=== PATIENT | male | born 1950 | race Caucasian/White ===

== ENCOUNTER 2016-07-10 08:55 | Outpatient (CLI) | payer MEDICARE, OTHER | END 2016-07-10 08:56 | disposition home or self-care (01) | DX: Z12.5 Encounter for screening for malignant neoplasm of prostate (principal); I10 Essential (primary) hypertension; G47.30 Sleep apnea, unspecified; D12.6 Benign neoplasm of colon, unspecified; I25.10 Atherosclerotic heart disease of native coronary artery without angina pectoris; R73.9 Hyperglycemia, unspecified; M54.5 Low back pain | CPT/HCPCS: 36415; 80053; G0103 ==

== ENCOUNTER 2016-10-31 08:00 | Outpatient (CLI) | payer MEDICARE, OTHER ==
[2016-10-31 14:22] LABS: ALBUMIN/GLOBULIN RATIO 1.8 (1.0-2.2); BILIRUBIN,TOTAL 0.8 mg/dL (0.2-1.0); CALCIUM 9.2 mg/dL (8.5-10.3); CREATININE 0.8 mg/dL (0.6-1.2); POTASSIUM 3.6 mmol/L (3.5-5.0); TOTAL PROTEIN 6.7 g/dL (6.7-8.2)
[2016-10-31 14:26] LABS: HEMOGLOBIN A1C 0.72 g/dL
== END 2016-10-31 08:01 | disposition home or self-care (01) ==
LOC: LAB.WCP 08:00
PROVIDERS: ATTEND Family Medicine
DX: M54.5 Low back pain (principal); R73.01 Impaired fasting glucose; G47.30 Sleep apnea, unspecified; I25.10 Atherosclerotic heart disease of native coronary artery without angina pectoris; K22.70 Barrett's esophagus without dysplasia
CPT/HCPCS: 36415; 80053; 83036

== ENCOUNTER 2017-04-29 08:00 | Outpatient (CLI) | payer MEDICARE, OTHER ==
[2017-04-29 12:31] LABS: BASOPHILS % (AUTO) 0.6 %; EOSINOPHILS # (AUTO) 0.4 10^3/uL (0.0-0.7); EOSINOPHILS % (AUTO) 8.3 %; HCT - HEMATOCRIT 43.2 % (42.0-52.0); HGB - HEMOGLOBIN 14.8 g/dL (14.0-18.0); LYMPHOCYTES # (AUTO) 1.6 10^3/uL (1.5-3.5); LYMPHOCYTES % (AUTO) 29.7 %; MEAN CORPUSCULAR HGB CONC 34.3 g/dL (32.0-36.0); MEAN CORPUSCULAR VOLUME 90.3 fL (80.0-94.0); MEAN PLATELET VOLUME 10.4 fL (7.4-11.4); MONOCYTES # (AUTO) 0.3 10^3/uL (0.0-1.0); MONOCYTES % (AUTO) 6.4 %; NEUTROPHILS # (AUTO) 2.9 10^3/uL (1.5-6.6); RED BLOOD COUNT 4.78 10^6/uL (4.70-6.10); RED CELL DISTRIBUTION WIDTH 14.5 % (12.0-15.0); UNCORRECTED WHITE BLOOD COUNT 5.4 x10^3/uL; WHITE BLOOD COUNT 5.4 x10^3/uL (4.8-10.8)
[2017-04-29 12:59] LABS: ALBUMIN/GLOBULIN RATIO 1.8 (1.0-2.2); BILIRUBIN,TOTAL 0.7 mg/dL (0.2-1.0); BUN - BLOOD UREA NITROGEN 20 mg/dL (6-20); CALCIUM 9.6 mg/dL (8.5-10.3); CARBON DIOXIDE - CO2 29 mmol/L (21-32); CHLORIDE 101 mmol/L (101-111); CHOLESTEROL 95 mg/dL; CREATININE 0.9 mg/dL (0.6-1.2); GFR - MDRD 84 (>89); GLUCOSE 97 mg/dL (70-100); HDL CHOLESTEROL 32 mg/dL; LDL/HDL RATIO 1.3 (<3.6); POTASSIUM 3.7 mmol/L (3.5-5.0); SODIUM 138 mmol/L (135-145); TOTAL PROTEIN 7.3 g/dL (6.7-8.2); TRIGLYCERIDES 113 mg/dL; VLDL CHOLESTEROL 23 mg/dL
[2017-04-29 13:24] LABS: HEMOGLOBIN A1C 0.58 g/dL
== END 2017-04-29 08:01 | disposition home or self-care (01) ==
LOC: LAB.WCP 08:00
PROVIDERS: ATTEND Family Medicine
DX: M54.5 Low back pain (principal); R73.01 Impaired fasting glucose; I25.10 Atherosclerotic heart disease of native coronary artery without angina pectoris; M17.0 Bilateral primary osteoarthritis of knee
CPT/HCPCS: 36415; 80053; 80061; 83036; 85025

== ENCOUNTER 2017-05-13 14:20 | Outpatient (CLI) | payer MEDICARE, OTHER ==
[2017-05-13 19:02] LABS: BASOPHILS % (AUTO) 0.4 %; EOSINOPHILS # (AUTO) 0.5 10^3/uL (0.0-0.7); EOSINOPHILS % (AUTO) 8.7 %; HCT - HEMATOCRIT 42.5 % (42.0-52.0); HGB - HEMOGLOBIN 14.3 g/dL (14.0-18.0); LYMPHOCYTES # (AUTO) 1.5 10^3/uL (1.5-3.5); LYMPHOCYTES % (AUTO) 25.5 %; MEAN CORPUSCULAR HEMOGLOBIN 30.7 pg (27.0-31.0); MEAN CORPUSCULAR HGB CONC 33.7 g/dL (32.0-36.0); MEAN CORPUSCULAR VOLUME 91.2 fL (80.0-94.0); MEAN PLATELET VOLUME 10.4 fL (7.4-11.4); MONOCYTES # (AUTO) 0.3 10^3/uL (0.0-1.0); MONOCYTES % (AUTO) 5.7 %; NEUTROPHILS # (AUTO) 3.5 10^3/uL (1.5-6.6); NEUTROPHILS % (AUTO) 59.7 %; RED BLOOD COUNT 4.65 10^6/uL (4.70-6.10); RED CELL DISTRIBUTION WIDTH 14.5 % (12.0-15.0); UNCORRECTED WHITE BLOOD COUNT 5.9 x10^3/uL; WHITE BLOOD COUNT 5.9 x10^3/uL (4.8-10.8)
[2017-05-13 19:11] LABS: BILIRUBIN,TOTAL 0.8 mg/dL (0.2-1.0); CALCIUM 8.7 mg/dL (8.5-10.3); CREATININE 0.8 mg/dL (0.6-1.2); POTASSIUM 3.6 mmol/L (3.5-5.0); TOTAL PROTEIN 6.5 g/dL (6.7-8.2)
[2017-05-13 19:21] LABS: H. PYLORI IGG ANTIBODY Negative (Negative); HPYLORI NEG QC Negative (Negative); HPYLORI POS QC POSITIVE (Positive)
== END 2017-05-13 14:21 | disposition home or self-care (01) ==
LOC: LAB.WCP 14:20
PROVIDERS: ATTEND Family Medicine
DX: R10.13 Epigastric pain (principal)
CPT/HCPCS: 36415; 80053; 83690; 85025; 87339

== ENCOUNTER 2017-05-15 11:28 | Outpatient (CLI) | payer MEDICARE, OTHER ==
[2017-05-15] MEDS ORDERED: IOPAMIDOL-300 50 ML VIAL ONE (11:40)
[2017-05-15] MEDS ORDERED: IOPAMIDOL-300 100 ML VIAL ONE (11:40)
[2017-05-15] MEDS ORDERED: IOPAMIDOL-300 50 ML VIAL PO ONE (11:47)
[2017-05-15] MEDS ORDERED: IOPAMIDOL-300 100 ML VIAL IVP ONE (13:28)
--- NOTE | 2017-05-15 19:32 | CT Report ---
ABDOMEN AND PELVIS CT: 05/15/2017 COMPARISON: Pelvis CT 01/18/2010. INDICATION: Epigastric pain. TECHNIQUE: Axial imaging of the abdomen and pelvis was performed with intravenous and oral contrast, 100 mL Isovue-300. In accordance with CT protocol optimization, one or more of the following dose reduction techniques were utilized for this exam: automated exposure control, adjustment of mA and/or KV based on patient size, or use of iterative reconstructive technique. FINDINGS: Sternotomy is noted. Several hepatic cysts measure up to 1.9 cm. A right renal stone measures 9 mm and appears nonobstructive. There are several left renal stones that measure up to 9 mm. There is an 8 mm stone in the proximal left ureter which appears to cause mild obstruction. The spleen, pancreas, and adrenal glands appear unremarkable. No free air or free fluid is seen in the abdomen or pelvis. Again seen is a right inguinal hernia which contains a cystocele. Penile implant is noted. No abnormality of bowel is demonstrated. No bone lesions. Right renal cortical cyst is noted. IMPRESSION: BILATERAL RENAL STONES. IN BOTH KIDNEYS THEY MEASURE UP TO APPROXIMATELY 9 MM. IN ADDITION, THERE IS AN 8 MM OBSTRUCTING STONE IN THE PROXIMAL LEFT URETER. RIGHT INGUINAL HERNIA CONTAINS A CYSTOCELE. JOB #: [id number] EXT JOB #: [id number] GONZALO
== END 2017-05-15 11:29 | disposition home or self-care (01) ==
LOC: DI 11:28
PROVIDERS: ATTEND Family Medicine
DX: N20.2 Calculus of kidney with calculus of ureter (principal)
CPT/HCPCS: 74177; Q9967

== ENCOUNTER 2017-05-17 22:28 | Emergency (ER) | payer MEDICARE, OTHER ==
[2017-05-17 23:34] LABS: BILIRUBIN,URINE NEGATIVE (NEGATIVE)
[2017-05-17 23:41] LABS: UA w/ MICROSCOPIC CHARGE YES; UR CULTURE IF IND NOT INDICATED; WBC,URINE 0-3 /HPF (0-3)
[2017-05-17 23:50] LABS: BASOPHILS % (AUTO) 0.7 %; EOSINOPHILS # (AUTO) 0.4 10^3/uL (0.0-0.7); EOSINOPHILS % (AUTO) 5.6 %; HCT - HEMATOCRIT 42.6 % (42.0-52.0); HGB - HEMOGLOBIN 14.9 g/dL (14.0-18.0); LYMPHOCYTES # (AUTO) 1.7 10^3/uL (1.5-3.5); LYMPHOCYTES % (AUTO) 26.4 %; MEAN CORPUSCULAR HEMOGLOBIN 31.5 pg (27.0-31.0); MEAN PLATELET VOLUME 9.3 fL (7.4-11.4); MONOCYTES # (AUTO) 0.4 10^3/uL (0.0-1.0); MONOCYTES % (AUTO) 6.8 %; NEUTROPHILS % (AUTO) 60.5 %; RED BLOOD COUNT 4.74 10^6/uL (4.70-6.10); RED CELL DISTRIBUTION WIDTH 14.3 % (12.0-15.0); UNCORRECTED WHITE BLOOD COUNT 6.5 x10^3/uL; WHITE BLOOD COUNT 6.5 x10^3/uL (4.8-10.8)
[2017-05-17 23:59] LABS: ALBUMIN/GLOBULIN RATIO 1.7 (1.0-2.2); BILIRUBIN,TOTAL 0.7 mg/dL (0.2-1.0); CALCIUM 9.1 mg/dL (8.5-10.3); CREATININE 0.8 mg/dL (0.6-1.2); POTASSIUM 3.5 mmol/L (3.5-5.0); TOTAL PROTEIN 7.2 g/dL (6.7-8.2)
--- NOTE | 2017-05-18 00:14 | Ultrasound Preliminary Report ---
Exam: US RETROPERITONEAL IMPRESSION: 1. Nonspecific moderate post void bladder volume residual. 2. Mild to moderate left-sided hydronephrosis. Faintly visible left ureteral jet. This may be due to a recently passed stone from the left renal collecting system into the bladder. Partially obstructing stone in the ureter difficult to exclude with certainty. 3. Infrarenal stones noted bilaterally, 2 in the right and at least one on the left. These measure up to 7 mm within the right lower kidney. [facility] SITE ID: [id number]
--- NOTE | 2017-05-18 00:21 | Ultrasound Report ---
EXAM: RENAL ULTRASOUND EXAM DATE: 05/17/2017 11:45 PM. CLINICAL HISTORY: Kidney stones, follow-up. COMPARISON: CT 05/11/2017. TECHNIQUE: Real-time scanning was performed with static images obtained. FINDINGS: Right Kidney: 12.6 x 5.1 x 5.0 cm. No suspicious renal lesion seen at this time. There is a tiny cyst arising posterolaterally from the right mid to upper kidney measuring 9 mm. There are two stones wit hin the right kidney. Upper pole stone measures 5 mm and the lower pole stone measures 7 mm. Left Kidney: 14.5 x 6.5 x 6.2 cm. Normal parenchymal echogenicity. There is mild hydronephrosis. Ther e is a 6 mm mid kidney stone. Mild to moderate hydronephrosis. Bladder: Bilateral ureteral jets are visualized. Bladder measures 160 mL in volume prevoid. Postvoid volume is 47 mL. Other: None. IMPRESSION: 1. Nonspecific moderate postvoid bladder volume residual. 2. Mild to moderate left-sided hydronephrosis. Faintly visible left ureteral jet. This may be due to a recently passed stone from the left renal collecting system into the bladder. Partially obstructing stone within the ureter difficult to exclude with certainty. 3. Infrarenal stones noted bilaterally, two in the right and at least one on the left. These measure up to 7 mm within the right lower kidney. [facility] Referring Provider Line: [phone] SITE ID: [id number]
--- NOTE | 2017-05-18 00:43 | ED Physician Documentation ---
PD HPI ABD PAIN - Stated complaint Stated Complaint: ABD PX - Chief complaint Chief Complaint: Abd Pain - History obtained from History obtained from: Patient, Family - History of Present Illness Timing - onset: How many weeks ago (3) Timing - details: Now resolved, Waxing and waning Quality: Cramping, Aching, Indigestion Location: Epigastric Worsened by: Eating Associated symptoms: No: Nausea, Vomiting, Diarrhea, Constipation Similar symptoms before: Work up / diagnostics, Treatment, Follow up Recently seen: Clinic - Additional information Additional information: patient is a 67 year old male with a history of GERD, perkins's esophagus and bypass surgery who is presenting to the emergency department for a three week intermittent history of abdominal pain. patient went to see his pmd yesterday who ordered a CT abdomen/pelvis but patient did not know the results. patient states that he had some more pain tonight so he came in for evaluation. patient reports that he has follow up egd on thursday. patient takes daily ppi, but did not take anything for the acute pain. Review of Systems Constitutional: denies: Fever, Chills Eyes: reports: Reviewed and negative Ears: reports: Reviewed and negative Nose: reports: Reviewed and negative Throat: reports: Reviewed and negative Cardiac: denies: Chest pain / pressure, Palpitations, Pedal edema Respiratory: denies: Dyspnea, Cough, Wheezing GI: reports: Abdominal Pain. denies: Nausea, Vomiting, Constipation, Diarrhea : denies: Dysuria, Frequency, Hematuria Musculoskeletal: denies: Back pain, Extremity pain Neurologic: denies: Generalized weakness, Focal weakness, Numbness Immunocompromised: denies: Immunocompromised PD PAST MEDICAL HISTORY - Past Medical History Past Medical History: Yes Cardiovascular: Hypertension, High cholesterol Respiratory: Sleep apnea, CPAP use Neuro: None Endocrine/Autoimmune: None GI: GERD, Colon polyps : None HEENT: Other Psych: Depression, ADD/ADHD Musculoskeletal: None Derm: None Other Past Medical History: Perkins's esophagus - Past Surgical History Past Surgical History: Yes General: Hiatal hernia repair Cardiovascular: CABG HEENT: Tonsil/Adenoidectomy Derm: Skin cancer surgery - Present Medications Home Medications: Ambulatory Orders Medication Instructions Recorded Confirmed Aspirin 81 mg PO DAILY 08/18/13 04/23/16 Cetirizine [ZyrTEC] 10 mg PO QPM 08/18/13 04/23/16 FLUoxetine [PROzac] 30 mg PO QPM 08/18/13 04/23/16 Furosemide 20 mg PO DAILY 08/18/13 04/23/16 Levothyroxine [Synthroid] 100 mcg PO DAILY 08/18/13 04/23/16 Losartan [Cozaar] 50 mg PO DAILY 08/18/13 04/23/16 Modafinil 200 mg PO DAILY 08/18/13 04/23/16 Potassium Chloride [K-Dur] 20 meq PO ONCE 08/18/13 04/23/16 lamoTRIgine [LaMICtal] 200 mg PO QPM 08/18/13 04/23/16 Calcium Carb/D3/Magnesium/Zinc 1 tab PO DAILY 02/10/14 04/23/16 [Ryan Mag Zinc + D3 Tablet] Cyanocobalamin (Vitamin B-12) 1,000 mcg PO DAILY 02/10/14 04/23/16 [B-12] Fluticasone [Flonase] 1 sprays MIKEY DAILY PRN 02/10/14 04/23/16 Glucosamine Sulfate Dipot Chlr 1,500 mg PO DAILY 02/10/14 04/23/16 [Glucosamine] Multivitamin [Multivitamins] 1 each PO DAILY 02/10/14 04/23/16 [place]mond-3 Fatty Acids/Fish Oil 1 cap PO DAILY 02/10/14 04/23/16 [[place] 3 1,000 mg Softgel] Ubidecarenone [Co Q-10] 50 mg PO DAILY 02/10/14 04/23/16 Albuterol Sulfate 1 puffs INH DAILY PRN 04/23/16 04/23/16 Cholecalciferol (Vitamin D3) 1 tab PO DAILY 04/23/16 04/23/16 [Vitamin D3] Naproxen Sodium [Aleve] 1 tab PO DAILY PRN 04/23/16 04/23/16 Pantoprazole [Protonix] 1 tab PO DAILY 04/23/16 04/23/16 Rosuvastatin Calcium [Crestor] 1 tab PO DAILY 04/23/16 04/23/16 Temazepam 1 tab PO DAILY 04/23/16 04/23/16 hydroCHLOROthiazide 1 tab PO DAILY 04/23/16 04/23/16 [Hydrochlorothiazide] - Allergies Allergies/Adverse Reactions: Allergies Allergy/AdvReac Type Severity Reaction Status Date / Time No Known Drug Allergies Allergy Verified 02/14/14 10:11 - Social History Does the pt smoke?: No Smoking Status: Never smoker Does the pt drink ETOH?: No Does the pt have substance abuse?: No - Immunizations Immunizations are current?: Yes PD ED PE NORMAL - Vitals Vital signs reviewed: Yes - General General: Alert and oriented X 3, No acute distress, Well developed/nourished - HEENT HEENT: Atraumatic, PERRL - Neck Neck: Supple, no meningeal sign, No JVD - Cardiac Cardiac: RRR, No murmur - Respiratory Respiratory: No respiratory distress, Clear bilaterally - Abdomen Abdomen: Soft - Derm Derm: Normal color, Warm and dry, No rash - Extremities Extremities: No deformity, No tenderness to palpate, Normal ROM s pain, No edema - Neuro Neuro: Alert and oriented X 3, No motor deficit, No sensory deficit, Normal speech - Psych Psych: Normal mood PD ED PE EXPANDED - Abdomen Abdomen: Tender to palpation, Epigastric, Surgical scars, Other (obese abdomen) . No: Rebound, Guarding Results - Vitals Vitals: Vital Signs - 24 hr 05/17/17 22:32 Temperature 36.3 C L Heart Rate 74 Respiratory 18 Rate Blood Pressure 148/91 H O2 Saturation 100 Oxygen O2 Source Room air - EKG (time done) 2240 Rate: Rate (enter#) (66) Rhythm: NSR [place]: Normal Intervals: Normal [place] QRS: Normal Ischemia: Normal ST segments Compare to prior EKG: Old EKG unavailable - Labs Labs: Laboratory Tests 05/17/17 05/17/17 05/17/17 11:43 11:43 11:43 WBC 6.5 RBC 4.74 Hgb 14.9 Hct 42.6 MCV 90.0 MCH 31.5 H MCHC 35.0 RDW 14.3 Plt Count 137 MPV 9.3 Neut # 4.0 Lymph # 1.7 Gray # 0.4 Eos # 0.4 Baso # 0.0 Absolute Nucleated RBC 0.00 Nucleated RBC % 0.0 Sodium 138 Potassium 3.5 Chloride 104 Carbon Dioxide 25 Anion Gap 9.0 BUN 18 Creatinine 0.8 Estimated GFR (MDRD) 97 Glucose 106 H Calcium 9.1 Total Bilirubin 0.7 AST 36 ALT 36 Alkaline Phosphatase 31 L Troponin I < 0.04 B-Natriuretic Peptide Total Protein 7.2 Albumin 4.5 Globulin 2.7 Albumin/Globulin Ratio 1.7 Lipase 19 L Urine Color Urine Clarity Urine pH Ur Specific [place] Urine Protein Urine Glucose (UA) Urine Ketones Urine Occult Blood Urine Nitrite Urine Bilirubin Urine Urobilinogen Ur Leukocyte Esterase Urine RBC Urine WBC Ur Squamous Epith Cells Urine Bacteria Urine Mucus Ur Microscopic Review Urine Culture Comments 05/17/17 05/17/17 11:43 23:25 WBC RBC Hgb Hct MCV MCH MCHC RDW Plt Count MPV Neut # Lymph # Gray # Eos # Baso # Absolute Nucleated RBC Nucleated RBC % Sodium Potassium Chloride Carbon Dioxide Anion Gap BUN Creatinine Estimated GFR (MDRD) Glucose Calcium Total Bilirubin AST ALT Alkaline Phosphatase Troponin I B-Natriuretic Peptide 33 Total Protein Albumin Globulin Albumin/Globulin Ratio Lipase Urine Color YELLOW Urine Clarity HAZY Urine pH 6.0 Ur Specific [place] 1.025 Urine Protein NEGATIVE Urine Glucose (UA) NEGATIVE Urine Ketones NEGATIVE Urine Occult Blood MODERATE H Urine Nitrite NEGATIVE Urine Bilirubin NEGATIVE Urine Urobilinogen 0.2 (NORMAL) Ur Leukocyte Esterase NEGATIVE Urine RBC 11-25 H Urine WBC 0-3 Ur Squamous Epith Cells RARE Squamous Urine Bacteria None Seen Urine Mucus Moderate Strands Ur Microscopic Review INDICATED Urine Culture Comments NOT INDICATED - Rads (name of study) retroperitoneal ultrasound Radiology: Final report received (mild left sided hydro, likey passed stone, right sided renal calculi) PD MEDICAL DECISION MAKING - ED course Complexity details: reviewed old records, reviewed results, re-evaluated patient , considered differential, d/w patient, d/w family ED course: Patient was seen and examined at bedside. patient was well appearing. ekg was performed and within normal limits. IV access was gained and labs were drawn. CT from the previous day was reviewed and showed that there were multiple stones. Ultrasound was ordered. Urine was collected. Patient was offered pain medication but stated that his pain had resolved. Patient's ultrasound and previous cT showed signs of passing stones but patient denied any pain. Patient 's urine showed no sign of infection. Patient's cardiac work up was negative and patient's pain was likely secondary to his known esophagitis. Patient was scheduled for hiatal hernia repair and repeat egd. Patient and family were made aware of the findings and felt comfortable with the discharge and follow up planning. patient required no further work up and was stable for discharge with outpatient follow up. Departure - Departure Disposition: 01 Home, Self Care Clinical Impression: Barretts esophagus Condition: Good Instructions: ED GERD Follow-Up: Jax Palencia MD [Primary Care Provider] - Tomorrow Comments: Your diagnostics today were within normal limits aside from the renal stones found on your CT yesterday. Your symptoms are likely secondary to the GERD and the perkins's esophagus. You should continue to take your daily medication and then you can take maalox for breakthrough pain. You should avoid large meals, acidic food, alcohol, spicey foods and lying down after eating as they can all exacerbate your symptoms. You may return to the emergency department at any time if necessary for new, worsening or uncontrollable symptoms.
[2017-05-18 00:50] VITALS: BP 139/81
== END 2017-05-18 00:50 | disposition home or self-care (01) ==
LOC: ED 22:28
DX: K22.70 Barrett's esophagus without dysplasia (principal); I10 Essential (primary) hypertension; E78.00 Pure hypercholesterolemia, unspecified; Z95.1 Presence of aortocoronary bypass graft; Z79.82 Long term (current) use of aspirin
CPT/HCPCS: 36415; 76770; 80053; 81001; 81003; 83690; 83880; 84484; 85025; 87086; 93005; 99283; 99284

== ENCOUNTER 2017-05-19 08:48 | Day surgery (SDC) | payer MEDICARE, OTHER ==
[2017-05-19] MEDS ORDERED: LACTATED RINGERS 1,000 ML IV ONE ×3 (08:50→14:55)
[2017-05-19] MEDS ORDERED: ceFAZolin 3 GM/20 ML SYRINGE ONE (08:51)
[2017-05-19] MEDS ORDERED: BUPIVACAINE 0.5% PF 30 ML VIAL INFIL ONE (12:34)
[2017-05-19] MEDS ORDERED: DEXAMETHASONE 4 MG/ML VIAL IVP ONE (13:30)
[2017-05-19] MEDS ORDERED: KETOROLAC 30 MG/ML VIAL IVP ONE (13:30)
[2017-05-19] MEDS ORDERED: LIDOCAINE-MPF 2% 5 ML VIAL IM ONE (13:30)
[2017-05-19] MEDS ORDERED: ACETAMINOPHEN 1,000 MG/100 ML 100 ML IV ONE (13:30)
[2017-05-19] MEDS ORDERED: ePHEDrine 50 MG/ML VIAL IVP ONE (13:30)
[2017-05-19] MEDS ORDERED: MIDAZOLAM 2 MG/2 ML VIAL IVP ONE (13:30)
[2017-05-19] MEDS ORDERED: ONDANSETRON 4 MG/2 ML VIAL IVP ONE (13:30)
[2017-05-19] MEDS ORDERED: fentaNYL 100 MCG/2 ML VIAL IVP ONE (13:30)
[2017-05-19] MEDS ORDERED: PROPOFOL 200 MG/20 ML VIAL IVP ONE (13:30)
--- NOTE | 2017-05-19 14:27 | OPERATIVE REPORT ---
Operative Report - General Procedure Date: 05/19/17 Planned Procedure: Incarcerated recurrent right inguinal herniorrhaphy with mesh Pre-Op Diagnosis: Incarcerated recurrent right inguinal hernia Procedure Performed: Incarcerated recurrent right inguinal herniorrhaphy with mesh with explantation of migrated mesh Post Op Diagnosis: Incarcerated recurrent right direct inguinal hernia - Procedure Note Primary Surgeon: Que Ibanez MD Anesthesia Provider: Timmy Stevenson Anesthesia Technique: General ET tube, Local (30 mL 1/2% marcaine) IV Fluids (mL): 1,800 Estimated Blood Loss (mL): 20 Complications: None. - Other Other Information/Narrative: OPERATIVE DESCRIPTION/REPORT: After verbal and written informed consent was obtained detailing the risks of infection, bleeding requiring transfusion with its risks, nerve injury, and , and after I met with the patient confirming the surgery and the site of the surgery and after initialing the site of the surgery with a surgical marker , the patient was brought to the operative suite and placed supine on the operating table. Great care was taken to avoid pressure points to prevent pressure necrosis or nerve injury. Monitoring devices were applied along with TEDs and pneumatic compressive stockings (to prevent DVT). The patient received preoperative antibiotics for surgical prophylaxis. [anesthesiologist] sedated and anethetized the patient for the entire procedure. The patient was prepped and draped in the usual sterile manner. With the patient draped my initials were clearly visible. A "time in" then confirmed that the paitient was identified with 3 identifiers (name, birthdate and medical record number), the history and physical was in the chart, the signed consent confirming the procedure was in the chart, the patient was in the correct position, the aforementioned prophylactic measures were in place or given, we had the correct personnel and equipment to complete the procedure and that anesthesia, surgery and nursing were given an opportunuty to express any concerns. With the agreement of everyone in the room, we proceeded with the operation. After the inguinal area was injected with % marcaine, anesthetizing the area , a standard inguinal incision was made and dissection was carried down to the external oblique aponeurosis using a combination of Metzenbaum scissors and Bovie electrocautery. The external oblique aponeurosis was cleared of overlying adherent tissue, and the external ring was delineated. The external oblique was the incised with a scalpel and this incision was carried out to the external ring using Metzenbaum scissors. Having exposed the inguinal canal, the cord structures were from the canal using blunt dissection, and a [place] drain was placed around the cord structures at the level of the pubic tubercle. This Gretel drain was then used to retract the cord structures as needed. Adherent cremasteric muscle was dissected free from the cord using Bovie electrocautery. The cord was then explored using a combination of sharp and blunt dissection , and no sac was found. The hernia was found coming from the floor of the inguinal canal medial to the inferior epigastric vessels. This was dissected back to the hernia opening. The hernia was inverted back into the abdominal cavity and a large Bard Perfix plug (Ref# [id number], Lot# [id number]) inserted into the hernia defect. The plug was secured to the edge of the hernia defect using interrupted 2-0 PDS sutures. This permitted the floor of the inguinal canal to be repaired without the hernia in my way. The Perfix enlay patch was then placed on the floor of the inguinal canal and secured superiorly to the conjoined tendon and inferiorly to the shelving edge of [place] ligament using interrupted 2-0 PDS sutures. At the pubic tubercle a 2-0 PDS stitch was used to secure the mesh. The mesh was secured around the cord structures with a 2-0 PDS loosely thus creating a new internal ring. The Gretel drain was removed. The wound was then irrigated using sterile saline, and hemostasis was obtained using Bovie electrocautery. The incision in the external oblique was approximated using a 2-0 Vicryl in a running fashion , thus reforming the external ring. The skin incision was approximated with 4- 0 Monocryl in a subcuticular fashion. The skin was prepped with benzoin and steristrips were applied. At this point a time out was performed that confirmed that all the counts were correct, the procedure that was performed, the blood loss, the IV fluids administered, and the patients condition. A dressing was then applied. Gentle downward traction ensured that the testes were well seated in the scrotum. Having tolerated the procedure well, the patient was taken to recovery room in good and stable condition.
[2017-05-19] MEDS: HYDROmorphone 1 MG/ML SYRINGE ONE ×2 (14:42→14:47)
[2017-05-19] MEDS ORDERED: oxyCOD/ACETAMIN 5 MG/325 MG TABLET PO ONE (15:30)
[2017-05-19 16:06] VITALS: BP 120/62
== END 2017-05-19 08:49 | disposition home or self-care (01) ==
LOC: SDS 08:48
PROVIDERS: ATTEND Surgery
PROC: 0YU50JZ Supplement Right Inguinal Region with Synthetic Substitute, Open Approach (ICD-10-PCS; principal; 2017-05-19 09:45)
DX: K40.31 Unilateral inguinal hernia, with obstruction, without gangrene, recurrent (principal); I10 Essential (primary) hypertension; E78.5 Hyperlipidemia, unspecified; M79.7 Fibromyalgia; I25.119 Atherosclerotic heart disease of native coronary artery with unspecified angina pectoris; Z95.1 Presence of aortocoronary bypass graft; Z79.82 Long term (current) use of aspirin
CPT/HCPCS: 49521; A9270; C1781; J0131; J1170; J7120

== ENCOUNTER 2017-06-22 10:14 | Day surgery (SDC) | payer MEDICARE, OTHER ==
[2017-06-22] MEDS ORDERED: LACTATED RINGERS 1,000 ML IV ONE (10:45)
[2017-06-22] MEDS ORDERED: fentaNYL 100 MCG/2 ML VIAL IVP ONE (11:22)
[2017-06-22] MEDS ORDERED: MIDAZOLAM 2 MG/2 ML VIAL IVP ONE (11:22)
[2017-06-22 12:17] VITALS: BP 113/72
== END 2017-06-22 10:15 | disposition home or self-care (01) ==
LOC: SDS 10:14
PROVIDERS: ATTEND Surgery
PROC: 0DB48ZX Excision of Esophagogastric Junction, Via Natural or Artificial Opening Endoscopic, Diagnostic (ICD-10-PCS; principal; 2017-06-22 11:15)
DX: K20.9 Esophagitis, unspecified (principal); I25.10 Atherosclerotic heart disease of native coronary artery without angina pectoris; I10 Essential (primary) hypertension; E78.5 Hyperlipidemia, unspecified; M79.7 Fibromyalgia; G47.30 Sleep apnea, unspecified; Z79.82 Long term (current) use of aspirin; Z95.1 Presence of aortocoronary bypass graft
CPT/HCPCS: 43239; J7120

== ENCOUNTER 2017-10-27 08:00 | Outpatient (CLI) | payer MEDICARE, OTHER | END 2017-10-27 08:01 | disposition home or self-care (01) | LOC: LAB.WCP 08:00 | PROVIDERS: ATTEND Family Medicine | DX: R31.9 Hematuria, unspecified (principal) | CPT/HCPCS: 87086 ==

== ENCOUNTER 2017-11-03 11:20 | Outpatient (CLI) | payer MEDICARE, OTHER ==
[2017-11-03] MEDS ORDERED: IOPAMIDOL-300 100 ML VIAL ONE (11:43)
[2017-11-03 12:22] LABS: ALBUMIN 4.2 g/dL (3.2-5.5); ALBUMIN/GLOBULIN RATIO 1.5 (1.0-2.2); BILIRUBIN,TOTAL 0.9 mg/dL (0.2-1.0); CREATININE 0.8 mg/dL (0.6-1.2)
[2017-11-03] MEDS ORDERED: IOPAMIDOL-300 100 ML VIAL IVP ONE (12:40)
--- NOTE | 2017-11-03 15:05 | CT Report ---
CT ABDOMEN AND PELVIS WITH AND WITHOUT CONTRAST: 11/03/2017 CLINICAL INDICATION: Hematuria. TECHNIQUE: Axial CT images of the abdomen and pelvis were obtained prior to and following 100 mL Isovue 300 intravenously, using split bolus technique. COMPARISON: CT 05/15/2017. FINDINGS: Limited evaluation of the lung bases demonstrates minimal atelectasis. ABDOMEN: On the unenhanced images, there is bilateral nephrolithiasis. There is an 8 x 4 mm calculus in the proximal left ureter, producing hydronephrosis, and a 10 x 7 mm calculus in the right renal pelvis, without evidence of hydronephrosis. Other, smaller calculi are present bilaterally. The liver demonstrates multiple cysts, stable from previous. The spleen, pancreas and adrenal glands appear unremarkable. No bowel dilatation, free gas, or free fluid is present. The gallbladder is not dilated. PELVIS: There is no evidence of distal ureterolithiasis or bladder calculus. No pelvic free fluid or adenopathy is seen. There are postoperative changes in the right inguinal region, and a portion of a penile implant is noted. IMPRESSION: BILATERAL NEPHROLITHIASIS, WITH LEFT HYDRONEPHROSIS. NO EVIDENCE OF SOLID RENAL MASS OR COLLECTING SYSTEM LESION. POSTOPERATIVE CHANGES. CT DOSE REDUCTION STATEMENT In accordance with CT protocol optimization, one or more of the following dose reduction techniques were utilized for this exam: automated exposure control, adjustment of mA and/or KV based on patient size, or use of iterative reconstructive technique. TD: 11/03/2017 14:45
== END 2017-11-03 11:21 | disposition home or self-care (01) ==
LOC: DI 11:20
PROVIDERS: ATTEND Family Medicine
DX: N13.30 Unspecified hydronephrosis (principal); N20.0 Calculus of kidney; Z87.442 Personal history of urinary calculi; R31.9 Hematuria, unspecified
CPT/HCPCS: 36415; 74178; 80053; Q9967

== ENCOUNTER 2017-12-08 20:01 | Emergency (ER) | payer MEDICARE, OTHER ==
[2017-12-08] MEDS ORDERED: ACETAMINOPHEN 325 MG TABLET PO STA (20:57)
[2017-12-08 20:58] LABS: BASOPHILS % (AUTO) 0.6 %; EOSINOPHILS % (AUTO) 0.4 %; HGB - HEMOGLOBIN 14.1 g/dL (14.0-18.0); LYMPHOCYTES # (AUTO) 0.6 10^3/uL (1.5-3.5); LYMPHOCYTES % (AUTO) 10.2 %; MEAN CORPUSCULAR HEMOGLOBIN 31.7 pg (27.0-31.0); MEAN CORPUSCULAR VOLUME 90.7 fL (80.0-94.0); MEAN PLATELET VOLUME 8.8 fL (7.4-11.4); MONOCYTES # (AUTO) 0.2 10^3/uL (0.0-1.0); MONOCYTES % (AUTO) 3.2 %; NEUTROPHILS # (AUTO) 4.7 10^3/uL (1.5-6.6); NEUTROPHILS % (AUTO) 85.6 %; PLT - PLATELET COUNT 129 10^3/uL (130-450); RED BLOOD COUNT 4.45 10^6/uL (4.70-6.10); RED CELL DISTRIBUTION WIDTH 13.5 % (12.0-15.0); WHITE BLOOD COUNT 5.5 x10^3/uL (4.8-10.8)
--- NOTE | 2017-12-08 21:05 | ED Physician Documentation ---
History of Present Illness - Stated complaint Stated Complaint: DIZZY/FEVER/COUGH/WEAKNESS - Chief complaint Chief Complaint: General - History obtained from History obtained from: Patient - History of Present Illness Timing: How many days ago (2) Improved by: no ameliorating factors Worsened by: no exacerbating factors - Additonal information Additional information: last 2 nights, patient had episode of rigorous chills and again tonight. This evening felt subjective fever (did not take temperature at home). Also mild cough. Has had urinary frequency with dysuria. Has mild, episodic right flank pain. Patient had left ureteral stent placed 13 days ago this was removed and replaced 6 days ago; these were part of effort to remove kidney stone on left ( Dr. Baez at [facility]). Patient says he had a 5-day stay in the hospital for sepsis and he was worried that the shaking chills are reminiscent of that episode Review of Systems Constitutional: reports: Fever, Chills, Sweats Eyes: reports: Reviewed and negative Ears: reports: Reviewed and negative Nose: reports: Reviewed and negative Throat: reports: Reviewed and negative Cardiac: reports: Reviewed and negative Respiratory: reports: Cough. denies: Dyspnea GI: denies: Abdominal Pain, Nausea, Vomiting, Constipation, Diarrhea : reports: Frequency. denies: Dysuria Skin: denies: Rash Musculoskeletal: denies: Back pain, Extremity pain Neurologic: denies: Generalized weakness, Focal weakness, Numbness, Confused, Altered mental status, Headache PD PAST MEDICAL HISTORY - Past Medical History Cardiovascular: Hypertension, High cholesterol, Coronary artery disease, Angina , Arrhythmia Respiratory: Sleep apnea, CPAP use Endocrine/Autoimmune: None GI: GERD, Colon polyps, Other : None, Kidney stones HEENT: Other Psych: Depression, ADD/ADHD Musculoskeletal: Fibromyalgia, Chronic back pain Derm: None - Past Surgical History Past Surgical History: Yes General: Colonoscopy, EGD Cardiovascular: CABG HEENT: Tonsil/Adenoidectomy Derm: Skin cancer surgery - Present Medications Home Medications: Ambulatory Orders Medication Instructions Recorded Confirmed Aspirin 81 mg PO BID 08/18/13 05/19/17 Cetirizine [ZyrTEC] 10 mg PO DAILY 08/18/13 05/18/17 FLUoxetine [PROzac] 30 mg PO DAILY 08/18/13 05/18/17 Furosemide 40 mg PO DAILY 08/18/13 05/18/17 Levothyroxine [Synthroid] 100 mcg PO DAILY 08/18/13 05/18/17 Losartan [Cozaar] 50 mg PO DAILY 08/18/13 05/18/17 Modafinil 100 mg PO DAILY 08/18/13 05/18/17 Potassium Chloride [K-Dur] 40 meq PO ONCE 08/18/13 05/18/17 lamoTRIgine [LaMICtal] 200 mg PO QPM 08/18/13 05/19/17 Calcium Carb/D3/Magnesium/Zinc 1 tab PO QPM 02/10/14 05/18/17 [Ryan Mag Zinc + D3 Tablet] Cyanocobalamin (Vitamin B-12) 1,000 mcg PO QPM 02/10/14 05/18/17 [B-12] Fluticasone [Flonase] 1 sprays MIKEY DAILY PRN 02/10/14 05/18/17 Glucosamine Sulfate Dipot Chlr 1,500 mg PO DAILY 02/10/14 05/18/17 [Glucosamine] Multivitamin [Multivitamins] 1 each PO QPM 02/10/14 05/18/17 [place]-3 Fatty Acids/Fish Oil 1,000 mg PO DAILY 02/10/14 05/18/17 [[place] 3 1,000 mg Softgel] Ubidecarenone [Co Q-10] 50 mg PO QPM 02/10/14 05/18/17 Albuterol Sulfate 1 puffs INH DAILY PRN 04/23/16 05/19/17 Cholecalciferol (Vitamin D3) 1 tab PO DAILY 04/23/16 05/18/17 [Vitamin D3] Naproxen Sodium [Aleve] 1 tab PO DAILY PRN 04/23/16 05/18/17 Pantoprazole [Protonix inj] 80 mg PO DAILY 04/23/16 05/18/17 Rosuvastatin Calcium [Crestor] 1 tab PO QPM 04/23/16 05/18/17 Cyclobenzaprine [Flexeril] 10 mg PO TID PRN 05/18/17 05/18/17 Ropinirole HCl 4 mg PO DAILY 05/18/17 05/18/17 oxyCODONE ER [OxyCONTIN] 5 mg PO TID 05/18/17 05/19/17 Ciprofloxacin HCl [Cipro] 500 mg PO BID #19 tablet 12/08/17 - Allergies Allergies/Adverse Reactions: Allergies Allergy/AdvReac Type Severity Reaction Status Date / Time No Known Drug Allergies Allergy Verified 05/19/17 10:56 - Social History Does the pt smoke?: No Smoking Status: Never smoker Does the pt drink ETOH?: No Does the pt have substance abuse?: No - Immunizations Immunizations are current?: Yes PD ED PE NORMAL - Vitals Vital signs reviewed: Yes - General General: Alert and oriented X 3, No acute distress (developed shaking chills during H+P), Well developed/nourished - HEENT HEENT: PERRL, EOMI, Moist mucous membranes - Neck Neck: Supple, no meningeal sign - Cardiac Cardiac: RRR, No murmur, No gallop, No rub - Respiratory Respiratory: No respiratory distress, Clear bilaterally - Abdomen Abdomen: Soft, Non tender, Non distended - Back Back: No CVA TTP, No spinal TTP - Derm Derm: Normal color, Warm and dry, No rash - Extremities Extremities: No edema - Neuro Neuro: Alert and oriented X 3 Results - Vitals Vitals: Vital Signs - 24 hr 12/08/17 12/08/17 12/08/17 20:10 20:32 22:03 Temperature 37.4 C 103 C H 39.5 C H Heart Rate 111 H 108 H 111 H Respiratory 20 20 25 H Rate Blood Pressure 128/72 123/69 117/69 O2 Saturation 95 93 93 12/08/17 12/09/17 23:12 00:09 Temperature 38.1 C H 37.8 C H Heart Rate 90 86 Respiratory 21 22 Rate Blood Pressure 109/60 108/59 L O2 Saturation 95 96 Oxygen O2 Source Room air - Labs Labs: Laboratory Tests 12/08/17 12/08/17 12/08/17 20:52 20:52 20:52 WBC 5.5 RBC 4.45 L Hgb 14.1 Hct 40.4 L MCV 90.7 MCH 31.7 H MCHC 35.0 RDW 13.5 Plt Count 129 L MPV 8.8 Neut # (Auto) 4.7 Lymph # (Auto) 0.6 L Sawyer # (Auto) 0.2 Eos # (Auto) 0.0 Baso # (Auto) 0.0 Absolute Nucleated RBC 0.02 Nucleated RBC % 0.3 Sodium 131 L Potassium 3.5 Chloride 98 L Carbon Dioxide 22 Anion Gap 11.0 BUN 21 H Creatinine 1.2 Estimated GFR (MDRD) 61 L Glucose 119 H Lactic Acid 0.9 Calcium 9.2 Total Bilirubin 1.6 H AST 31 ALT 29 Alkaline Phosphatase 29 L B-Natriuretic Peptide Total Protein 7.6 Albumin 4.5 Globulin 3.1 Albumin/Globulin Ratio 1.5 Lipase 20 L Urine Color Urine Clarity Urine pH Ur Specific [place] Urine Protein Urine Glucose (UA) Urine Ketones Urine Occult Blood Urine Nitrite Urine Bilirubin Urine Urobilinogen Ur Leukocyte Esterase Urine RBC Urine WBC Ur Squamous Epith Cells Urine Bacteria Ur Microscopic Review Urine Culture Comments 12/08/17 12/08/17 20:52 21:43 WBC RBC Hgb Hct MCV MCH MCHC RDW Plt Count MPV Neut # (Auto) Lymph # (Auto) Sawyer # (Auto) Eos # (Auto) Baso # (Auto) Absolute Nucleated RBC Nucleated RBC % Sodium Potassium Chloride Carbon Dioxide Anion Gap BUN Creatinine Estimated GFR (MDRD) Glucose Lactic Acid Calcium Total Bilirubin AST ALT Alkaline Phosphatase B-Natriuretic Peptide 47 Total Protein Albumin Globulin Albumin/Globulin Ratio Lipase Urine Color YELLOW Urine Clarity HAZY Urine pH 6.0 Ur Specific [place] 1.010 Urine Protein NEGATIVE Urine Glucose (UA) NEGATIVE Urine Ketones NEGATIVE Urine Occult Blood LARGE H Urine Nitrite POSITIVE H Urine Bilirubin NEGATIVE Urine Urobilinogen 0.2 (NORMAL) Ur Leukocyte Esterase SMALL H Urine RBC TNTC H Urine WBC 11-25 H Ur Squamous Epith Cells FEW Squamous Urine Bacteria Few Ur Microscopic Review INDICATED Urine Culture Comments INDICATED - Rads (name of study) chest xray Radiology: Prelim report reviewed, See rad report PD MEDICAL DECISION MAKING - ED course Complexity details: reviewed old records (reviewed OP report note (from min-ns) from 12/03 (urologic procedure at [facility])), reviewed results, re-evaluated patient, considered differential, d/w patient, d/w family ED course: D/W Dr. Bhatti (on-call urology [facility]), agrees with d/c on cipro and patient to contact his urology group (closed tomorrow due to December 09 holiday). - Sepsis Event Vital Signs: Vital Signs - 24 hr 12/08/17 12/08/17 12/08/17 20:10 20:32 22:03 Temperature 37.4 C 103 C H 39.5 C H Heart Rate 111 H 108 H 111 H Respiratory 20 20 25 H Rate Blood Pressure 128/72 123/69 117/69 O2 Saturation 95 93 93 12/08/17 12/09/17 23:12 00:09 Temperature 38.1 C H 37.8 C H Heart Rate 90 86 Respiratory 21 22 Rate Blood Pressure 109/60 108/59 L O2 Saturation 95 96 Oxygen O2 Source Room air Departure - Departure Disposition: 01 Home, Self Care Clinical Impression: Urinary tract infection Qualifiers: Urinary tract infection type: site unspecified Hematuria presence: with hematuria Qualified Code(s): N39.0 - Urinary tract infection, site not specified Condition: Good Instructions: ED UTI Cystitis Male Prescriptions: Ciprofloxacin HCl [Cipro] 500 mg PO BID #19 tablet Comments: Follow up with your urologist: call the office (12/10/17) to discuss follow-up recommendation Discharge Date/Time: 12/09/17 00:11
[2017-12-08 21:16] LABS: ALBUMIN 4.5 g/dL (3.2-5.5); ALBUMIN/GLOBULIN RATIO 1.5 (1.0-2.2); BILIRUBIN,TOTAL 1.6 mg/dL (0.2-1.0); CALCIUM 9.2 mg/dL (8.5-10.3); CREATININE 1.2 mg/dL (0.6-1.2); TOTAL PROTEIN 7.6 g/dL (6.7-8.2)
--- NOTE | 2017-12-08 21:46 | XRAY Report ---
Procedure Date: 12/08/2017 Accession Number: [id number] / [id number] Procedure: XR - Chest 2 View X-Ray CPT Code: 08830 FULL RESULT: EXAM: CHEST RADIOGRAPHY EXAM DATE: 12/08/2017 09:29 PM. CLINICAL HISTORY: Fever, cough. COMPARISON: 01/16/2010. TECHNIQUE: 2 views. FINDINGS: Lungs/Pleura: Lung volumes are symmetric. There is mild linear atelectasis at the right lung base. No consolidation or pleural effusion. Negative for edema or pneumothorax. Mediastinum: The heart size is normal. The trachea is midline. Other: None. IMPRESSION: No acute cardiopulmonary abnormality. RADIA
[2017-12-08 21:58] LABS: BILIRUBIN,URINE NEGATIVE (NEGATIVE); GLUCOSE, URINE (UA) NEGATIVE (NEGATIVE); KETONES,URINE (UA) NEGATIVE (NEGATIVE); LEUKOCYTE ESTERASE, URINE SMALL (NEGATIVE); NITRITE,URINE POSITIVE (NEGATIVE); OCCULT BLOOD,URINE LARGE (NEGATIVE); PROTEIN,URINE NEGATIVE (NEGATIVE); UROBILINOGEN,URINE 0.2 (NORMAL) E.U./dL (NORMAL)
[2017-12-08 22:01] LABS: CLARITY,URINE HAZY (CLEAR)
[2017-12-08 22:11] LABS: BACTERIA,URINE Few /HPF (None Seen); RBC,URINE TNTC /HPF (0-5); SQUAMOUS EPITHELIAL CELL,UR FEW Squamous (<= Few)
[2017-12-08] MEDS ORDERED: SODIUM CHLORIDE 0.9% 1,000 ML IV STA (22:19)
[2017-12-08] MEDS ORDERED: IBUPROFEN 600 MG TABLET PO STA (22:19)
[2017-12-08] MEDS ORDERED: CIPROFLOXACIN 400 MG/200 ML 200 ML IV ONE (22:20)
[2017-12-09 00:11] VITALS: BP 108/59
== END 2017-12-09 00:11 | disposition home or self-care (01) ==
LOC: ED 20:01
DX: N39.0 Urinary tract infection, site not specified (principal); I10 Essential (primary) hypertension; I25.10 Atherosclerotic heart disease of native coronary artery without angina pectoris; E78.00 Pure hypercholesterolemia, unspecified; Z95.1 Presence of aortocoronary bypass graft; Z79.82 Long term (current) use of aspirin; R05 Cough
CPT/HCPCS: 36415; 71046; 80053; 81001; 83605; 83690; 83880; 85025; 87040; 87086; 96365; 99284; A9270; 81003; 87077; 87181

== ENCOUNTER 2017-12-31 21:20 | Emergency (ER) | payer MEDICARE, OTHER ==
[2017-12-31 21:27] VITALS: BP 139/88
[2017-12-31] MEDS ORDERED: TETANUS/DIPHTHERIA/PERTUSSIS 0.5 ML SYRINGE IM ONE (21:28)
--- NOTE | 2017-12-31 21:47 | ED Physician Documentation ---
History of Present Illness - Stated complaint Stated Complaint: R HAND INJ - Chief complaint Chief Complaint: Laceration - History obtained from History obtained from: Patient, Family - History of Present Illness Timing: How many hours ago (7) Pain level max: 2 Pain level now: 1 Improved by: bandage Worsened by: movement - Additonal information Additional information: Patient is a right handed male, who cut his 3rd and 4th digits on the dryer drum while trying to repair his dryer today. Started at 1400 today. Unknown last Td. Review of Systems Skin: denies: Rash Neurologic: denies: Focal weakness, Numbness PD PAST MEDICAL HISTORY - Past Medical History Cardiovascular: Hypertension, High cholesterol, Coronary artery disease, Angina , Arrhythmia Respiratory: Sleep apnea, CPAP use Endocrine/Autoimmune: None GI: GERD, Colon polyps, Other : None, Kidney stones HEENT: Other Psych: Depression, ADD/ADHD Musculoskeletal: Fibromyalgia, Chronic back pain Derm: None - Past Surgical History Past Surgical History: Yes General: Colonoscopy, EGD Cardiovascular: CABG HEENT: Tonsil/Adenoidectomy Derm: Skin cancer surgery - Present Medications Home Medications: Ambulatory Orders Medication Instructions Recorded Confirmed Aspirin 81 mg PO BID 08/18/13 05/19/17 Cetirizine [ZyrTEC] 10 mg PO DAILY 08/18/13 05/18/17 FLUoxetine [PROzac] 30 mg PO DAILY 08/18/13 05/18/17 Furosemide 40 mg PO DAILY 08/18/13 05/18/17 Levothyroxine [Synthroid] 100 mcg PO DAILY 08/18/13 05/18/17 Losartan [Cozaar] 50 mg PO DAILY 08/18/13 05/18/17 Modafinil 100 mg PO DAILY 08/18/13 05/18/17 Potassium Chloride [K-Dur] 40 meq PO ONCE 08/18/13 05/18/17 lamoTRIgine [LaMICtal] 200 mg PO QPM 08/18/13 05/19/17 Calcium Carb/D3/Magnesium/Zinc 1 tab PO QPM 02/10/14 05/18/17 [Ryan Mag Zinc + D3 Tablet] Cyanocobalamin (Vitamin B-12) 1,000 mcg PO QPM 02/10/14 05/18/17 [B-12] Fluticasone [Flonase] 1 sprays MIKEY DAILY PRN 02/10/14 05/18/17 Glucosamine Sulfate Dipot Chlr 1,500 mg PO DAILY 02/10/14 05/18/17 [Glucosamine] Multivitamin [Multivitamins] 1 each PO QPM 02/10/14 05/18/17 [place]-3 Fatty Acids/Fish Oil 1,000 mg PO DAILY 02/10/14 05/18/17 [[place] 3 1,000 mg Softgel] Ubidecarenone [Co Q-10] 50 mg PO QPM 02/10/14 05/18/17 Albuterol Sulfate 1 puffs INH DAILY PRN 04/23/16 05/19/17 Cholecalciferol (Vitamin D3) 1 tab PO DAILY 04/23/16 05/18/17 [Vitamin D3] Naproxen Sodium [Aleve] 1 tab PO DAILY PRN 04/23/16 05/18/17 Pantoprazole [Protonix inj] 80 mg PO DAILY 04/23/16 05/18/17 Rosuvastatin Calcium [Crestor] 1 tab PO QPM 04/23/16 05/18/17 Cyclobenzaprine [Flexeril] 10 mg PO TID PRN 05/18/17 05/18/17 Ropinirole HCl 4 mg PO DAILY 05/18/17 05/18/17 oxyCODONE ER [OxyCONTIN] 5 mg PO TID 05/18/17 05/19/17 Ciprofloxacin HCl [Cipro] 500 mg PO BID #19 tablet 12/08/17 - Allergies Allergies/Adverse Reactions: Allergies Allergy/AdvReac Type Severity Reaction Status Date / Time No Known Drug Allergies Allergy Verified 12/31/17 21:28 - Social History Does the pt smoke?: No Smoking Status: Never smoker Does the pt drink ETOH?: No Does the pt have substance abuse?: No - Immunizations Immunizations are current?: Yes PD ED PE NORMAL - Vitals Vital signs reviewed: Yes - General General: Alert and oriented X 3 - HEENT HEENT: Moist mucous membranes - Derm Derm: Warm and dry - Neuro Neuro: Alert and oriented X 3 - Psych Psych: Normal mood, Normal affect PD ED PE EXPANDED - Extremities RODRÍGUEZ UE/Hands Visual: 1 - abrasion (superficial lacerations, abrasions. NVI. no tendon injury.) Results - Vitals Vitals: Vital Signs - 24 hr 12/31/17 21:24 Temperature 36.6 C Heart Rate 81 Respiratory 16 Rate Blood Pressure 139/88 H O2 Saturation 97 Oxygen O2 Source Room air Procedures - Laceration (location) R 3rd and 4th digits Length in cm: 1.5 Wound type: Curved, Flap Neurovascular status: Sensory intact, Motor intact, Vascular intact Tendon involvement: Tendon intact. No: Tendon Injury Wound Preparation: Irrigated copiously NS Skin layer closure: Dermabond Other: Patient tolerated well, No complications, Neurovascular intact, Tetanus booster given (tdap) Complexity: Simple PD MEDICAL DECISION MAKING - ED course Complexity details: considered differential, d/w patient ED course: Wounds are repaired. Tdap given. Patient tolerated well. Warnings of infection and instructions on wound care given at bedside. Also counseled on how to minimize scarring. Patient counseled regarding signs and symptoms for which I believe and urgent re-evaluation would be necessary. Patient with good understanding of and agreement to plan and is comfortable going home at this time This document was made in part using voice recognition software. While efforts are made to proofread this document, sound alike and grammatical errors may occur. - Sepsis Event Vital Signs: Vital Signs - 24 hr 12/31/17 21:24 Temperature 36.6 C Heart Rate 81 Respiratory 16 Rate Blood Pressure 139/88 H O2 Saturation 97 Oxygen O2 Source Room air Departure - Departure Disposition: 01 Home, Self Care Clinical Impression: Finger laceration Qualifiers: Encounter type: initial encounter Finger: unspecified finger Damage to nail status: without damage Foreign body presence: without foreign body Laterality: right Qualified Code(s): S61.219A - Laceration without foreign body of unspecified finger without damage to nail, initial encounter Condition: Good Instructions: ED Laceration Hand Follow-Up: Jax Palencia MD [Primary Care Provider] - Within 1 week (for wound check) Comments: Return if you worsen. Keep the wound clean. Wear the splint for the next 3-4 days. Return especially for redness, swelling or drainage from the wound. Discharge Date/Time: 12/31/17 22:02
== END 2017-12-31 22:02 | disposition home or self-care (01) ==
LOC: ED 21:20
DX: S61.219A Laceration without foreign body of unspecified finger without damage to nail, initial encounter (principal); W26.8XXA Contact with other sharp object(s), not elsewhere classified, initial encounter; Y92.009 Unspecified place in unspecified non-institutional (private) residence as the place of occurrence of the external cause; Z23 Encounter for immunization; I10 Essential (primary) hypertension; E78.00 Pure hypercholesterolemia, unspecified; I25.10 Atherosclerotic heart disease of native coronary artery without angina pectoris; I49.9 Cardiac arrhythmia, unspecified; G47.30 Sleep apnea, unspecified; K21.9 Gastro-esophageal reflux disease without esophagitis; Z86.010 Personal history of colon polyps; Z87.442 Personal history of urinary calculi; M79.7 Fibromyalgia; Z95.1 Presence of aortocoronary bypass graft; Z79.82 Long term (current) use of aspirin
CPT/HCPCS: 12001; 90471; 99283

== ENCOUNTER 2018-02-23 10:18 | Emergency (ER) | payer MEDICARE, OTHER ==
[2018-02-23] MEDS ORDERED: IOPAMIDOL-300 100 ML VIAL ONE (10:48)
--- NOTE | 2018-02-23 10:53 | ED Physician Documentation ---
History of Present Illness - Stated complaint Stated Complaint: COULDN'T SPEAK/LOST MOVEMENT - Chief complaint Chief Complaint: Neuro - Additonal information Additional information: hx from pt 68 male hx CAD and HTN no afbi, no valvular issues, no blood thinners, no prior CVA or TIA awoke and was baseline answered phone at 9 AM - was holding phone and speaking then developed R sided weakness and aphasia sx lasted 5 min then completely resolved no numbness no vision change no loss of hearing no NUNEZ or neck pain no other recent illness Review of Systems Constitutional: denies: Fever, Chills Cardiac: denies: Chest pain / pressure Respiratory: denies: Dyspnea, Cough GI: denies: Abdominal Pain, Nausea, Vomiting Musculoskeletal: denies: Neck pain Neurologic: reports: Focal weakness, Difficulty speaking. denies: Numbness, Headache, Head injury Endocrine: denies: Easy bruising / bleeding Immunocompromised: denies: Immunocompromised PD PAST MEDICAL HISTORY - Past Medical History Cardiovascular: Hypertension, High cholesterol, Coronary artery disease, Angina, Arrhythmia Respiratory: Sleep apnea, CPAP use Endocrine/Autoimmune: None GI: GERD, Colon polyps, Other : None, Kidney stones HEENT: Other Psych: Depression, ADD/ADHD Musculoskeletal: Fibromyalgia, Chronic back pain Derm: None - Past Surgical History Past Surgical History: Yes General: Colonoscopy, EGD Cardiovascular: CABG HEENT: Tonsil/Adenoidectomy Derm: Skin cancer surgery - Present Medications Home Medications: Ambulatory Orders Medication Instructions Recorded Confirmed Aspirin 81 mg PO BID 08/18/13 05/19/17 Cetirizine [ZyrTEC] 10 mg PO DAILY 08/18/13 05/18/17 FLUoxetine [PROzac] 30 mg PO DAILY 08/18/13 05/18/17 Furosemide 40 mg PO DAILY 08/18/13 05/18/17 Levothyroxine [Synthroid] 100 mcg PO DAILY 08/18/13 05/18/17 Losartan [Cozaar] 50 mg PO DAILY 08/18/13 05/18/17 Modafinil 100 mg PO DAILY 08/18/13 05/18/17 Potassium Chloride [K-Dur] 40 meq PO ONCE 08/18/13 05/18/17 lamoTRIgine [LaMICtal] 200 mg PO QPM 08/18/13 05/19/17 Calcium Carb/D3/Magnesium/Zinc 1 tab PO QPM 02/10/14 05/18/17 [Ryan Mag Zinc + D3 Tablet] Cyanocobalamin (Vitamin B-12) 1,000 mcg PO QPM 02/10/14 05/18/17 [B-12] Fluticasone [Flonase] 1 sprays MIKEY DAILY PRN 02/10/14 05/18/17 Glucosamine Sulfate Dipot Chlr 1,500 mg PO DAILY 02/10/14 05/18/17 [Glucosamine] Multivitamin [Multivitamins] 1 each PO QPM 02/10/14 05/18/17 [place]-3 Fatty Acids/Fish Oil 1,000 mg PO DAILY 02/10/14 05/18/17 [[place] 3 1,000 mg Softgel] Ubidecarenone [Co Q-10] 50 mg PO QPM 02/10/14 05/18/17 Albuterol Sulfate 1 puffs INH DAILY PRN 04/23/16 05/19/17 Cholecalciferol (Vitamin D3) 1 tab PO DAILY 04/23/16 05/18/17 [Vitamin D3] Naproxen Sodium [Aleve] 1 tab PO DAILY PRN 04/23/16 05/18/17 Pantoprazole [Protonix inj] 80 mg PO DAILY 04/23/16 05/18/17 Rosuvastatin Calcium [Crestor] 1 tab PO QPM 04/23/16 05/18/17 Cyclobenzaprine [Flexeril] 10 mg PO TID PRN 05/18/17 05/18/17 Ropinirole HCl 4 mg PO DAILY 05/18/17 05/18/17 oxyCODONE ER [OxyCONTIN] 5 mg PO TID 05/18/17 05/19/17 Ciprofloxacin HCl [Cipro] 500 mg PO BID #19 tablet 12/08/17 - Allergies Allergies/Adverse Reactions: Allergies Allergy/AdvReac Type Severity Reaction Status Date / Time No Known Drug Allergies Allergy Verified 02/23/18 10:39 - Social History Does the pt smoke?: No Smoking Status: Never smoker Does the pt drink ETOH?: No Does the pt have substance abuse?: No - Immunizations Immunizations are current?: Yes - POLST Patient has POLST: No PD ED PE NORMAL - Vitals Vital signs reviewed: Yes - General General: Alert and oriented X 3 - HEENT HEENT: Atraumatic, PERRL, EOMI - Neck Neck: Supple, no meningeal sign - Cardiac Cardiac: RRR - Respiratory Respiratory: No respiratory distress, Clear bilaterally - Abdomen Abdomen: Soft, Non tender - Neuro Neuro: Alert and oriented X 3, installation & maintenance executive 2-12 intact, No motor deficit, No sensory deficit, Normal speech Eye Opening: Spontaneous Motor: Obeys Commands Verbal: Oriented GCS Score: 15 Results - Vitals Vitals: Vital Signs - 24 hr 02/23/18 02/23/18 02/23/18 10:25 11:04 12:44 Temperature 36.2 C L Heart Rate 69 71 73 Respiratory 20 14 16 Rate Blood Pressure 117/96 H 117/96 H 145/97 H O2 Saturation 95 98 97 02/23/18 14:15 Temperature Heart Rate 80 Respiratory 16 Rate Blood Pressure 127/101 H O2 Saturation 94 Oxygen O2 Source Room air - EKG (time done) 1034 Rate: Rate (enter#) (67) Rhythm: NSR Intervals: Normal AK Ischemia: Non specific changes - Tele (time rhythm occurred) 1420 Telemetry / rhythm strip: Other (nsr) - Labs Labs: Laboratory Tests 02/23/18 02/23/18 02/23/18 10:51 10:51 10:51 WBC 4.6 L RBC 4.41 L Hgb 13.9 L Hct 39.6 L MCV 89.8 MCH 31.6 H MCHC 35.2 RDW 14.2 Plt Count 118 L MPV 9.4 Neut # (Auto) 2.8 Lymph # (Auto) 1.3 L Sch[place] # (Auto) 0.3 Eos # (Auto) 0.3 Baso # (Auto) 0.0 Absolute Nucleated RBC 0.00 Nucleated RBC % 0.0 PT 12.0 INR 1.1 APTT 30.4 Sodium 138 Potassium 3.4 L Chloride 104 Carbon Dioxide 27 Anion Gap 7.0 BUN 13 Creatinine 0.7 Estimated GFR (MDRD) 112 Glucose 171 H Calcium 8.9 - Rads (name of study) CTH Radiology: See rad report (no acute mass shift bleed infarct, possible L maxillary mass) CTA head Radiology: See rad report (no acute) CTA neck Radiology: See rad report (no acute) PD MEDICAL DECISION MAKING - ED course ED course: 68 male with TIA NSR neg CTH neg CTA head and neck ABCD2 score 4 will d/w neuro d/w [place] neuro powertrain control systems engineer given neg extensive ED wup feels may dc pt rec continue asa not change to or add plavix echo - near future outpt since pt is NSR and pt just so happend to have nneuro appt next week for vertigo so can follow up then with all this work up already done and resulted spoke to Dr Kaba powertrain control systems engineer for [facility] and she will expeditie echo and i also told her about the maxillary sinus mass needing work up BP up - pt will go hoem and take his usual meds that he has not yet taken today - Sepsis Event Vital Signs: Vital Signs - 24 hr 02/23/18 02/23/18 02/23/18 10:25 11:04 12:44 Temperature 36.2 C L Heart Rate 69 71 73 Respiratory 20 14 16 Rate Blood Pressure 117/96 H 117/96 H 145/97 H O2 Saturation 95 98 97 02/23/18 14:15 Temperature Heart Rate 80 Respiratory 16 Rate Blood Pressure 127/101 H O2 Saturation 94 Oxygen O2 Source Room air Departure - Departure Disposition: 01 Home, Self Care Clinical Impression: TIA (transient ischemic attack) Condition: Good Instructions: ED Transient Ischemic Attack Follow-Up: Jax Palencia MD [Primary Care Provider] - Comments: The CT of you head did not show any strokes tumors or bleeding - but here is some sort of abnormal mass 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 He says you should keep taking your aspirin And he would like you to get an echocardiogram (ultrasound of your heart ) and I spoke to Dr Kaba covering for Dr Palencia and she will arrange this test - call the office for the time and date And then you should take all your information with you to the neurology appointment (labs, EKG, CT and angiogram results as well as the echo that will happen later this week) If at any time you have more stroke like symptoms, come straight back to the ER right away NIHSS - Time Time: 10:50 - Level of Consciousness Level of consciousness: (0) Alert, Keenly responsive LOC Questions: (0) Answers both Q's correct LOC Commands: (0) Performs both correctly - Gaze Best Gaze: (0) Normal - Visual Visual: (0) No loss - Facial Palsy Facial Palsy: (0) Normal, symmetrical movement - Motor Arms (both separate) Motor Arm (right): (0) No drift Motor Arm (left): (0) No drift - Motor Legs (both separate) Motor Leg (right): (0) No drift Motor Leg (left): (0) No drift - Limb Ataxia Limb Ataxia: (0) Absent - Sensory Sensory: (0) Normal - Best Language Best Language: (0) No aphasia - Dysarthria Dysarthria: (0) Normal - Extinction and Inattention (formally neg Extinction and inattention: (0) No abnormality - Total Score/Results Total Score/Result: 0
[2018-02-23 11:00] LABS: BASOPHILS % (AUTO) 0.4 %; EOSINOPHILS # (AUTO) 0.3 10^3/uL (0.0-0.7); EOSINOPHILS % (AUTO) 5.7 %; HGB - HEMOGLOBIN 13.9 g/dL (14.0-18.0); LYMPHOCYTES # (AUTO) 1.3 10^3/uL (1.5-3.5); LYMPHOCYTES % (AUTO) 27.4 %; MEAN CORPUSCULAR HEMOGLOBIN 31.6 pg (27.0-31.0); MEAN CORPUSCULAR HGB CONC 35.2 g/dL (32.0-36.0); MEAN CORPUSCULAR VOLUME 89.8 fL (80.0-94.0); MEAN PLATELET VOLUME 9.4 fL (7.4-11.4); MONOCYTES # (AUTO) 0.3 10^3/uL (0.0-1.0); MONOCYTES % (AUTO) 6.7 %; NEUTROPHILS # (AUTO) 2.8 10^3/uL (1.5-6.6); NEUTROPHILS % (AUTO) 59.8 %; PLT - PLATELET COUNT 118 10^3/uL (130-450); RED BLOOD COUNT 4.41 10^6/uL (4.70-6.10); RED CELL DISTRIBUTION WIDTH 14.2 % (12.0-15.0); WHITE BLOOD COUNT 4.6 x10^3/uL (4.8-10.8)
[2018-02-23 11:06] LABS: INR 1.1 (0.8-1.2)
[2018-02-23 11:08] LABS: CALCIUM 8.9 mg/dL (8.5-10.3); CREATININE 0.7 mg/dL (0.6-1.2)
[2018-02-23] MEDS ORDERED: IOPAMIDOL-300 100 ML VIAL IVP ONE (11:48)
--- NOTE | 2018-02-23 12:26 | CT Report ---
Reason: TIA R weak aphasia Procedure Date: 02/23/2018 Accession Number: [id number] / [id number] Procedure: CT - Head W/O CPT Code: FULL RESULT: EXAM: CT HEAD EXAM DATE: 02/23/2018 11:55 AM. CLINICAL HISTORY: TIA, right weak, aphasia. COMPARISON: None. TECHNIQUE: Multiaxial CT images were obtained from the foramen magnum to the vertex. Reformats: Sagittal and coronal. IV contrast: None. In accordance with CT protocol optimization, one or more of the following dose reduction techniques were utilized for this exam: automated exposure control, adjustment of mA and/or KV based on patient size, or use of iterative reconstructive technique. FINDINGS: Parenchyma: No intraparenchymal hemorrhage. No evidence of mass, midline shift, or CT findings of infarction. Contreras-white differentiation is distinct. Extraaxial Spaces: Normal for age. No subdural or epidural collections identified. Ventricles: Normal in size and position. Sinuses and Orbits: Partially imaged on the most caudal slice is a right maxillary and possibly left maxillary sinus osseous mass, incompletely characterized. The orbits and mastoids are unremarkable. Bones: Bones outside of the sinuses show no fracture or calvarial defect. Other: None. IMPRESSION: No evidence of intracranial bleed or acute trauma. Incompletely imaged and characterized right maxillary sinus and possibly left maxillary sinus calcified mass. Further characterization by dedicated CT sinus on a routine outpatient basis is recommended. RADIA
--- NOTE | 2018-02-23 13:00 | CT Report ---
Reason: TIA R sided weakness aphasia Procedure Date: 02/23/2018 Accession Number: [id number] / [id number] Procedure: CT - Head Angio CPT Code: FULL RESULT: EXAM: CT ANGIOGRAM HEAD. CT SCAN OF THE HEAD WITH CONTRAST. EXAM DATE: 02/23/2018 11:55 AM CLINICAL HISTORY: TIA, right-sided weakness, aphasia. COMPARISON: HEAD W/O 02/23/2018 11:39 AM NECK ANGIO 02/23/2018 11:39 AM. TECHNIQUE: - CT Scan Head: Using a multidetector scanner, axial images were acquired from the foramen magnum to the skull vertex following contrast administration. - CT Angiogram: Using a multidetector scanner, high-resolution axial images were acquired from the skull base through vertex following rapid infusion of intravenous contrast. Reformats: Coronal MIP reformats were reconstructed. Nascet criteria used for stenosis measurement. IV Contrast: 100 cc Isovue-300. In accordance with CT protocol optimization, one or more of the following dose reduction techniques were utilized for this exam: automated exposure control, adjustment of mA and/or KV based on patient size, or use of iterative reconstructive technique. FINDINGS: NON-CONTRAST HEAD: (See report of noncontrast CT scan of the head performed same time.) POST-CONTRAST HEAD: No abnormal enhancement. CT ANGIOGRAM HEAD: RIGHT: Internal Carotid artery: No evidence of dissection. No evidence of aneurysm along the intracranial ICA. Anterior Cerebral Artery: Patent without significant stenosis, aneurysm, or vascular malformation. Middle Cerebral Artery: Patent without significant stenosis, aneurysm, or vascular malformation. Posterior Cerebral Artery: Patent without significant stenosis, aneurysm, or vascular malformation. Posterior Communicating Artery: Not well visualized. Vertebral Artery: Patent without significant stenosis. No evidence of dissection. LEFT: Internal Carotid artery: No evidence of dissection. No evidence of aneurysm along the intracranial ICA. Anterior Cerebral Artery: Patent without significant stenosis, aneurysm, or vascular malformation. Middle Cerebral Artery: Patent without significant stenosis, aneurysm, or vascular malformation. Posterior Cerebral Artery: Patent without significant stenosis, aneurysm, or vascular malformation. origin is noted as continuation of the P-comm. Posterior Communicating Artery: Patent. No aneurysm. Vertebral Artery: Patent without significant stenosis. No evidence of dissection. CENTRAL: Anterior Communicating Artery: Patent. No aneurysm. Basilar Artery: Patent without significant stenosis. No aneurysm. Note is made of mild bulbous appearance at the basilar tip especially at origin of multiple left superior cerebellar arteries. No focal aneurysm is seen. The basilar artery terminates as the right TRACTOR OPERATOR. DURAL VENOUS SINUSES AND MAJOR CENTRAL VEINS: Patent. IMPRESSION: CT HEAD POSTCONTRAST: (See report of noncontrast CT scan of the head performed same time.) 1. No abnormal intracranial enhancement CTA HEAD: 1. Unremarkable CTA of the head. No significant vascular stenosis, dissection, or aneurysm. 2. Note is made of origin of the left TRACTOR OPERATOR as continuation of the P-comm. RADIA
--- NOTE | 2018-02-23 13:47 | CT Report ---
Reason: TIA R weakness aphasia Procedure Date: 02/23/2018 Accession Number: [id number] / [id number] Procedure: CT - Neck Angio CPT Code: FULL RESULT: EXAM: CT ANGIOGRAM NECK EXAM DATE: 02/23/2018 11:55 AM. CLINICAL HISTORY: 68-year-old male. TIA R weakness aphasia. COMPARISON: CTA of the head obtained concurrently TECHNIQUE: Routine axial helical imaging was performed from the skull base through the aortic arch. Reconstructions: Routine multiplanar 3D MIP reconstructions. IV Contrast: 100 cc Isovue-370. Evaluation of arterial stenosis is based on a NASCET method of measurement. In accordance with CT protocol optimization, one or more of the following dose reduction techniques were utilized for this exam: automated exposure control, adjustment of mA and/or KV based on patient size, or use of iterative reconstructive technique. FINDINGS: Right Carotid: The common carotid, internal carotid, and external carotid arteries are widely patent. No dissection, significant atherosclerotic plaque, or calcification identified. Left Carotid: The common carotid, internal carotid, and external carotid arteries are widely patent. No dissection, significant atherosclerotic plaque, or calcification identified. Vertebrals: The vertebrobasilar system shows no stenoses. Intracranial Circulation: Concurrently obtained CTA of the head has been dictated separately. Other: The visualized lung apices are clear. Status post prior midline sternotomy with sternotomy wires. Moderate multilevel degenerative spondylosis of the visualized spine, no acute fracture or malalignment. The visualized soft tissues of the neck demonstrate no acute abnormality. IMPRESSION: 1. Normal neck CT angiogram. No hemodynamically significant stenoses. 2. Concurrently obtained CTA of the head has been dictated separately. RADIA
[2018-02-23 14:15] VITALS: BP 127/101
== END 2018-02-23 14:40 | disposition home or self-care (01) ==
LOC: ED 10:18
DX: G45.9 Transient cerebral ischemic attack, unspecified (principal); I25.10 Atherosclerotic heart disease of native coronary artery without angina pectoris; I10 Essential (primary) hypertension; Z95.1 Presence of aortocoronary bypass graft; Z79.82 Long term (current) use of aspirin
CPT/HCPCS: 36415; 70450; 70496; 70498; 80048; 85025; 85610; 85730; 93005; 99284; Q9967

== ENCOUNTER 2018-02-28 12:03 | Outpatient (CLI) | payer MEDICARE, OTHER | END 2018-02-28 12:04 | disposition home or self-care (01) | LOC: DI 12:03 | PROVIDERS: ATTEND Family Medicine | DX: G45.9 Transient cerebral ischemic attack, unspecified (principal); I10 Essential (primary) hypertension; I51.7 Cardiomegaly | CPT/HCPCS: 93306 ==

== ENCOUNTER 2018-03-19 09:25 | Outpatient (CLI) | payer MEDICARE, OTHER ==
[2018-03-19 14:44] LABS: BASOPHILS % (AUTO) 0.5 %; EOSINOPHILS # (AUTO) 0.2 10^3/uL (0.0-0.7); EOSINOPHILS % (AUTO) 5.1 %; HGB - HEMOGLOBIN 13.5 g/dL (14.0-18.0); LYMPHOCYTES # (AUTO) 1.3 10^3/uL (1.5-3.5); MEAN CORPUSCULAR HEMOGLOBIN 31.4 pg (27.0-31.0); MEAN CORPUSCULAR HGB CONC 34.8 g/dL (32.0-36.0); MEAN CORPUSCULAR VOLUME 90.2 fL (80.0-94.0); MEAN PLATELET VOLUME 9.7 fL (7.4-11.4); MONOCYTES # (AUTO) 0.3 10^3/uL (0.0-1.0); MONOCYTES % (AUTO) 6.5 %; NEUTROPHILS # (AUTO) 2.9 10^3/uL (1.5-6.6); NEUTROPHILS % (AUTO) 60.9 %; PLT - PLATELET COUNT 127 10^3/uL (130-450); RED CELL DISTRIBUTION WIDTH 14.7 % (12.0-15.0); WHITE BLOOD COUNT 4.7 x10^3/uL (4.8-10.8)
[2018-03-19 15:11] LABS: INR 1.1 (0.8-1.2); PT - PROTHROMBIN TIME 12.2 secs (9.9-12.6)
[2018-03-19 15:49] LABS: THYROID STIMULATING HORMONE 6.37 uIU/mL (0.34-5.60)
[2018-03-19 15:58] LABS: ALBUMIN 4.4 g/dL (3.2-5.5); ALBUMIN/GLOBULIN RATIO 1.7 (1.0-2.2); ALKALINE PHOSPHATASE 27 IU/L (42-121); ALT ALANINE AMINOTRANSFERASE 32 IU/L (10-60); AST ASPARTATE AMINOTRANSFERASE 37 IU/L (10-42); BILIRUBIN,TOTAL 0.6 mg/dL (0.2-1.0); BUN - BLOOD UREA NITROGEN 25 mg/dL (6-20); CALCIUM 9.3 mg/dL (8.5-10.3); CARBON DIOXIDE - CO2 28 mmol/L (21-32); CHLORIDE 103 mmol/L (101-111); CHOL/HDL RATIO 3.6 (<5.0); CHOLESTEROL 105 mg/dL; CREATININE 0.9 mg/dL (0.6-1.2); GFR - MDRD 84 (>89); GLUCOSE 90 mg/dL (70-100); HDL CHOLESTEROL 29 mg/dL; LDL CHOLESTEROL,CALCULATED 38 mg/dL; LDL/HDL RATIO 1.3 (<3.6); SODIUM 140 mmol/L (135-145); VLDL CHOLESTEROL 38 mg/dL
[2018-03-19 16:19] LABS: HB2 TOTAL 14.1 g/dL; HEMOGLOBIN A1C 0.57 g/dL; HEMOGLOBIN A1C % 5.9 % (4.6-6.2)
[2018-03-19 17:25] LABS: FREE T4 (FREE THYROXINE) 0.75 ng/dL (0.58-1.64)
== END 2018-03-19 09:26 | disposition home or self-care (01) ==
LOC: LAB.WCP 09:25
PROVIDERS: ATTEND Family Medicine
DX: R73.01 Impaired fasting glucose (principal); I25.10 Atherosclerotic heart disease of native coronary artery without angina pectoris; E78.5 Hyperlipidemia, unspecified; I10 Essential (primary) hypertension; E03.9 Hypothyroidism, unspecified
CPT/HCPCS: 36415; 80053; 80061; 83036; 83721; 84439; 84443; 85025; 85610; 85730

== ENCOUNTER 2018-11-25 10:52 | Outpatient (CLI) | payer MEDICARE, OTHER | END 2018-11-25 10:53 | disposition home or self-care (01) | LOC: NS 10:52 | PROVIDERS: ATTEND Family Medicine | DX: Z71.3 Dietary counseling and surveillance (principal); N20.0 Calculus of kidney; E66.01 Morbid (severe) obesity due to excess calories; Z68.41 Body mass index [BMI] 40.0-44.9, adult | CPT/HCPCS: 97802 ==

== ENCOUNTER 2019-03-19 09:57 | Emergency (ER) | payer MEDICARE, OTHER ==
--- NOTE | 2019-03-19 12:06 | CT Report ---
Reason: fell forward onto head, on plavix Procedure Date: 03/19/2019 Accession Number: [id number] / [id number] Procedure: CT - HEAD WO CPT Code: FULL RESULT: EXAM: CT HEAD EXAM DATE: 03/19/2019 11:28 AM. CLINICAL HISTORY: Acute pain due to trauma. COMPARISON: HEAD ANGIO 02/23/2018 11:39 AM. TECHNIQUE: Multiaxial CT images were obtained from the foramen magnum to the vertex. Reformats: Sagittal and coronal. IV contrast: None. In accordance with CT protocol optimization, one or more of the following dose reduction techniques were utilized for this exam: automated exposure control, adjustment of mA and/or KV based on patient size, or use of iterative reconstructive technique. FINDINGS: Parenchyma: No intraparenchymal hemorrhage. No evidence of mass, midline shift, or CT findings of infarction. Contreras-white differentiation is distinct. Extraaxial Spaces: Normal for age. No subdural or epidural collections identified. Ventricles: Normal in size and position. Sinuses and Orbits: Imaged paranasal sinuses, orbits, and mastoids show no significant abnormality. Bones: No evidence of fracture or calvarial defect. Other: None. IMPRESSION: Normal head CT. RADIA
--- NOTE | 2019-03-19 12:29 | CT Report ---
Reason: Fall onto head, neck pain, radiating down L arm Procedure Date: 03/19/2019 Accession Number: [id number] / [id number] Procedure: CT - CERVICAL SPINE WO CPT Code: FULL RESULT: EXAM: CT CERVICAL SPINE WITHOUT CONTRAST DATE: 03/19/2019 11:28 AM. HISTORY: Fall onto head. Neck pain, radiating down left arm. COMPARISONS: HEAD ANGIO 02/23/2018 11:39 AM NECK ANGIO 02/23/2018 11:39 AM. TECHNIQUE: Thin-section axial images were acquired of the cervical spine without contrast. Post-processing: Coronal and sagittal reformats. Other: None. In accordance with CT protocol optimization, one or more of the following dose reduction techniques were utilized for this exam: automated exposure control, adjustment of mA and/or KV based on patient size, or use of iterative reconstructive technique. FINDINGS: Alignment: No scoliosis or spondylolisthesis. Bones: No fracture or bone lesion. Interspace Levels/Facets: C1-C2: Anterior degenerative changes. C2-C3: Unremarkable. C3-C4: Disk space narrowing with right disk/osteophyte protrusion creating right foraminal narrowing. C4-C5: Mild disk space narrowing with spurring. C5-C6: Advanced disk space narrowing with spurring. C6-C7: Advanced disk space narrowing with spurring. C7-T1: Disk space narrowing with spurring. Musculature: Normal. No fatty atrophy. Other: The paravertebral and prevertebral soft tissues are unremarkable. The lung apices are clear. IMPRESSION: No acute cervical spine abnormalities. RADIA
--- NOTE | 2019-03-19 12:45 | ED Physician Documentation ---
PD HPI NECK PAIN - Stated complaint Stated Complaint: BACK PX - Chief complaint Chief Complaint: Trauma Hd/Nk - History obtained from History obtained from: Patient, Family - History of Present Illness Timing - onset: Today (just prior to arrival) Timing - duration: Hours (2) Timing - details: Abrupt onset Severity Comments: moderate Location: Left, Other (lateral neck pain) Quality: Pain, Aching. No: Spasm, Sharp, Tearing, Throbbing, Dull, Similar to prior episodes Associated symptoms: No: Fever, Weakness, Numbness, Incontinent of urine, Unable to urinate, Hematuria, Incontinent of stool Improves with: Rest Worsened by: Movement (turning left) Contributing factors: Anticoagulated (patient is on plavix), Other (patient fell from his chair hitting his head forward on ferdinand ground) Similar symptoms before: Has not had sx before Recently seen: Not recently seen - Treatment prior to arrival Treatment prior to arrival: none - Additional information Additional information: He did hit his head. Reports neck pain radiates down his Left arm. Review of Systems Ten Systems: 10 systems reviewed and negative Constitutional: denies: Fever Eyes: denies: Decreased vision, Photophobia Cardiac: reports: Reviewed and negative Respiratory: reports: Reviewed and negative GI: reports: Reviewed and negative. denies: Nausea, Vomiting Skin: reports: Other (small abrasion to L forehead) Musculoskeletal: reports: Neck pain, Extremity pain. denies: Back pain, Joint pain, Extremity swelling, Joint swelling Neurologic: reports: Head injury. denies: Generalized weakness, Focal weakness, Numbness, Difficulty speaking, Near syncope, Syncope, Seizure, Confused, Altered mental status, Headache, LOC PD PAST MEDICAL HISTORY - Past Medical History Past Medical History: Yes Cardiovascular: Hypertension, High cholesterol, Coronary artery disease, Angina, Arrhythmia Respiratory: Sleep apnea, CPAP use Endocrine/Autoimmune: None GI: GERD, Colon polyps, Other : None, Kidney stones HEENT: Other Psych: Depression, ADD/ADHD Musculoskeletal: Fibromyalgia, Chronic back pain Derm: None - Past Surgical History Past Surgical History: Yes General: Colonoscopy, EGD Cardiovascular: CABG HEENT: Tonsil/Adenoidectomy Derm: Skin cancer surgery - Present Medications Home Medications: Ambulatory Orders Medication Instructions Recorded Confirmed Cetirizine [ZyrTEC] 10 mg PO DAILY 08/18/13 03/19/19 FLUoxetine [PROzac] 30 mg PO DAILY 08/18/13 03/19/19 Furosemide 20 mg PO DAILY 08/18/13 05/18/17 Levothyroxine [Synthroid] 100 mcg PO DAILY 08/18/13 03/19/19 Losartan [Cozaar] 50 mg PO DAILY 08/18/13 03/19/19 Potassium Chloride [K-Dur] 20 meq PO BID 08/18/13 05/18/17 lamoTRIgine [LaMICtal] 200 mg PO QPM 08/18/13 03/19/19 Cyanocobalamin (Vitamin B-12) 1,000 mcg PO QPM 02/10/14 03/19/19 [B-12] Fluticasone [Flonase] 1 sprays MIKEY DAILY PRN 02/10/14 03/19/19 Glucosamine Sulfate Dipot Chlr 1,500 mg PO DAILY 02/10/14 03/19/19 [Glucosamine] Multivitamin [Multivitamins] 1 each PO QPM 02/10/14 03/19/19 Redfox-3 Fatty Acids/Fish Oil 1,000 mg PO DAILY 02/10/14 03/19/19 [Redfox 3 1,000 mg Softgel] Ubidecarenone [Co Q-10] 50 mg PO QPM 02/10/14 03/19/19 Albuterol Sulfate 1 puffs INH DAILY PRN 04/23/16 03/19/19 Cholecalciferol (Vitamin D3) 1 tab PO DAILY 04/23/16 03/19/19 [Vitamin D3] Pantoprazole [Protonix inj] 40 mg PO BID 04/23/16 03/19/19 Cyclobenzaprine [Flexeril] 10 mg PO TID PRN 05/18/17 03/19/19 Ropinirole HCl 2 mg PO BID 05/18/17 03/19/19 oxyCODONE ER [OxyCONTIN] 10 mg PO TID PRN 05/18/17 03/19/19 Clopidogrel [Plavix] 75 mg PO DAILY 03/19/19 03/19/19 Gabapentin 3 cap PO BID 03/19/19 03/19/19 traZODone [Desyrel] 50 mg PO DAILY PM 03/19/19 03/19/19 - Allergies Allergies/Adverse Reactions: Allergies Allergy/AdvReac Type Severity Reaction Status Date / Time No Known Drug Allergies Allergy Verified 03/19/19 10:14 - Social History Does the pt smoke?: No Smoking Status: Never smoker Does the pt drink ETOH?: No Does the pt have substance abuse?: No - Immunizations Immunizations are current?: Yes - POLST Patient has POLST: No PD ED PE NORMAL - Vitals Vital signs reviewed: Yes - General General: Alert and oriented X 3, No acute distress, Well developed/nourished - HEENT HEENT: Atraumatic, EOMI, Pharynx benign - Neck Neck: Supple, no meningeal sign, No JVD - Cardiac Cardiac: RRR, Other (no chest wall tenderness) - Respiratory Respiratory: No respiratory distress - Abdomen Abdomen: Soft, Non tender, Non distended - Male Male : Deferred - Rectal Rectal: Deferred - Derm Derm: Normal color, Warm and dry, No rash - Extremities Extremities: No deformity, No tenderness to palpate, Normal ROM s pain, No edema, No calf tenderness / cord - Neuro Neuro: Alert and oriented X 3, No motor deficit, No sensory deficit Eye Opening: Spontaneous Motor: Obeys Commands Verbal: Oriented GCS Score: 15 - Psych Psych: Normal mood, Normal affect PD ED PE EXPANDED - Neck Neck: Supple w/out meningeal sx, Soft tissue TTP (left lateral posterior neck tenderness at the paraspinals. full ROM but pain when turning left ). No: Bony TTP, Limited ROM Results - Vitals Vitals: Vital Signs - 24 hr 03/19/19 03/19/19 10:10 12:56 Temperature 36.9 C 36.4 C L Heart Rate 58 L 63 Respiratory 16 16 Rate Blood Pressure 126/80 121/80 O2 Saturation 97 95 Oxygen O2 Source Room air - Rads (name of study) CT head Radiology: Final report received, See rad report (negative) CT C Spine Radiology: Final report received, See rad report (negative ) PD MEDICAL DECISION MAKING - ED course Complexity details: reviewed results, re-evaluated patient, considered differential, d/w patient, d/w family ED course: ddx- whiplash, C spine injury, ICH, closed head injury, concussion 69 y/o M with minor trip and fall from a chair onto his head. Had no LOC. This was a mechanical fall thus no syncop. He is on plavix and has small forehead abrasion thus obtained CT head. This was negative. He also has L lateral neck pain with radiation down his L arm, CT C spine also neg. Offered pt analgesics but he declined. He is stable for discharge with outpt f/u Departure - Departure Disposition: 01 Home, Self Care Clinical Impression: Whiplash Qualifiers: Encounter type: initial encounter Qualified Code(s): S13.4XXA - Sprain of ligaments of cervical spine, initial encounter Closed head injury Qualifiers: Encounter type: initial encounter Qualified Code(s): S09.90XA - Unspecified injury of head, initial encounter Condition: Stable Record reviewed to determine appropriate education?: Yes Instructions: ED Sprain Strain Neck Follow-Up: Jax Palencia MD [Primary Care Provider] - As Needed () Comments: Your CT head and Cervical spine results were negative for any injury to your vertebrae or brain. This is likely a whiplash injury from your fall. You should follow up with your chiropractor for your neck pain or your regular doctor if symptoms persist.
[2019-03-19 12:57] VITALS: BP 121/80
== END 2019-03-19 12:57 | disposition home or self-care (01) ==
LOC: ED 09:57
DX: S13.4XXA Sprain of ligaments of cervical spine, initial encounter (principal); S09.90XA Unspecified injury of head, initial encounter; S00.81XA Abrasion of other part of head, initial encounter; W07.XXXA Fall from chair, initial encounter; I10 Essential (primary) hypertension; E78.00 Pure hypercholesterolemia, unspecified; I25.119 Atherosclerotic heart disease of native coronary artery with unspecified angina pectoris; I49.9 Cardiac arrhythmia, unspecified; G47.30 Sleep apnea, unspecified; K21.9 Gastro-esophageal reflux disease without esophagitis; F90.9 Attention-deficit hyperactivity disorder, unspecified type; F32.9 Major depressive disorder, single episode, unspecified; M79.7 Fibromyalgia; G89.29 Other chronic pain; M54.9 Dorsalgia, unspecified; Z95.1 Presence of aortocoronary bypass graft; Z85.828 Personal history of other malignant neoplasm of skin; Z79.51 Long term (current) use of inhaled steroids; Z79.02 Long term (current) use of antithrombotics/antiplatelets; Z79.899 Other long term (current) drug therapy
CPT/HCPCS: 70450; 72125; 99284

== ENCOUNTER 2019-04-14 08:00 | Outpatient (CLI) | payer MEDICARE, OTHER ==
[2019-04-14 19:10] LABS: BASOPHILS % (AUTO) 0.5 %; EOSINOPHILS # (AUTO) 0.1 10^3/uL (0.0-0.7); EOSINOPHILS % (AUTO) 3.6 %; HGB - HEMOGLOBIN 13.8 g/dL (14.0-18.0); LYMPHOCYTES # (AUTO) 1.4 10^3/uL (1.5-3.5); LYMPHOCYTES % (AUTO) 35.2 %; MEAN CORPUSCULAR HEMOGLOBIN 29.3 pg (27.0-31.0); MEAN CORPUSCULAR HGB CONC 30.6 g/dL (32.0-36.0); MEAN CORPUSCULAR VOLUME 95.8 fL (80.0-94.0); MEAN PLATELET VOLUME 12.2 fL (7.4-11.4); MONOCYTES # (AUTO) 0.3 10^3/uL (0.0-1.0); MONOCYTES % (AUTO) 8.4 %; NEUTROPHILS # (AUTO) 2.1 10^3/uL (1.5-6.6); NEUTROPHILS % (AUTO) 52.3 %; PLT - PLATELET COUNT 135 10^3/uL (130-450); RED BLOOD COUNT 4.71 10^6/uL (4.70-6.10); RED CELL DISTRIBUTION WIDTH 14.7 % (12.0-15.0); WHITE BLOOD COUNT 3.9 x10^3/uL (4.8-10.8)
[2019-04-14 19:31] LABS: HB2 TOTAL 13.9 g/dL; HEMOGLOBIN A1C 0.55 g/dL; HEMOGLOBIN A1C % 5.8 % (4.6-6.2)
[2019-04-14 19:37] LABS: ALBUMIN 4.3 g/dL (3.2-5.5); ALBUMIN/GLOBULIN RATIO 1.7 (1.0-2.2); BILIRUBIN,TOTAL 0.7 mg/dL (0.2-1.0); CALCIUM 9.7 mg/dL (8.5-10.3); MAGNESIUM 2.4 mg/dL (1.7-2.8); TOTAL PROTEIN 6.9 g/dL (6.7-8.2)
[2019-04-21 17:36] LABS: HDL LARGE 3915 nmol/L (3382-9376); LDL PARTICLE NUMBER 791 nmol/L (732-2035); LDL PATTERN B Pattern (A); LDL PEAK SIZE 205.7 Angstrom (> OR = 217.4); LDL SMALL 135 nmol/L (85-473)
== END 2019-04-14 23:59 | disposition home or self-care (01) ==
LOC: LAB.WCP 08:00
PROVIDERS: ATTEND Family Medicine
DX: I25.10 Atherosclerotic heart disease of native coronary artery without angina pectoris (principal); R73.01 Impaired fasting glucose; E78.5 Hyperlipidemia, unspecified; Z12.5 Encounter for screening for malignant neoplasm of prostate; E03.9 Hypothyroidism, unspecified; E78.2 Mixed hyperlipidemia; I10 Essential (primary) hypertension
CPT/HCPCS: 36415; 80053; 81599; 83036; 83704; 83735; 84443; 85025; G0103; 80061; 83721; 84153

== ENCOUNTER 2019-04-29 08:43 | Outpatient (CLI) | payer MEDICARE, OTHER ==
[2019-04-29] MEDS ORDERED: SINCALIDE 5 MCG VIAL ONE (09:57)
[2019-04-29] MEDS ORDERED: SINCALIDE IV ONE (13:55)
[2019-04-29] MEDS ORDERED: SODIUM CHLORIDE 0.9% IV ONE (13:55)
--- NOTE | 2019-04-30 07:33 | Nuclear Medicine Report ---
Reason: BILIARY COLIC Procedure Date: 04/29/2019 Accession Number: [id number] / [id number] Procedure: NM - Hepatobiliary HIDA w/ Rx CPT Code: Final Report FULL RESULT: EXAM: HEPATOBILIARY SCAN WITH CCK/KINEVAC ADMINISTRATION EXAM DATE: 04/29/2019 01:52 PM. CLINICAL HISTORY: BILIARY COLIC. COMPARISON: US ABDOMEN LIMITED 04/15/2019 12:30 PM. TECHNIQUE: Following the intravenous administration of 5.1 mCi of Tc99m Mebrofenin, a hepatobiliary scan was done centered on the liver and gallbladder in multiple sequential images and projections. Following the intravenous administration of 2.3 mcg of CCK/ Kinevac over the course of approximately 60 minutes, dynamic imaging was done and the gallbladder ejection fraction was calculated. FINDINGS: Normal extraction of tracer from the blood pool indicating normal hepatocellular function. The liver size and shape is grossly within normal limits. Appearance of tracer in the biliary tree as early as 11 minutes, within normal limits. Appearance of tracer in the gallbladder as early as 30 minutes, within normal limits, with good progression of filling throughout the remainder of the initial hour. Appearance of tracer in the small bowel as early as 16 minutes, within normal limits. With CCK administration, the gallbladder demonstrates an effective contraction. The gallbladder ejection fraction is calculated to be 75%, well above the lower limit of normal of 38% for a 60-minute injection. The patient did not report symptoms after CCK administration. No evidence of enteric reflux into the stomach. No significant collection of tracer remaining in the common bile duct by the end of the study. IMPRESSION: 1. Patent cystic duct. 2. Patent common bile duct. 3. Negative for acute or chronic cholecystitis. 4. No enterogastric bile reflux. 5. Gallbladder ejection fraction of 75%. [facility]
== END 2019-04-29 08:44 | disposition home or self-care (01) ==
LOC: DI 08:43
PROVIDERS: ATTEND Family Medicine
DX: K80.50 Calculus of bile duct without cholangitis or cholecystitis without obstruction (principal)
CPT/HCPCS: 78227; J7040

== ENCOUNTER 2019-06-27 13:15 | Emergency (ER) | payer MEDICARE, OTHER ==
[2019-06-27] MEDS ORDERED: HYDROmorphone 1 MG/ML CARPUJECT IVP STA (13:49)
[2019-06-27] MEDS ORDERED: SODIUM CHLORIDE 0.9% 1,000 ML IV ONE (13:49)
[2019-06-27] MEDS ORDERED: ONDANSETRON 4 MG/2 ML VIAL IVP STA (13:49)
--- NOTE | 2019-06-27 13:51 | ED Physician Documentation ---
History of Present Illness - Stated complaint Stated Complaint: ABD PX, NAUSEA - Chief complaint Chief Complaint: General - History obtained from History obtained from: Patient - History of Present Illness Timing: Last night (69-year-old gentleman with history of renal colic status post multiple kidney stone removals by Dr. Baez, coronary bypass and 3 weeks out from a left knee replacement presents with sudden onset right flank pain starting last night radiating into the chest and right shoulder associated with sweats and shortness of breath. It was about an hour after eating. He wonders if he might have a gallstone, but previously a HIDA scan done a few months ago here was negative. No fevers. He does have burning dysuria and frequency.) Review of Systems Ten Systems: 10 systems reviewed and negative Constitutional: reports: Chills, Fatigue, Sweats Nose: denies: Rhinorrhea / runny nose Cardiac: reports: Chest pain / pressure. denies: Palpitations Respiratory: reports: Dyspnea. denies: Cough GI: reports: Abdominal Pain, Nausea. denies: Vomiting PD PAST MEDICAL HISTORY - Past Medical History Cardiovascular: Hypertension, High cholesterol, Coronary artery disease, Angina, Arrhythmia Respiratory: Sleep apnea, CPAP use Endocrine/Autoimmune: None GI: GERD, Colon polyps, Other : None, Kidney stones HEENT: Other Psych: Depression, ADD/ADHD Musculoskeletal: Fibromyalgia, Chronic back pain Derm: None - Past Surgical History Past Surgical History: Yes General: Colonoscopy, EGD Cardiovascular: CABG HEENT: Tonsil/Adenoidectomy Derm: Skin cancer surgery - Present Medications Home Medications: Ambulatory Orders Medication Instructions Recorded Confirmed Cetirizine [ZyrTEC] 10 mg PO DAILY 08/18/13 03/19/19 FLUoxetine [PROzac] 30 mg PO DAILY 08/18/13 03/19/19 Furosemide 20 mg PO DAILY 08/18/13 05/18/17 Levothyroxine [Synthroid] 100 mcg PO DAILY 08/18/13 03/19/19 Losartan [Cozaar] 50 mg PO DAILY 08/18/13 03/19/19 Potassium Chloride [K-Dur] 20 meq PO BID 08/18/13 05/18/17 lamoTRIgine [LaMICtal] 200 mg PO QPM 08/18/13 03/19/19 Cyanocobalamin (Vitamin B-12) 1,000 mcg PO QPM 02/10/14 03/19/19 [B-12] Fluticasone [Flonase] 1 sprays MIKEY DAILY PRN 02/10/14 03/19/19 Glucosamine Sulfate Dipot Chlr 1,500 mg PO DAILY 02/10/14 03/19/19 [Glucosamine] Multivitamin [Multivitamins] 1 each PO QPM 02/10/14 03/19/19 [place]-3 Fatty Acids/Fish Oil 1,000 mg PO DAILY 02/10/14 03/19/19 [[place] 3 1,000 mg Softgel] Ubidecarenone [Co Q-10] 50 mg PO QPM 02/10/14 03/19/19 Albuterol Sulfate 1 puffs INH DAILY PRN 04/23/16 03/19/19 Cholecalciferol (Vitamin D3) 1 tab PO DAILY 04/23/16 03/19/19 [Vitamin D3] Pantoprazole [Protonix inj] 40 mg PO BID 04/23/16 03/19/19 Cyclobenzaprine [Flexeril] 10 mg PO TID PRN 05/18/17 03/19/19 Ropinirole HCl 2 mg PO BID 05/18/17 03/19/19 oxyCODONE ER [OxyCONTIN] 10 mg PO TID PRN 05/18/17 03/19/19 Clopidogrel [Plavix] 75 mg PO DAILY 03/19/19 03/19/19 Gabapentin 3 cap PO BID 03/19/19 03/19/19 traZODone [Desyrel] 50 mg PO DAILY PM 03/19/19 03/19/19 Hydrocodone/Acetaminophen 1 - 2 each PO Q6H PRN #14 tablet 06/27/19 [Hydrocodon-Acetaminophen 5-325] Levofloxacin [Levaquin] 500 mg PO DAILY #10 tablet 06/27/19 Metoclopramide [Reglan] 10 mg PO Q6H PRN #10 tablet 06/27/19 - Allergies Allergies/Adverse Reactions: Allergies Allergy/AdvReac Type Severity Reaction Status Date / Time No Known Drug Allergies Allergy Verified 03/19/19 10:14 - Social History Does the pt smoke?: No Smoking Status: Never smoker Does the pt drink ETOH?: No Does the pt have substance abuse?: No - Immunizations Immunizations are current?: Yes - POLST Patient has POLST: No PD ED PE NORMAL - Vitals Vital signs reviewed: Yes - General General: Alert and oriented X 3, No acute distress - HEENT HEENT: PERRL, EOMI - Neck Neck: Supple, no meningeal sign, No bony TTP - Cardiac Cardiac: RRR, No murmur - Respiratory Respiratory: No respiratory distress, Clear bilaterally - Abdomen Abdomen: Non tender - Back Back: No CVA TTP, No spinal TTP - Derm Derm: Normal color, Warm and dry - Extremities Extremities: No edema, No calf tenderness / cord - Neuro Neuro: Alert and oriented X 3, Normal speech Results - Vitals Vitals: Vital Signs - 24 hr 06/27/19 13:22 Temperature 37.0 C Heart Rate 104 H Respiratory 16 Rate Blood Pressure 102/67 O2 Saturation 94 Oxygen O2 Source Room air - EKG (time done) 1414 Rate: Rate (enter#) (93) Rhythm: NSR [place]: Normal Intervals: Normal [place] QRS: Normal Ischemia: Non specific changes (Flat inferior T waves) Computer interpretation: Agree with computer - Labs Labs: Laboratory Tests 06/27/19 06/27/19 06/27/19 13:47 13:47 13:47 WBC 9.5 RBC 4.97 Hgb 14.8 Hct 43.8 MCV 88.1 MCH 29.8 MCHC 33.8 RDW 13.2 Plt Count 186 MPV 9.9 Neut # (Auto) 8.2 H Lymph # (Auto) 0.7 L [place] # (Auto) 0.6 Eos # (Auto) 0.0 Baso # (Auto) 0.0 Absolute Nucleated RBC 0.00 Nucleated RBC % 0.0 Sodium 136 Potassium 3.1 L Chloride 99 L Carbon Dioxide 26 Anion Gap 11.0 BUN 18 Creatinine 1.0 Estimated GFR (MDRD) 74 L Glucose 128 H Lactic Acid 1.3 Calcium 9.5 Total Bilirubin 1.3 H AST 26 ALT 23 Alkaline Phosphatase 40 L Troponin I High Sens Total Protein 7.7 Albumin 4.3 Globulin 3.4 Albumin/Globulin Ratio 1.3 Lipase 27 Urine Color Urine Clarity Urine pH Ur Specific [place] Urine Protein Urine Glucose (UA) Urine Ketones Urine Occult Blood Urine Nitrite Urine Bilirubin Urine Urobilinogen Ur Leukocyte Esterase Urine RBC Urine WBC Urine WBC Clumps Ur Squamous Epith Cells Urine Bacteria Ur Microscopic Review Urine Culture Comments 06/27/19 06/27/19 13:47 14:35 WBC RBC Hgb Hct MCV MCH MCHC RDW Plt Count MPV Neut # (Auto) Lymph # (Auto) Garrett # (Auto) Eos # (Auto) Baso # (Auto) Absolute Nucleated RBC Nucleated RBC % Sodium Potassium Chloride Carbon Dioxide Anion Gap BUN Creatinine Estimated GFR (MDRD) Glucose Lactic Acid Calcium Total Bilirubin AST ALT Alkaline Phosphatase Troponin I High Sens 3.7 Total Protein Albumin Globulin Albumin/Globulin Ratio Lipase Urine Color ORANGE Urine Clarity CLEAR Urine pH 7.0 Ur Specific [place] 1.010 Urine Protein Urine Glucose (UA) 100 H Urine Ketones NEGATIVE Urine Occult Blood Urine Nitrite Urine Bilirubin NEGATIVE Urine Urobilinogen Ur Leukocyte Esterase Urine RBC 6-10 H Urine WBC >25 H Urine WBC Clumps PRESENT Ur Squamous Epith Cells RARE Squamous Urine Bacteria Moderate H Ur Microscopic Review INDICATED Urine Culture Comments INDICATED - Rads (name of study) CT pulmonary angiogram and CT of the belly Radiology: EMP read contemporaneously (No PE, thick-walled bladder, bilateral nephrolithiasis without ureteral stone or obstruction) PD MEDICAL DECISION MAKING - ED course ED course: 69-year-old gentleman presents with sudden right flank pain radiating to the chest with shortness of breath last night, he has a history of renal colic. Differential diagnosis includes that, less likely gallbladder disease given negative HIDA scan 2 months ago. Also significant concern for PE given that he is 3 weeks out from a knee replacement. No PE evident on imaging, he does have evidence of urinary tract infection, probably pyelonephritis and cystitis which is treated with levofloxacin, prolonged course given male gender. Feeling almost pain-free after meds here. Departure - Departure Disposition: 01 Home, Self Care Clinical Impression: Pyelonephritis Chest pain Qualifiers: Chest pain type: unspecified Qualified Code(s): R07.9 - Chest pain, unspecified Condition: Good Record reviewed to determine appropriate education?: Yes Instructions: ED Chest Pain NonCardiac, Pyelonephritis Dc Prescriptions: Hydrocodone/Acetaminophen [Hydrocodon-Acetaminophen 5-325] 1 - 2 each PO Q6H PRN #14 tablet PRN Reason: pain Levofloxacin [Levaquin] 500 mg PO DAILY #10 tablet Metoclopramide [Reglan] 10 mg PO Q6H PRN #10 tablet PRN Reason: nausea or headache Comments: Thankfully today your work-up demonstrates only evidence of urinary tract infection for which we are giving you antibiotics. We will culture your urine and call you if a change in antibiotics is necessary but please return immediately if worsening. Follow-up with your doctor in 3 days for recheck.
[2019-06-27 13:58] LABS: BASOPHILS % (AUTO) 0.3 %; EOSINOPHILS % (AUTO) 0.3 %; HGB - HEMOGLOBIN 14.8 g/dL (14.0-18.0); LYMPHOCYTES # (AUTO) 0.7 10^3/uL (1.5-3.5); MEAN CORPUSCULAR HEMOGLOBIN 29.8 pg (27.0-31.0); MEAN CORPUSCULAR HGB CONC 33.8 g/dL (32.0-36.0); MEAN CORPUSCULAR VOLUME 88.1 fL (80.0-94.0); MEAN PLATELET VOLUME 9.9 fL (7.4-11.4); MONOCYTES # (AUTO) 0.6 10^3/uL (0.0-1.0); MONOCYTES % (AUTO) 5.8 %; NEUTROPHILS # (AUTO) 8.2 10^3/uL (1.5-6.6); NEUTROPHILS % (AUTO) 86.3 %; PLT - PLATELET COUNT 186 10^3/uL (130-450); RED BLOOD COUNT 4.97 10^6/uL (4.70-6.10); RED CELL DISTRIBUTION WIDTH 13.2 % (12.0-15.0); WHITE BLOOD COUNT 9.5 x10^3/uL (4.8-10.8)
[2019-06-27 14:16] LABS: ALBUMIN 4.3 g/dL (3.2-5.5); ALBUMIN/GLOBULIN RATIO 1.3 (1.0-2.2); BILIRUBIN,TOTAL 1.3 mg/dL (0.2-1.0); CALCIUM 9.5 mg/dL (8.5-10.3); TOTAL PROTEIN 7.7 g/dL (6.7-8.2)
[2019-06-27] MEDS ORDERED: POTASSIUM CHLORIDE 20 MEQ TABLET PO STA (14:31)
[2019-06-27] MEDS ORDERED: IOVERSOL 320 100 ML VIAL IVP ONE ×2 (14:34→15:32)
[2019-06-27 14:51] LABS: BILIRUBIN,URINE NEGATIVE (NEGATIVE); GLUCOSE, URINE (UA) 100 mg/dL (NEGATIVE); KETONES,URINE (UA) NEGATIVE (NEGATIVE)
[2019-06-27 14:52] LABS: CLARITY,URINE CLEAR (CLEAR)
[2019-06-27 15:17] LABS: BACTERIA,URINE Moderate /HPF (None Seen); SQUAMOUS EPITHELIAL CELL,UR RARE Squamous (<= Few); WBC CLUMPS,URINE PRESENT
--- NOTE | 2019-06-27 15:24 | CT Report ---
Reason: chest pain Procedure Date: 06/27/2019 Accession Number: [id number] / [id number] Procedure: CT - ANGIO CHEST W/WO CPT Code: Final Report FULL RESULT: EXAM: CT ANGIOGRAM CHEST EXAM DATE: 06/27/2019 02:54 PM. CLINICAL HISTORY: Chest pain. COMPARISON: None. TECHNIQUE: Routine helical imaging was performed through the chest in the pulmonary arterial phase. IV Contrast: OPTI 320 100ML. Reconstructions: Sagittal, coronal, and 3D MIP. In accordance with CT protocol optimization, one or more of the following dose reduction techniques were utilized for this exam: automated exposure control, adjustment of mA and/or KV based on patient size, or use of iterative reconstructive technique. FINDINGS: Pulmonary Arteries: Diagnostic quality: Adequate through the segmental arteries. No evidence for acute or chronic pulmonary emboli. RV/LV is within normal limits. There is no interventricular septal bowing. There is no reflux of contrast material in the IVC. Lungs/Pleura: Mild bronchiectasis. Minimal dependent atelectasis. No acute infiltrate, consolidation, effusion, or pneumothorax. Mediastinum: Normal heart size. No pericardial effusion. Scattered peripheral pericardial calcifications. Coronary artery calcifications. No lymphadenopathy. Thoracic Aorta: Unremarkable. Upper Abdomen: Hepatic cysts or hemangiomata. Other: Status post median sternotomy. IMPRESSION: Negative for pulmonary embolism at this time. Unremarkable aorta. RADIA
--- NOTE | 2019-06-27 15:28 | CT Report ---
Reason: FLANK PAIN. Procedure Date: 06/27/2019 Accession Number: [id number] / [id number] Procedure: CT - Abdomen/Pelvis W CPT Code: Final Report FULL RESULT: EXAM: CT ABDOMEN AND PELVIS EXAM DATE: 06/27/2019 02:54 PM. CLINICAL HISTORY: Bilateral flank pain. COMPARISONS: IVP 11/03/2017 12:[address] ABDOMEN, PELVIS W/CONTRAST 04/15/2019 1:20 PM. TECHNIQUE: Routine helical CT imaging was performed through the abdomen and pelvis. IV contrast: 100 cc of Optiray 320. Enteric contrast: No. Reconstructions: Coronal and sagittal. In accordance with CT protocol optimization, one or more of the following dose reduction techniques were utilized for this exam: automated exposure control, adjustment of mA and/or KV based on patient size, or use of iterative reconstructive technique. FINDINGS: Lung Bases: Unremarkable. Liver: Stable hepatic cysts. No new abnormality. Gallbladder/Bile Ducts: Unremarkable. Spleen: Normal. Pancreas: Normal. Adrenal Glands: Normal. Kidneys: Stable nonobstructing 8 mm right intrarenal calcification and 2 mm left intrarenal calcification. Stable small cortical cysts. No ureteral stone or obstruction on either side. Peritoneal Cavity/Bowel: Normal. No free fluid, free air or adenopathy. No masses or acute inflammatory process. Nonvisualized appendix. Pelvic Organs: Unremarkable prostate. Thick-walled bladder. Vasculature: No aortic aneurysm. Mild atherosclerotic calcification. Bones: Stable mild S-shaped scoliosis and multilevel degenerative disk disease. Other: Fat-containing right inguinal hernia and penile prosthesis again noted. IMPRESSION: 1. Nephrolithiasis bilaterally, with no ureteral stones or obstruction. 2. Thick-walled bladder, which may represent cystitis. RADIA
[2019-06-27] MEDS ORDERED: levoFLOXacin 250 MG TABLET PO STA (15:35)
[2019-06-27 15:53] VITALS: BP 127/66
== END 2019-06-27 15:54 | disposition home or self-care (01) ==
LOC: ED 13:15
DX: N12 Tubulo-interstitial nephritis, not specified as acute or chronic (principal); R07.9 Chest pain, unspecified; N20.0 Calculus of kidney; I10 Essential (primary) hypertension; I25.10 Atherosclerotic heart disease of native coronary artery without angina pectoris; Z95.1 Presence of aortocoronary bypass graft; Z79.02 Long term (current) use of antithrombotics/antiplatelets; Z96.652 Presence of left artificial knee joint
CPT/HCPCS: 36415; 71275; 74177; 80053; 81001; 83605; 83690; 84484; 85025; 87086; 87181; 93005; 99284; A9270; J1170; Q9967; 81003

== ENCOUNTER 2020-04-07 21:27 | Emergency (ER) | payer MEDICARE, OTHER ==
[2020-04-07] MEDS ORDERED: BUFFERED LIDOCAINE 10 ML SYRINGE SUBQ STA (21:38)
--- NOTE | 2020-04-07 21:39 | ED Physician Documentation ---
PD HPI UPPER EXT INJURY - Stated complaint Stated Complaint: FINGER LAC - Chief complaint Chief Complaint: Laceration - History obtained from History obtained from: Patient - History of Present Illness Location: Left (70-year-old gentleman up-to-date on tetanus cut his left middle finger on flashing while working on his son's house a couple of hours ago.) Review of Systems Constitutional: reports: Reviewed and negative Eyes: reports: Reviewed and negative Ears: reports: Reviewed and negative Nose: reports: Reviewed and negative PD PAST MEDICAL HISTORY - Past Medical History Cardiovascular: Hypertension, High cholesterol, Coronary artery disease, Angina, Arrhythmia Respiratory: Sleep apnea, CPAP use Endocrine/Autoimmune: None GI: GERD, Colon polyps, Other : None, Kidney stones HEENT: Other Psych: Depression, ADD/ADHD Musculoskeletal: Fibromyalgia, Chronic back pain Derm: None - Past Surgical History Past Surgical History: Yes General: Colonoscopy, EGD Cardiovascular: CABG HEENT: Tonsil/Adenoidectomy Derm: Skin cancer surgery - Present Medications Home Medications: Ambulatory Orders Medication Instructions Recorded Confirmed Cetirizine [ZyrTEC] 10 mg PO DAILY 08/18/13 03/19/19 FLUoxetine [PROzac] 30 mg PO DAILY 08/18/13 03/19/19 Furosemide 20 mg PO DAILY 08/18/13 05/18/17 Levothyroxine [Synthroid] 100 mcg PO DAILY 08/18/13 03/19/19 Losartan [Cozaar] 50 mg PO DAILY 08/18/13 03/19/19 Potassium Chloride [K-Dur] 20 meq PO BID 08/18/13 05/18/17 lamoTRIgine [LaMICtal] 200 mg PO QPM 08/18/13 03/19/19 Cyanocobalamin (Vitamin B-12) 1,000 mcg PO QPM 02/10/14 03/19/19 [B-12] Fluticasone [Flonase] 1 sprays MIKEY DAILY PRN 02/10/14 03/19/19 Glucosamine Sulfate Dipot Chlr 1,500 mg PO DAILY 02/10/14 03/19/19 [Glucosamine] Multivitamin [Multivitamins] 1 each PO QPM 02/10/14 03/19/19 [place]-3 Fatty Acids/Fish Oil 1,000 mg PO DAILY 02/10/14 03/19/19 [[place] 3 1,000 mg Softgel] Ubidecarenone [Co Q-10] 50 mg PO QPM 02/10/14 03/19/19 Albuterol Sulfate 1 puffs INH DAILY PRN 04/23/16 03/19/19 Cholecalciferol (Vitamin D3) 1 tab PO DAILY 04/23/16 03/19/19 [Vitamin D3] Pantoprazole [Protonix inj] 40 mg PO BID 04/23/16 03/19/19 Cyclobenzaprine [Flexeril] 10 mg PO TID PRN 05/18/17 03/19/19 Ropinirole HCl 2 mg PO BID 05/18/17 03/19/19 oxyCODONE ER [OxyCONTIN] 10 mg PO TID PRN 05/18/17 03/19/19 Clopidogrel [Plavix] 75 mg PO DAILY 03/19/19 03/19/19 Gabapentin 3 cap PO BID 03/19/19 03/19/19 traZODone [Desyrel] 50 mg PO DAILY PM 03/19/19 03/19/19 Hydrocodone/Acetaminophen 1 - 2 each PO Q6H PRN #14 tablet 06/27/19 [Hydrocodon-Acetaminophen 5-325] Levofloxacin [Levaquin] 500 mg PO DAILY #10 tablet 06/27/19 Metoclopramide [Reglan] 10 mg PO Q6H PRN #10 tablet 06/27/19 - Allergies Allergies/Adverse Reactions: Allergies Allergy/AdvReac Type Severity Reaction Status Date / Time No Known Drug Allergies Allergy Verified 04/07/20 21:33 - Social History Does the pt smoke?: No Smoking Status: Never smoker Does the pt drink ETOH?: No Does the pt have substance abuse?: No - Immunizations Immunizations are current?: Yes - POLST Patient has POLST: No PD ED PE NORMAL - Vitals Vital signs reviewed: Yes - General General: Alert and oriented X 3, No acute distress - Extremities Extremities: Other (There is a 6 mm laceration on the ulnar side of the dorsal surface of the PIP of the left middle finger without distal neurovascular compromise.) - Neuro Neuro: Alert and oriented X 3, Normal speech Results - Vitals Vitals: Vital Signs - 24 hr 04/07/20 21:30 Temperature 36.5 C Heart Rate 74 Respiratory 16 Rate Blood Pressure 137/74 H O2 Saturation 100 Oxygen O2 Source Room air Procedures - Laceration (location) Left 3rd finger Length in cm: 0.5 Wound type: Linear, Superficial Anesthesia: Lidocaine 1%, With bicarb Wound Preparation: Irrigated copiously NS Skin layer closure: Nylon, Interrupted, Size #-0 - enter number (4-0), Sutures - enter # (1) Other: Patient tolerated well, No complications, Neurovascular intact Complexity: Simple Departure - Departure Disposition: 01 Home, Self Care Clinical Impression: Finger laceration Qualifiers: Encounter type: initial encounter Finger: middle finger Damage to nail status: without damage Foreign body presence: without foreign body Laterality: left Qualified Code(s): S61.213A - Laceration without foreign body of left middle finger without damage to nail, initial encounter Condition: Good Record reviewed to determine appropriate education?: Yes Instructions: ED Laceration Hand Comments: Come back for any signs of infection which would include: Redness, swelling, drainage, increased pain, or fevers. You can wash it soap and water. Keep it covered and moist with bacitracin ointment which is available over the counter; avoid neosporin. Follow-up with your physician in 10-14 days for suture removal.
[2020-04-07 22:06] VITALS: BP 129/71
== END 2020-04-07 22:00 | disposition home or self-care (01) ==
LOC: ED 21:27
DX: S61.213A Laceration without foreign body of left middle finger without damage to nail, initial encounter (principal); W26.8XXA Contact with other sharp object(s), not elsewhere classified, initial encounter; Y93.H3 Activity, building and construction; Y92.018 Other place in single-family (private) house as the place of occurrence of the external cause; I10 Essential (primary) hypertension; Z79.02 Long term (current) use of antithrombotics/antiplatelets
CPT/HCPCS: 12001; 12011; 99282; 99283

== ENCOUNTER 2020-06-13 08:00 | Outpatient (CLI) | payer MEDICARE, OTHER ==
[2020-06-13 19:46] LABS: FREE T4 (FREE THYROXINE) 0.9 ng/dL (0.58-1.64)
== END 2020-06-13 23:59 | disposition home or self-care (01) ==
LOC: LAB.WCP 08:00
PROVIDERS: ATTEND Physician Assistant Medical
DX: E03.9 Hypothyroidism, unspecified (principal)
CPT/HCPCS: 36415; 84439; 84443

== ENCOUNTER 2020-08-01 07:00 | Outpatient (CLI) | payer MEDICARE, OTHER ==
--- NOTE | 2020-08-01 14:36 | XRAY Report ---
PROCEDURE: Chest 2 View X-Ray INDICATIONS: COUGH TECHNIQUE: 2 view(s) of the chest. COMPARISON: None. FINDINGS: Surgical changes and devices: None. Lungs and pleura: No pleural effusions or pneumothorax. Lungs are clear. The patient is status pos t median sternotomy. Mediastinum: Mediastinal contours are normal. Heart size is normal. Bones and chest wall: No suspicious bony abnormalities. Soft tissues appear unremarkable. IMPRESSION: No acute cardiopulmonary abnormality. Reviewed by: Frank Leon on 08/01/2020 2:35 PM PST Approved by: Frank Leon on 08/01/2020 2:35 PM [facility] Station ID: [id number]
== END 2020-08-01 23:59 | disposition home or self-care (01) ==
LOC: DI.WCP 07:00
PROVIDERS: ATTEND Physician Assistant Medical
DX: R05 Cough (principal)

== ENCOUNTER 2020-08-14 08:00 | Outpatient (CLI) | payer MEDICARE, OTHER ==
[2020-08-15 12:29] LABS: HEPATITIS C ANTIBODY NON-REACTIVE (NON-REACTIVE)
== END 2020-08-14 23:59 | disposition home or self-care (01) ==
LOC: LAB.WCP 08:00
PROVIDERS: ATTEND Physician Assistant Medical
DX: Z01.84 Encounter for antibody response examination (principal); E03.9 Hypothyroidism, unspecified
CPT/HCPCS: 36415; 84443; 86803

== ENCOUNTER 2020-09-17 15:02 | Outpatient (CLI) | payer MEDICARE, OTHER ==
[2020-09-17 18:39] LABS: ALBUMIN 4.2 g/dL (3.2-5.5); ALBUMIN/GLOBULIN RATIO 1.6 (1.0-2.2); ALKALINE PHOSPHATASE 28 IU/L (42-121); ALT ALANINE AMINOTRANSFERASE 21 IU/L (10-60); AST ASPARTATE AMINOTRANSFERASE 22 IU/L (10-42); BILIRUBIN,TOTAL 0.7 mg/dL (0.2-1.0); BUN - BLOOD UREA NITROGEN 9 mg/dL (6-20); CALCIUM 9.1 mg/dL (8.5-10.3); CARBON DIOXIDE - CO2 26 mmol/L (21-32); CHLORIDE 102 mmol/L (101-111); CHOL/HDL RATIO 3.4 (<5.0); CHOLESTEROL 124 mg/dL; CREATININE 0.8 mg/dL (0.6-1.2); GFR - MDRD 96 (>89); GLUCOSE 126 mg/dL (70-100); HDL CHOLESTEROL 36 mg/dL; LDL CHOLESTEROL,CALCULATED 48 mg/dL; LDL/HDL RATIO 1.3 (<3.6); POTASSIUM 3.8 mmol/L (3.5-5.0); SODIUM 136 mmol/L (135-145); TOTAL PROTEIN 6.9 g/dL (6.7-8.2); TRIGLYCERIDES 201 mg/dL; VLDL CHOLESTEROL 40 mg/dL
[2020-09-17 20:30] LABS: ESTIMATED AVERAGE GLUCOSE 126 mg/dL (70-100)
== END 2020-09-17 23:59 | disposition home or self-care (01) ==
LOC: LAB.WCP 15:02
PROVIDERS: ATTEND Physician Assistant Medical
DX: E78.5 Hyperlipidemia, unspecified (principal); R73.01 Impaired fasting glucose
CPT/HCPCS: 36415; 80053; 80061; 83036; 83721

== ENCOUNTER 2020-10-03 07:09 | Day surgery (SDC) | payer MEDICARE, OTHER ==
[2020-10-03] MEDS ORDERED: LACTATED RINGERS 1,000 ML IV ONE ×2 (08:44→10:32)
[2020-10-03] MEDS ORDERED: MIDAZOLAM 2 MG/2 ML VIAL ONE ×2 (09:11→10:16)
[2020-10-03] MEDS ORDERED: fentaNYL 250 MCG/5 ML VIAL ONE (09:11)
[2020-10-03 11:03] VITALS: BP 115/80
== END 2020-10-03 07:10 | disposition home or self-care (01) ==
LOC: SDS 07:09
PROVIDERS: ATTEND Surgery
PROC: 0DJD8ZZ Inspection of Lower Intestinal Tract, Via Natural or Artificial Opening Endoscopic (ICD-10-PCS; principal; 2020-10-03 09:00)
DX: Z12.11 Encounter for screening for malignant neoplasm of colon (principal); K64.8 Other hemorrhoids; I10 Essential (primary) hypertension; Z86.010 Personal history of colon polyps
CPT/HCPCS: G0105; J3010; J7120

== ENCOUNTER 2020-11-28 08:00 | Outpatient (CLI) | payer MEDICARE, OTHER ==
[2020-11-28 18:57] LABS: THYROID STIMULATING HORMONE 2.5 uIU/mL (0.34-5.60)
== END 2020-11-28 23:59 | disposition home or self-care (01) ==
LOC: LAB.WCP 08:00
PROVIDERS: ATTEND Physician Assistant Medical
DX: F33.1 Major depressive disorder, recurrent, moderate (principal); E03.9 Hypothyroidism, unspecified
CPT/HCPCS: 36415; 80175; 84443

== ENCOUNTER 2021-01-14 11:49 | Outpatient (CLI) | payer MEDICARE, OTHER ==
--- NOTE | 2021-01-14 16:54 | XRAY Report ---
PROCEDURE: Shoulder 2 View RT INDICATIONS: R SHOULDER PX TECHNIQUE: 2 views of the shoulder were acquired. COMPARISON: None. FINDINGS: Bones: No fractures or dislocations. No suspicious bony lesions. Visualized ribs appear intact. [place] right acromioclavicular joint osteoarthritis. Large bony excrescences noted along the inferior m argin of the distal right clavicle. Mild right glenohumeral joint osteoarthritis. Soft tissues: No suspicious soft tissue calcifications. IMPRESSION: 1. 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 2. Large bony excrescences involving the inferior margin of the distal right clavicle possibly relate d to remote trauma. Reviewed by: Priya García MD, PhD on 01/14/2021 4:53 PM PDT Approved by: Priya García MD, PhD on 01/14/2021 4:53 PM PDT Station ID: [id number]
== END 2021-01-14 23:59 | disposition home or self-care (01) ==
LOC: DI.N 11:49
PROVIDERS: ATTEND Nurse Practitioner
DX: M19.011 Primary osteoarthritis, right shoulder (principal); R93.6 Abnormal findings on diagnostic imaging of limbs

== ENCOUNTER 2021-03-13 10:33 | Outpatient (CLI) | payer MEDICARE, OTHER ==
[2021-03-13 18:47] LABS: ALBUMIN 4.5 g/dL (3.2-5.5); ALBUMIN/GLOBULIN RATIO 1.7 (1.0-2.2); ALKALINE PHOSPHATASE 26 IU/L (42-121); ALT ALANINE AMINOTRANSFERASE 30 IU/L (10-60); AST ASPARTATE AMINOTRANSFERASE 24 IU/L (10-42); BILIRUBIN,TOTAL 0.8 mg/dL (0.2-1.0); BUN - BLOOD UREA NITROGEN 20 mg/dL (6-20); CARBON DIOXIDE - CO2 31 mmol/L (21-32); CHLORIDE 100 mmol/L (101-111); CHOL/HDL RATIO 3.6 (<5.0); CHOLESTEROL 153 mg/dL; CREATININE 0.9 mg/dL (0.6-1.2); GFR - MDRD 83 (>89); GLUCOSE 160 mg/dL (70-100); HDL CHOLESTEROL 42 mg/dL; LDL CHOLESTEROL,CALCULATED 65 mg/dL; LDL/HDL RATIO 1.5 (<3.6); POTASSIUM 3.8 mmol/L (3.5-5.0); SODIUM 140 mmol/L (135-145); TOTAL PROTEIN 7.2 g/dL (6.7-8.2); TRIGLYCERIDES 231 mg/dL; VLDL CHOLESTEROL 46 mg/dL
[2021-03-13 19:13] LABS: THYROID STIMULATING HORMONE 9.96 uIU/mL (0.34-5.60)
[2021-03-13 19:55] LABS: FREE T4 (FREE THYROXINE) 0.75 ng/dL (0.58-1.64)
[2021-03-13 20:41] LABS: ESTIMATED AVERAGE GLUCOSE 146 mg/dL (70-100); HEMOGLOBIN A1c% 6.7 % (4.27-6.07)
== END 2021-03-13 23:59 | disposition home or self-care (01) ==
LOC: LAB.WCP 10:33
PROVIDERS: ATTEND Physician Assistant Medical
DX: E78.5 Hyperlipidemia, unspecified (principal); R73.01 Impaired fasting glucose; E03.9 Hypothyroidism, unspecified
CPT/HCPCS: 36415; 80053; 80061; 83036; 83721; 84439; 84443

== ENCOUNTER 2021-03-19 08:00 | Outpatient (CLI) | payer MEDICARE, OTHER | END 2021-03-19 23:59 | disposition home or self-care (01) | LOC: LAB.WCP 08:00 | PROVIDERS: ATTEND Physician Assistant Medical | DX: E11.9 Type 2 diabetes mellitus without complications (principal); I25.10 Atherosclerotic heart disease of native coronary artery without angina pectoris; E03.9 Hypothyroidism, unspecified | CPT/HCPCS: 82962 ==

== ENCOUNTER 2021-04-29 14:10 | Outpatient (CLI) | payer MEDICARE, OTHER ==
[2021-04-29 18:37] LABS: CALCIUM 8.9 mg/dL (8.5-10.3); CREATININE 0.9 mg/dL (0.6-1.2); POTASSIUM 3.9 mmol/L (3.5-5.0)
== END 2021-04-29 23:59 | disposition home or self-care (01) ==
LOC: LAB.WCP 14:10
PROVIDERS: ATTEND Specialist
DX: I10 Essential (primary) hypertension (principal)
CPT/HCPCS: 36415; 80048

== ENCOUNTER 2021-07-11 13:29 | Outpatient (CLI) | payer MEDICARE, OTHER ==
[2021-07-11 19:01] LABS: ALBUMIN 4.3 g/dL (3.2-5.5); ALBUMIN/GLOBULIN RATIO 1.4 (1.0-2.2); CALCIUM 9.4 mg/dL (8.5-10.3); POTASSIUM 3.9 mmol/L (3.5-5.0); TOTAL PROTEIN 7.4 g/dL (6.7-8.2)
[2021-07-11 19:13] LABS: THYROID STIMULATING HORMONE 2.41 uIU/mL (0.34-5.60)
[2021-07-11 20:10] LABS: ESTIMATED AVERAGE GLUCOSE 200 mg/dL (70-100); HEMOGLOBIN A1c% 8.6 % (4.27-6.07)
[2021-07-18 21:20] LABS: HDL LARGE 7274 nmol/L (>6729); LDL MEDIUM 125 nmol/L (<215); LDL PARTICLE NUMBER 1190 nmol/L (<1138); LDL PATTERN B Pattern (A); LDL SMALL 181 nmol/L (<142)
== END 2021-07-11 13:30 | disposition home or self-care (01) ==
LOC: LAB.N 13:29
PROVIDERS: ATTEND Physician Assistant Medical
DX: E03.9 Hypothyroidism, unspecified (principal); E11.9 Type 2 diabetes mellitus without complications; E78.00 Pure hypercholesterolemia, unspecified; I10 Essential (primary) hypertension
CPT/HCPCS: 36415; 80048; 80053; 80061; 81599; 83036; 83704; 83735; 84443

== ENCOUNTER 2021-07-11 13:52 | Outpatient (CLI) | payer MEDICARE, OTHER | END 2021-07-11 13:53 | disposition home or self-care (01) | LOC: LAB.N 13:52 | PROVIDERS: ATTEND Specialist | DX: Z53.9 Procedure and treatment not carried out, unspecified reason (principal) ==

== ENCOUNTER 2021-08-08 08:45 | Outpatient (CLI) | payer MEDICARE, OTHER ==
--- NOTE | 2021-08-08 10:16 | Ultrasound Report ---
PROCEDURE: Retroperitoneal INDICATIONS: HEMATURIA TECHNIQUE: Real-time scanning was performed of the kidneys and bladder, with image documentation. COMPARISON: CT abdomen and pelvis with contrast dated 06/27/2019 FINDINGS: Kidneys: Kidneys are normal in size. Left kidney appears to likely have a duplicated collecting syst em. There is no hydronephrosis associated with this. Right kidney measures 12.8 cm long; left kidney measures 14.7 cm long. Right renal cortical thickness is 1.6 cm; left renal cortical thickness is 1. 7 cm. Renal cortical echotexture is normal. No hydronephrosis. The bilateral renal stones seen on t he previous CT are not identified. This does not mean that they are not present.. No suspicious diane d mass lesions. Bladder: Pre-void bladder volume is 254 mL. Post-void residual is 51 mL. Pre-void images demonstra te no intraluminal masses or stones. On pre-void images, a left ureteral jet is noted with color Dop pler interrogation. (Of note, ureteral jets may not be detectable in up to 25% of cases due to insuf ficient differences in specific gravity between ureteral and bladder urine). Miscellaneous: No free pelvic fluid. IMPRESSION: 1. 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 There is no associated hydronephrosis. 2. Normal size kidneys with no hydronephrosis identified. 3. The previously identified bilateral renal stones are not clearly identified by ultrasound. 4. Mild post void residual. Reviewed by: Matt Baltazar MD on 08/08/2021 10:15 AM [facility] Approved by: Matt Baltazar MD on 08/08/2021 10:15 AM PST Station ID: [id number]
== END 2021-08-08 08:46 | disposition home or self-care (01) ==
LOC: DI 08:45
PROVIDERS: ATTEND Internal Medicine Nephrology
DX: R31.9 Hematuria, unspecified (principal)

== ENCOUNTER 2021-11-08 08:00 | Outpatient (CLI) | payer MEDICARE, OTHER ==
--- NOTE | 2021-11-08 14:05 | XRAY Report ---
PROCEDURE: Chest 2 View X-Ray INDICATIONS: ASTHMA EXACERBATION TECHNIQUE: 2 view(s) of the chest. COMPARISON: None. FINDINGS: Surgical changes and devices: Median sternotomy changes. Lungs and pleura: No pleural effusions or pneumothorax. Lungs are clear. Mediastinum: Mediastinal contours are normal. Heart size is normal. Bones and chest wall: No suspicious bony abnormalities. Soft tissues appear unremarkable. IMPRESSION: No acute finding. Reviewed by: Ferdinand Rodríguez MD on 11/08/2021 2:04 PM PDT Approved by: Ferdinand Rodríguez MD on 11/08/2021 2:04 PM PDT Station ID: [id number]
== END 2021-11-08 23:59 | disposition home or self-care (01) ==
LOC: DI.N 08:00
PROVIDERS: ATTEND Physician Assistant Medical
DX: J45.901 Unspecified asthma with (acute) exacerbation (principal)

== ENCOUNTER 2022-04-11 00:19 | Emergency (ER) | payer MEDICARE, OTHER ==
[2022-04-11] MEDS ORDERED: SODIUM CHLORIDE 0.9% 1,000 ML IV STA (00:54)
[2022-04-11 01:01] LABS: BILIRUBIN,URINE NEGATIVE (NEGATIVE); GLUCOSE, URINE (UA) NEGATIVE (NEGATIVE); KETONES,URINE (UA) 15 mg/dL (NEGATIVE); LEUKOCYTE ESTERASE, URINE NEGATIVE (NEGATIVE); NITRITE,URINE NEGATIVE (NEGATIVE); OCCULT BLOOD,URINE SMALL (NEGATIVE); PROTEIN,URINE 30 mg/dL (NEGATIVE); UROBILINOGEN,URINE 2 E.U./dL (NORMAL)
[2022-04-11 01:12] LABS: BACTERIA,URINE Rare /HPF (None Seen); CLARITY,URINE CLEAR (CLEAR); MUCUS,URINE Few Strands; RBC,URINE 0-5 /HPF (0-5); SQUAMOUS EPITHELIAL CELL,UR FEW Squamous (<= Few); WBC,URINE 0-3 /HPF (0-3)
[2022-04-11 01:17] LABS: BASOPHILS % (AUTO) 0.2 %; HCT - HEMATOCRIT 39.1 % (42.0-52.0); HGB - HEMOGLOBIN 12.9 g/dL (14.0-18.0); LYMPHOCYTES # (AUTO) 0.5 10^3/uL (1.5-3.5); LYMPHOCYTES % (AUTO) 8.2 %; MEAN CORPUSCULAR HEMOGLOBIN 29.9 pg (27.0-31.0); MEAN CORPUSCULAR VOLUME 90.5 fL (80.0-94.0); MEAN PLATELET VOLUME 10.4 fL (7.4-11.4); MONOCYTES # (AUTO) 0.4 10^3/uL (0.0-1.0); MONOCYTES % (AUTO) 7.2 %; NEUTROPHILS # (AUTO) 4.9 10^3/uL (1.5-6.6); NEUTROPHILS % (AUTO) 84.1 %; PLT - PLATELET COUNT 113 10^3/uL (130-450); RED BLOOD COUNT 4.32 10^6/uL (4.70-6.10); RED CELL DISTRIBUTION WIDTH 13.1 % (12.0-15.0); WHITE BLOOD COUNT 5.8 x10^3/uL (4.8-10.8)
[2022-04-11] MEDS ORDERED: ACETAMINOPHEN 325 MG TABLET PO STA (01:25)
[2022-04-11 01:33] LABS: ALBUMIN/GLOBULIN RATIO 1.4 (1.0-2.2); BILIRUBIN,TOTAL 2.1 mg/dL (0.2-1.0); CALCIUM 8.8 mg/dL (8.5-10.3); CREATININE 0.8 mg/dL (0.6-1.2); POTASSIUM 3.3 mmol/L (3.5-5.0); TOTAL PROTEIN 6.9 g/dL (6.7-8.2)
[2022-04-11 02:05] LABS: B. PARAPERTUSSIS- RESP PCR PAN NOT DETECTED; B. PERTUSSIS- RESP PCR PANEL NOT DETECTED; C. PNEUMONIAE- RESP PCR PANEL NOT DETECTED; CORONAVIRUS 229E-RESP PCR NOT DETECTED; CORONAVIRUS HKU1-RESP PCR NOT DETECTED; CORONAVIRUS NL63-RESP PCR NOT DETECTED; CORONAVIRUS OC43-RESP PCR NOT DETECTED; HUMAN METAPNEUMOVIRUS NOT DETECTED; INFLUENZA A- RESP PCR PANEL NOT DETECTED; INFLUENZA B - RESP PCR PANEL NOT DETECTED; M. PNEUMONIAE- RESP PCR PANEL NOT DETECTED; PARAINFLUENZA VIRUS 1 NOT DETECTED; PARAINFLUENZA VIRUS 2 NOT DETECTED; PARAINFLUENZA VIRUS 3 NOT DETECTED; PARAINFLUENZA VIRUS 4 NOT DETECTED; RHINOVIRUS/ENTEROVIRUS NOT DETECTED; RSV- RESP PCR PANEL NOT DETECTED; SARS-CoV-2 -RESP PCR PANEL NOT DETECTED
[2022-04-11] MEDS ORDERED: iohexoL-300 100 ML VIAL ONE (02:14)
[2022-04-11] MEDS ORDERED: POTASSIUM CHLORIDE 20 MEQ TABLET PO STA (02:21)
[2022-04-11] MEDS ORDERED: iohexoL-300 100 ML VIAL IVP ONE (02:52)
--- NOTE | 2022-04-11 04:29 | ED Physician Documentation ---
History of Present Illness - Stated complaint Stated Complaint: FEVER/CHILLS - Chief complaint Chief Complaint: General - History obtained from History obtained from: Patient, Family - Additonal information Additional information: The patient comes to the emergency department with his for chief complaint of nausea, decreased appetite, chills and shakes, and body aches. The patient states he is not sure if he has had a fever, because he has not measured. He states he just feels as though he is "come down with something". No dysuria. No back pain that is new. No abdominal pain. No chest pain, shortness of breath, cough, or sore throat. The patient did just get his flu shot yesterday, but states that the symptoms were going on for a couple of days before that. He denies any sick contacts that he knows of. No other complaints at this time. Review of Systems Ten Systems: 10 systems reviewed and negative Constitutional: reports: Chills, Myalgias Eyes: reports: Reviewed and negative Ears: reports: Reviewed and negative Nose: reports: Reviewed and negative Throat: reports: Reviewed and negative Cardiac: reports: Reviewed and negative Respiratory: reports: Reviewed and negative GI: reports: Nausea. denies: Vomiting, Diarrhea : reports: Reviewed and negative. denies: Dysuria Skin: reports: Reviewed and negative Musculoskeletal: reports: Reviewed and negative Neurologic: reports: Reviewed and negative Psychiatric: reports: Reviewed and negative Endocrine: reports: Reviewed and negative Immunocompromised: reports: Reviewed and negative PD PAST MEDICAL HISTORY - Past Medical History Past Medical History: Yes Cardiovascular: Hypertension, High cholesterol, Angina, [place] Respiratory: Sleep apnea, CPAP use Endocrine/Autoimmune: None GI: Other : None HEENT: None Psych: Depression Musculoskeletal: Fibromyalgia, Chronic back pain Derm: None - Past Surgical History Past Surgical History: Yes General: Other Ortho: Arthroscopic surgery Cardiovascular: CABG HEENT: Tonsil/Adenoidectomy Derm: Skin cancer surgery - Present Medications Home Medications: Ambulatory Orders Medication Instructions Recorded Confirmed Cetirizine [ZyrTEC] 10 mg PO DAILY 08/18/13 04/11/22 Furosemide 20 mg PO DAILY 08/18/13 04/11/22 Levothyroxine [Synthroid] 175 mcg PO DAILY 08/18/13 04/11/22 Losartan [Cozaar] 50 mg PO BID 08/18/13 04/11/22 Potassium Chloride [K-Dur] 20 meq PO BID 08/18/13 04/11/22 lamoTRIgine [LaMICtal] 200 mg PO QPM 08/18/13 04/11/22 Cyanocobalamin (Vitamin B-12) 1,000 mcg PO DAILY 02/10/14 04/11/22 [B-12] Fluticasone [Flonase] 1 sprays MIKEY DAILY PRN 02/10/14 04/11/22 Multivitamin [Multivitamins] 1 each PO DAILY 02/10/14 04/11/22 Ubidecarenone [Co Q-10] 100 mg PO DAILY 02/10/14 04/11/22 Cyclobenzaprine [Flexeril] 10 mg PO TID PRN 05/18/17 04/11/22 Ropinirole HCl 6 mg PO BID 05/18/17 04/11/22 Clopidogrel [Plavix] 75 mg PO DAILY 03/19/19 04/11/22 Gabapentin 4 cap PO BID 03/19/19 04/11/22 traZODone [Desyrel] 50 mg PO DAILY 03/19/19 04/11/22 Acetylcysteine [Nac] 600 mg PO DAILY 04/11/22 04/11/22 Albuterol Sulfate [Proair 90 mcg IH PRN PRN 04/11/22 04/11/22 Digihaler] Alpha Lipoic Acid 600 mg PO BID 04/11/22 04/11/22 Calcium Carbonate [Calcium Antacid] 200 mg PO TIDWM 04/11/22 04/11/22 Cholecalciferol (Vitamin D3) 3,000 mcg PO DAILY 04/11/22 04/11/22 [Vitamin D3] Dextroamphetamine/Amphetamine 10 mg PO BID 04/11/22 04/11/22 [Adderall 10 mg Tablet] Duloxetine HCl [Cymbalta] 60 mg PO DAILY 04/11/22 04/11/22 Finasteride [Proscar] 5 mg PO DAILY 04/11/22 04/11/22 Fluticasone 44 Mcg [Flovent] 1 puffs INH PRN PRN 04/11/22 04/11/22 Metformin HCl 1,000 mg PO BID 04/11/22 04/11/22 Metronidazole 1% Gel [Metrogel] 0 gm TOP PRN PRN 04/11/22 04/11/22 Nystatin/Triamcin 0 gm TP PRN PRN 04/11/22 04/11/22 [Nystatin-Triamcinolone Ointm] Ondansetron Odt [Zofran] 4 mg TL Q6H PRN #10 tablet 04/11/22 Pantoprazole [Protonix] 40 mg PO BID 04/11/22 04/11/22 Rosuvastatin Calcium [Crestor] 40 mg PO DAILY PM 04/11/22 04/11/22 Tamsulosin [Flomax] 2 cap PO DAILY PM 04/11/22 04/11/22 modafiniL [Provigil] 200 mg PO BID 04/11/22 04/11/22 - Allergies Allergies/Adverse Reactions: Allergies Allergy/AdvReac Type Severity Reaction Status Date / Time No Known Drug Allergies Allergy Verified 04/11/22 00:30 - Social History Does the pt smoke?: No Smoking Status: Never smoker Does the pt drink ETOH?: No Does the pt have substance abuse?: No - Immunizations Immunizations are current?: Yes - POLST Patient has POLST: No PD ED PE NORMAL - Vitals Vital signs reviewed: Yes - General General: Alert and oriented X 3, No acute distress, Well developed/nourished - HEENT HEENT: Atraumatic, PERRL, EOMI, Moist mucous membranes - Neck Neck: Supple, no meningeal sign - Cardiac Cardiac: RRR, No murmur, Strong equal pulses - Respiratory Respiratory: No respiratory distress, Clear bilaterally - Abdomen Abdomen: Soft, Non tender, Non distended - Derm Derm: Normal color, Warm and dry, No rash - Extremities Extremities: No deformity, No edema - Neuro Neuro: Alert and oriented X 3, dish person 2-12 intact, Normal speech, Other (Grossly intact) - Psych Psych: Normal mood, Normal affect Results - Vitals Vitals: Vital Signs - 24 hr 04/11/22 04/11/22 04/11/22 00:28 01:49 03:00 Temperature 37.9 C 37.5 C Heart Rate 103 H 86 75 Respiratory 18 26 H 18 Rate Blood Pressure 167/80 H 124/79 118/75 O2 Saturation 95 96 95 04/11/22 04:46 Temperature Heart Rate 73 Respiratory 18 Rate Blood Pressure 105/90 H O2 Saturation 95 Oxygen O2 Source Room air - Labs Labs: Laboratory Tests 04/11/22 04/11/22 04/11/22 00:49 00:55 01:07 WBC 5.8 RBC 4.32 L Hgb 12.9 L Hct 39.1 L MCV 90.5 MCH 29.9 MCHC 33.0 RDW 13.1 Plt Count 113 L MPV 10.4 Neut # (Auto) 4.9 Lymph # (Auto) 0.5 L [place] # (Auto) 0.4 Eos # (Auto) 0.0 Baso # (Auto) 0.0 Absolute Nucleated RBC 0.00 Nucleated RBC % 0.0 Sodium Potassium Chloride Carbon Dioxide Anion Gap BUN Creatinine Estimated GFR (MDRD) Glucose Calcium Total Bilirubin AST ALT Alkaline Phosphatase Total Protein Albumin Globulin Albumin/Globulin Ratio Lipase Urine Color YELLOW Urine Clarity CLEAR Urine pH 6.0 Ur Specific [place] 1.015 Urine Protein 30 H Urine Glucose (UA) NEGATIVE Urine Ketones 15 H Urine Occult Blood SMALL H Urine Nitrite NEGATIVE Urine Bilirubin NEGATIVE Urine Urobilinogen 2 H Ur Leukocyte Esterase NEGATIVE Urine RBC 0-5 Urine WBC 0-3 Ur Squamous Epith Cells FEW Squamous Urine Bacteria Rare Urine Mucus Few Strands Ur Microscopic Review INDICATED Urine Culture Comments NOT INDICATED Nasal Adenovirus (PCR) NOT DETECTED Nasal B. parapertussis DNA (PCR) NOT DETECTED Nasal Coronavir 229E PCR NOT DETECTED Nasal Coronavir HKU1 PCR NOT DETECTED Nasal Coronavir NL63 PCR NOT DETECTED Nasal Coronavir OC43 PCR NOT DETECTED Nasal Enterovir/Rhinovir PCR NOT DETECTED Nasal Influenza B PCR NOT DETECTED Nasal Influenza A PCR NOT DETECTED Nasal Parainfluen 1 PCR NOT DETECTED Nasal Parainfluen 2 PCR NOT DETECTED Nasal Parainfluen 3 PCR NOT DETECTED Nasal Parainfluen 4 PCR NOT DETECTED Nasal RSV (PCR) NOT DETECTED Nasal B.pertussis DNA PCR NOT DETECTED Nasal C.pneumoniae (PCR) NOT DETECTED Mikey Human Metapneumo PCR NOT DETECTED Nasal M.pneumoniae (PCR) NOT DETECTED Nasal SARS-CoV-2 (PCR) NOT DETECTED 04/11/22 01:07 WBC RBC Hgb Hct MCV MCH MCHC RDW Plt Count MPV Neut # (Auto) Lymph # (Auto) [place] # (Auto) Eos # (Auto) Baso # (Auto) Absolute Nucleated RBC Nucleated RBC % Sodium 129 L Potassium 3.3 L Chloride 96 L Carbon Dioxide 22 Anion Gap 11.0 BUN 16 Creatinine 0.8 Estimated GFR (MDRD) 95 Glucose 122 H Calcium 8.8 Total Bilirubin 2.1 H AST 98 H ALT 166 H Alkaline Phosphatase 48 Total Protein 6.9 Albumin 4.0 Globulin 2.9 Albumin/Globulin Ratio 1.4 Lipase 23 Urine Color Urine Clarity Urine pH Ur Specific [place] Urine Protein Urine Glucose (UA) Urine Ketones Urine Occult Blood Urine Nitrite Urine Bilirubin Urine Urobilinogen Ur Leukocyte Esterase Urine RBC Urine WBC Ur Squamous Epith Cells Urine Bacteria Urine Mucus Ur Microscopic Review Urine Culture Comments Nasal Adenovirus (PCR) Nasal B. parapertussis DNA (PCR) Nasal Coronavir 229E PCR Nasal Coronavir HKU1 PCR Nasal Coronavir NL63 PCR Nasal Coronavir OC43 PCR Nasal Enterovir/Rhinovir PCR Nasal Influenza B PCR Nasal Influenza A PCR Nasal Parainfluen 1 PCR Nasal Parainfluen 2 PCR Nasal Parainfluen 3 PCR Nasal Parainfluen 4 PCR Nasal RSV (PCR) Nasal B.pertussis DNA PCR Nasal C.pneumoniae (PCR) Mikey Human Metapneumo PCR Nasal M.pneumoniae (PCR) Nasal SARS-CoV-2 (PCR) PD MEDICAL DECISION MAKING - ED course Complexity details: reviewed results, re-evaluated patient, considered differential, d/w patient ED course: The patient was fairly well-appearing, and had very nonspecific symptoms. He was worked up with labs, urinalysis, respiratory PCR panel. His PCR panel and UA were negative. His labs showed very mild hypokalemia at 3.3 And patient was treated for this with a dose of K. Dur 20 mg equivalents. The patient was also found to have a mildly elevated bilirubin, which he had had before but not to the degree it was this visit, and review of records showed his last bilirubin was normal. The patient also had modestly elevated transaminases, which she had never had before on review of records. Since ultrasound was unavailable until 7:00 in the morning, I did send patient for CT scan of the abdomen and pelvis with contrast To get a look at the biliary system. CT showed hepatic cysts but otherwise, no significant fiber in the biliary system. The patient was known to have kidney stones already and these were demonstrated again. There was some dilatation of his left ureter and collecting system without obvious stone, the etiology of which was unclear. I have advised the patient to follow-up for this with his urologist. I did reevaluate the patient who received a liter of IV fluid and Zofran, and he was found to be feeling much better. He ambulated to the bathroom without assistance or difficulty. I felt patient was stable for discharge home. I have provided him with a prescription for Zofran and we have discussed the usual indications for follow-up and return. Departure - Departure Disposition: 01 Home, Self Care Clinical Impression: Viral syndrome, Dehydration, Hypokalemia Condition: Stable Instructions: ED Dehydration, ED Viral Syndrome Prescriptions: Ondansetron Odt [Zofran] 4 mg TL Q6H PRN #10 tablet PRN Reason: Nausea / Vomiting Comments: Overall, your labs looked reasonably good, with the exception of some mild elevations of your liver enzymes. You also had a slightly low potassium, for which you were treated today. Your CT scan, which was done to further evaluate the elevated liver enzymes, showed only benign cysts in the liver but no other problems with your gallbladder or the rest of the liver and its related systems. You do still have kidney stones, though none appear to be passing at this time. You do have some chronic blockage on the left side involving your kidney and the ureter, the tube that drains it. It is not clear what the cause of this is, and you should follow-up with your urologist to determine whether this is a new problem or an existing one. As far as your symptoms that you have been having, no clear-cut cause has been found. Your urinalysis was negative as was your viral panel. It is most likely that you have a viral syndrome involving one of the viruses that we are not able to test for, as there are many going around right now. However, you do have a set of blood cultures pending, and these will show whether there is any bacteria in your blood that needs treatment antibiotics. The blood cultures do not come back for 24 hours, and you will be called at home if they are positive. However, since you have not had a fever and your white blood cell count in your blood is normal, it would be surprising if your blood cultures are positive. Nonetheless, we have checked this to be thorough. Your urine was beginning to become darker again, and you were treated with IV fluids for the dehydration. Please be sure you are drinking about 8 cups of water every day to stay well-hydrated. As far as your nausea, you have been treated for this in the emergency department today, but a prescription for the nausea medicine has also been given to you to help with your symptoms at home. Please follow-up with your primary doctor for further concerns. Discharge Date/Time: 04/11/22 04:46
[2022-04-11 04:46] VITALS: BP 105/90
--- NOTE | 2022-04-11 08:38 | CT Report ---
PROCEDURE: ABDOMEN/PELVIS W INDICATIONS: nausea, elevated LFTs/bili, no pain CONTRAST: 100 ML OMNI 300 TECHNIQUE: After the administration of intravenous contrast, 5 mm thick sections acquired from the diaphragms to the symphysis. 5 mm thick coronal and sagittal reformats were acquired. For radiation dose reducti on, the following was used: automated exposure control, adjustment of mA and/or kV according to virginie ent size. COMPARISON: CT abdomen and pelvis dated 06/27/2019. FINDINGS: Image quality: Excellent. ABDOMEN: Lung bases: Lung bases are clear. Heart size is normal. Solid organs: Liver and spleen are normal in size and enhancement. Low-density left lobe liver lesio ns are stable, consistent with cysts and possible hemangioma. Gallbladder is unremarkable. Biliary s ystem is non dilated. Pancreas enhances normally. No adrenal nodules. Kidneys demonstrate normal s ize and enhancement, without hydronephrosis. There is a 4 mm nonobstructing right lower pole renal st one. 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 Upper pole and lower pole moieties join to form o ne, ureter in the upper pelvis. The left ureter is mildly diffusely dilated with a question of possib le subtle high density within it after which it tapers distally. Cannot exclude a small ureteral tumo r. Peritoneum and bowel: Bowel loops demonstrate normal wall thickness and caliber. No free fluid or a ir. Large fecal load. Nodes and vessels: No retroperitoneal or mesenteric adenopathy by size criteria. Aorta and inferior vena cava are normal in size. Miscellaneous: No ventral hernias. PELVIS: Genitourinary: Bladder wall thickness is normal. Miscellaneous: Large fat-containing right inguinal hernia, unchanged. No inguinal adenopathy. Penile prosthesis. Bones: No suspicious bony lesions. No vertebral body compression fractures. Lumbar degenerative ch francis. IMPRESSION: 1. 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 2. The left ureter is diffusely mildly dilated down to the mid to distal ureter where there is subtle increased density. Then it becomes a normal caliber. Cannot exclude a subtle ureteral malignancy. Th is is not definite. 3. Nonobstructing right renal stone. 4. No evidence of acute abdominal process. 5. Large fecal load. 6. Right inguinal hernia. Comment: Consider CT IVP versus referral to urology as the next step for further evaluation of the le ft ureter Findings are concordant with preliminary interpretation provided by [facility]. Reviewed by: Matt Baltazar MD on 04/11/2022 8:36 AM PDT Approved by: Matt Baltazar MD on 04/11/2022 8:36 AM PDT Station ID: [id number]
== END 2022-04-11 04:46 | disposition home or self-care (01) ==
LOC: ED 00:19
DX: E86.0 Dehydration (principal); E87.6 Hypokalemia; B34.9 Viral infection, unspecified; I10 Essential (primary) hypertension; Z20.822 Contact with and (suspected) exposure to COVID-19
CPT/HCPCS: 36415; 74177; 80053; 81001; 83690; 85025; 87040; 87633; 96360; 99283; 99284; A9270; Q9967; 81003; 87086

== ENCOUNTER 2022-04-13 05:50 | Outpatient (CLI) | payer MEDICARE, OTHER | END 2022-04-13 05:51 | disposition critical access hospital (66) | LOC: EMS 05:50 | DX: M54.9 Dorsalgia, unspecified (principal); R10.10 Upper abdominal pain, unspecified | CPT/HCPCS: A0425; A0427 ==

== ENCOUNTER 2022-04-13 06:50 | Emergency (ER) | payer MEDICARE, OTHER ==
--- NOTE | 2022-04-13 07:03 | ED Physician Documentation ---
History of Present Illness - Stated complaint Stated Complaint: ABD PX/BACK PX - Chief complaint Chief Complaint: Abd Pain - Additonal information Additional information: Patient 72-year-old male presenting to the emergency department with chest and abdominal pain. Past medical significant for hypertension, dyslipidemia, morbid obesity, coronary artery disease, sleep apnea, recurrent kidney stones, chronic back pain, fibromyalgia. Woke at 3 AM this morning,Began to experience right-sided chest pain radiating to the left side of his chest as well as low back painAnd abdomen. Reports that the low back pain feels similar to kidney stone pain he has had in the past. Was seen here 3 days ago, evaluated for 3 days nausea vomiting and shaking chills. Reports that he has had persistent shaking chills since his ED evaluation. Denies fever at home. Denies ongoing nausea, vomiting or diarrhea. Denies known sick contacts. Review of Systems Ten Systems: 10 systems reviewed and negative Constitutional: reports: Chills Eyes: denies: Loss of vision, Photophobia Nose: denies: Rhinorrhea / runny nose Throat: denies: Oral lesions / sores, Sore throat Cardiac: reports: Chest pain / pressure, Palpitations Respiratory: reports: Dyspnea GI: reports: Abdominal Pain, Nausea, Vomiting : denies: Dysuria Skin: denies: Rash Musculoskeletal: reports: Back pain PD PAST MEDICAL HISTORY - Past Medical History Cardiovascular: Hypertension, High cholesterol, Angina, [place] Respiratory: Sleep apnea, CPAP use Endocrine/Autoimmune: None GI: Other : None HEENT: None Psych: Depression Musculoskeletal: Fibromyalgia, Chronic back pain Derm: None - Past Surgical History Past Surgical History: Yes General: Other Ortho: Arthroscopic surgery Cardiovascular: CABG HEENT: Tonsil/Adenoidectomy Derm: Skin cancer surgery - Present Medications Home Medications: Ambulatory Orders Medication Instructions Recorded Confirmed Cetirizine [ZyrTEC] 10 mg PO DAILY 08/18/13 04/13/22 Furosemide 20 mg PO DAILY 08/18/13 04/13/22 Levothyroxine [Synthroid] 175 mcg PO DAILY 08/18/13 04/13/22 Losartan [Cozaar] 50 mg PO BID 08/18/13 04/13/22 Potassium Chloride [K-Dur] 20 meq PO BID 08/18/13 04/13/22 lamoTRIgine [LaMICtal] 200 mg PO QPM 08/18/13 04/13/22 Cyanocobalamin (Vitamin B-12) 1,000 mcg PO DAILY 02/10/14 04/13/22 [B-12] Fluticasone [Flonase] 1 sprays MIKEY DAILY PRN 02/10/14 04/13/22 Multivitamin [Multivitamins] 1 each PO DAILY 02/10/14 04/13/22 Ubidecarenone [Co Q-10] 100 mg PO DAILY 02/10/14 04/13/22 Cyclobenzaprine [Flexeril] 10 mg PO TID PRN 05/18/17 04/13/22 Ropinirole HCl 6 mg PO BID 05/18/17 04/13/22 Clopidogrel [Plavix] 75 mg PO DAILY 03/19/19 04/13/22 Gabapentin 4 cap PO BID 03/19/19 04/13/22 traZODone [Desyrel] 50 mg PO HS 03/19/19 04/13/22 Acetylcysteine [Nac] 600 mg PO DAILY 04/11/22 04/13/22 Albuterol Sulfate [Proair 1 - 2 puffs IH Q4HR PRN 04/11/22 04/13/22 Digihaler] Alpha Lipoic Acid 600 mg PO BID 04/11/22 04/13/22 Calcium Carbonate [Calcium Antacid] 200 mg PO TIDWM 04/11/22 04/13/22 Cholecalciferol (Vitamin D3) 3,000 mcg PO DAILY 04/11/22 04/13/22 [Vitamin D3] Duloxetine HCl [Cymbalta] 60 mg PO DAILY 04/11/22 04/13/22 Finasteride [Proscar] 5 mg PO DAILY 04/11/22 04/13/22 Fluticasone 44 Mcg [Flovent] 1 puffs INH PRN PRN 04/11/22 04/13/22 Metformin HCl 1,000 mg PO BID 04/11/22 04/13/22 Metronidazole 1% Gel [Metrogel] 0 gm TOP PRN PRN 04/11/22 04/13/22 Nystatin/Triamcin 0 gm TP PRN PRN 04/11/22 04/13/22 [Nystatin-Triamcinolone Ointm] Pantoprazole [Protonix] 40 mg PO BID 04/11/22 04/13/22 Rosuvastatin Calcium [Crestor] 40 mg PO DAILY PM 04/11/22 04/13/22 Tamsulosin [Flomax] 2 cap PO DAILY PM 04/11/22 04/13/22 modafiniL [Provigil] 200 mg PO BID 04/11/22 04/13/22 - Allergies Allergies/Adverse Reactions: Allergies Allergy/AdvReac Type Severity Reaction Status Date / Time No Known Drug Allergies Allergy Verified 04/13/22 07:01 - Social History Does the pt smoke?: No Smoking Status: Never smoker Does the pt drink ETOH?: No Does the pt have substance abuse?: No - Immunizations Immunizations are current?: Yes - POLST Patient has POLST: No PD ED PE NORMAL - Vitals Vital signs reviewed: Yes - General General: Alert and oriented X 3, No acute distress, Other (Morbidly obese) - HEENT HEENT: Atraumatic, PERRL, EOMI, Ears normal, Moist mucous membranes, Pharynx benign - Neck Neck: Supple, no meningeal sign, No bony TTP, No adenopathy, No JVD, No bruit - Cardiac Cardiac: RRR - Respiratory Respiratory: No respiratory distress, Clear bilaterally - Abdomen Abdomen: Normal bowel sounds, Other (Diffuse tenderness without guarding, rebound or rigidity) - Male Male : Deferred - Rectal Rectal: Deferred - Derm Derm: Normal color - Extremities Extremities: No deformity - Neuro Neuro: Alert and oriented X 3, senior professional services consultant 2-12 intact, No motor deficit, No sensory deficit, Normal speech Results - Vitals Vitals: Vital Signs - 24 hr 04/13/22 04/13/22 04/13/22 06:55 09:20 10:28 Temperature 36.5 C 39.6 C H Heart Rate 83 102 H 84 Respiratory 18 24 14 Rate Blood Pressure 158/91 H 151/80 H 111/60 O2 Saturation 94 94 99 If not protocol 2 : Oxygen Flow, liters/minute 04/13/22 04/13/22 04/13/22 11:14 12:09 13:26 Temperature 39.2 C H 38.2 C H Heart Rate 90 91 84 Respiratory 22 16 17 Rate Blood Pressure 98/65 95/64 95/59 L O2 Saturation 98 94 96 If not protocol 2 2 2 : Oxygen Flow, liters/minute 04/13/22 04/13/22 04/13/22 13:52 15:14 15:20 Temperature 37.3 C Heart Rate 80 75 77 Respiratory 15 15 Rate Blood Pressure 83/49 L 141/59 H 156/77 H O2 Saturation 96 98 If not protocol 2 : Oxygen Flow, liters/minute 04/13/22 04/13/22 04/13/22 15:29 16:00 16:35 Temperature Heart Rate 77 74 70 Respiratory 17 20 16 Rate Blood Pressure 126/61 135/61 H 120/55 L O2 Saturation 98 99 97 If not protocol : Oxygen Flow, liters/minute 04/13/22 04/13/22 04/13/22 17:00 17:30 18:00 Temperature Heart Rate 72 70 68 Respiratory 15 16 16 Rate Blood Pressure 135/64 H 125/59 L 119/62 O2 Saturation 98 95 94 If not protocol : Oxygen Flow, liters/minute Oxygen O2 Source Room air Oxygen Flow Rate 2 - EKG (time done) 0819 Rate: Rate (enter#) (84) Rhythm: NSR [place]: Normal Intervals: Prolonged VT, Prolonged QT QRS: Normal Ischemia: ST depression, Non specific changes Compare to prior EKG: Changed from prior EKG, Other (QTC prolongation, first- degree heart block and nonspecific ST and T wave abnormalities are new in comparison to previous 06/27/2019) - Labs Labs: Laboratory Tests 04/13/22 04/13/22 04/13/22 08:00 08:00 08:00 WBC 4.1 L RBC 4.51 L Hgb 13.3 L Hct 41.4 L MCV 91.8 MCH 29.5 MCHC 32.1 RDW 13.3 Plt Count 129 L MPV 10.1 Neut # (Auto) 3.5 Lymph # (Auto) 0.3 L Ramsey # (Auto) 0.3 Eos # (Auto) 0.0 Baso # (Auto) 0.0 Absolute Nucleated RBC 0.00 Nucleated RBC % 0.0 PT 12.2 INR 1.1 Sodium 135 Potassium 3.8 Chloride 101 Carbon Dioxide 26 Anion Gap 8.0 BUN 11 Creatinine 0.9 Estimated GFR (MDRD) 83 L Glucose 195 H Lactic Acid Calcium 8.5 Total Bilirubin 2.5 H AST 1048 H ALT 552 H Alkaline Phosphatase 120 Troponin I High Sens Total Protein 7.2 Albumin 3.8 Globulin 3.4 Albumin/Globulin Ratio 1.1 Lipase 34 Urine Color Urine Clarity Urine pH Ur Specific [place] Urine Protein Urine Glucose (UA) Urine Ketones Urine Occult Blood Urine Nitrite Urine Bilirubin Urine Urobilinogen Ur Leukocyte Esterase Urine RBC Urine WBC Ur Squamous Epith Cells Amorphous Sediment Urine Bacteria Urine Casts Ur Microscopic Review Urine Culture Comments Nasal Adenovirus (PCR) Nasal B. parapertussis DNA (PCR) Nasal Coronavir 229E PCR Nasal Coronavir HKU1 PCR Nasal Coronavir NL63 PCR Nasal Coronavir OC43 PCR Nasal Enterovir/Rhinovir PCR Nasal Influenza B PCR Nasal Influenza A PCR Nasal Parainfluen 1 PCR Nasal Parainfluen 2 PCR Nasal Parainfluen 3 PCR Nasal Parainfluen 4 PCR Nasal RSV (PCR) Nasal B.pertussis DNA PCR Nasal C.pneumoniae (PCR) Mikey Human Metapneumo PCR Nasal M.pneumoniae (PCR) Nasal SARS-CoV-2 (PCR) 04/13/22 04/13/22 04/13/22 08:00 08:00 11:10 WBC RBC Hgb Hct MCV MCH MCHC RDW Plt Count MPV Neut # (Auto) Lymph # (Auto) Ramsey # (Auto) Eos # (Auto) Baso # (Auto) Absolute Nucleated RBC Nucleated RBC % PT INR Sodium Potassium Chloride Carbon Dioxide Anion Gap BUN Creatinine Estimated GFR (MDRD) Glucose Lactic Acid 1.7 Calcium Total Bilirubin AST ALT Alkaline Phosphatase Troponin I High Sens 5.1 Total Protein Albumin Globulin Albumin/Globulin Ratio Lipase Urine Color Urine Clarity Urine pH Ur Specific [place] Urine Protein Urine Glucose (UA) Urine Ketones Urine Occult Blood Urine Nitrite Urine Bilirubin Urine Urobilinogen Ur Leukocyte Esterase Urine RBC Urine WBC Ur Squamous Epith Cells Amorphous Sediment Urine Bacteria Urine Casts Ur Microscopic Review Urine Culture Comments Nasal Adenovirus (PCR) NOT DETECTED Nasal B. parapertussis DNA (PCR) NOT DETECTED Nasal Coronavir 229E PCR NOT DETECTED Nasal Coronavir HKU1 PCR NOT DETECTED Nasal Coronavir NL63 PCR NOT DETECTED Nasal Coronavir OC43 PCR NOT DETECTED Nasal Enterovir/Rhinovir PCR NOT DETECTED Nasal Influenza B PCR NOT DETECTED Nasal Influenza A PCR NOT DETECTED Nasal Parainfluen 1 PCR NOT DETECTED Nasal Parainfluen 2 PCR NOT DETECTED Nasal Parainfluen 3 PCR NOT DETECTED Nasal Parainfluen 4 PCR NOT DETECTED Nasal RSV (PCR) NOT DETECTED Nasal B.pertussis DNA PCR NOT DETECTED Nasal C.pneumoniae (PCR) NOT DETECTED Mikey Human Metapneumo PCR NOT DETECTED Nasal M.pneumoniae (PCR) NOT DETECTED Nasal SARS-CoV-2 (PCR) NOT DETECTED 04/13/22 12:55 WBC RBC Hgb Hct MCV MCH MCHC RDW Plt Count MPV Neut # (Auto) Lymph # (Auto) Ramsey # (Auto) Eos # (Auto) Baso # (Auto) Absolute Nucleated RBC Nucleated RBC % PT INR Sodium Potassium Chloride Carbon Dioxide Anion Gap BUN Creatinine Estimated GFR (MDRD) Glucose Lactic Acid Calcium Total Bilirubin AST ALT Alkaline Phosphatase Troponin I High Sens Total Protein Albumin Globulin Albumin/Globulin Ratio Lipase Urine Color DARK YELLOW Urine Clarity CLEAR Urine pH 7.0 Ur Specific [place] 1.020 Urine Protein 100 H Urine Glucose (UA) 100 H Urine Ketones NEGATIVE Urine Occult Blood MODERATE H Urine Nitrite NEGATIVE Urine Bilirubin NEGATIVE Urine Urobilinogen >=8.0 H Ur Leukocyte Esterase NEGATIVE Urine RBC TNTC H Urine WBC 4-5 Ur Squamous Epith Cells FEW Squamous Amorphous Sediment Few Urine Bacteria Many H Urine Casts 0-2 Hyaline Casts Ur Microscopic Review INDICATED Urine Culture Comments NOT INDICATED Nasal Adenovirus (PCR) Nasal B. parapertussis DNA (PCR) Nasal Coronavir 229E PCR Nasal Coronavir HKU1 PCR Nasal Coronavir NL63 PCR Nasal Coronavir OC43 PCR Nasal Enterovir/Rhinovir PCR Nasal Influenza B PCR Nasal Influenza A PCR Nasal Parainfluen 1 PCR Nasal Parainfluen 2 PCR Nasal Parainfluen 3 PCR Nasal Parainfluen 4 PCR Nasal RSV (PCR) Nasal B.pertussis DNA PCR Nasal C.pneumoniae (PCR) Mikey Human Metapneumo PCR Nasal M.pneumoniae (PCR) Nasal SARS-CoV-2 (PCR) Procedures - Central Line Central Line Preparation: Consent Obtained (Verbal consent from patient's spouse), Ultrasound used, Sterile prep and drape Central line location: Right Femoral Central line type: Triple lumen Central line aftercare: Chlorhexidine disc placed, Secured, No complications, Pt tolerated well PD MEDICAL DECISION MAKING - ED course Complexity details: reviewed old records, reviewed results, re-evaluated patient, d/w patient, d/w family, d/w pre sales technical consultant ED course: Patient 72-year-old male presenting to the emergency department with chest and abdominal pain. Afebrile, hemodynamically stable on arrival to the emergency department. Somewhat somnolent on arrival however patient did receive 150 mcg of fentanyl per EMS prior to arrival. Diffuse abdominal tenderness without indications of peritonitis. Initial EKG demonstrated a new prolongation of his QTC as well as a new first-degree heart block and some nonspecific ST and T wave abnormalities. Troponin negative. Patient noted to have a mild leukopenia at 4.1. This is a downtrending white blood cell count from 2 days ago at which time his white blood cell count was 5.6. Additionally patient noted to have significant elevation in total bilirubin, ALT and AST as well as an uptrending alkaline phosphatase. Ordered for right upper quadrant ultrasound however this was a technically poor study due to body habitus and overlying gas pattern. Could not definitively rule out choledocholithiasis. No cholelithiasis or cholecystitis identified. While in the emergency department patient became febrile with T-max 103.2. Given acetaminophen. Blood cultures were ordered. Given concern for intra- abdominal pathology initially covered with Zosyn. Patient subsequently began to develop hypotension. This was refractory to fluid bolus. Right femoral central line was placed and he was started on vasopressors with significant improvement in his blood pressure. Remainder of his labs, urine studies as well as comprehensive imaging including CT scans of his chest, abdomen and pelvis were all benign. His cultures remain pending at this time. Given his increasing LFTs, total bilirubin and alkaline phosphatase I do have concern for possible cholangitis. His case was discussed with multiple consultants including gastroenterology at both [facility] and [facility] as well as with the intensive care unit at [facility]. At this time [facility] graciously accepts the patient in transfer. He will be transferred from our facility to [facility] for further evaluation and treatment. - Critical Care Time(min): 31 Time Includes: Direct patient care, Review records, Reassess patient, Document care, Coordinate care, See progress note Data interpretation: Labs, Pulse ox, Prior EKG, Cardiac output Procedures excluded from critical care time: Central IV, See progress note Departure - Departure Disposition: 02 Transfer Acute Care Hosp Clinical Impression: Cholangitis
[2022-04-13] MEDS ORDERED: SODIUM CHLORIDE 0.9% 500 ML IV STA (07:10)
[2022-04-13] MEDS ORDERED: LIDOCAINE 2%-EPI 1:100000 20 ML MDV SUBQ STA (07:59)
[2022-04-13] MEDS ORDERED: LIDOCAINE MPF 2%-EPI 1:200000 20 ML VIAL SUBQ STA (08:03)
[2022-04-13 08:11] LABS: BASOPHILS % (AUTO) 0.2 %; EOSINOPHILS % (AUTO) 0.2 %; HCT - HEMATOCRIT 41.4 % (42.0-52.0); HGB - HEMOGLOBIN 13.3 g/dL (14.0-18.0); LYMPHOCYTES # (AUTO) 0.3 10^3/uL (1.5-3.5); MEAN CORPUSCULAR HEMOGLOBIN 29.5 pg (27.0-31.0); MEAN CORPUSCULAR HGB CONC 32.1 g/dL (32.0-36.0); MEAN CORPUSCULAR VOLUME 91.8 fL (80.0-94.0); MEAN PLATELET VOLUME 10.1 fL (7.4-11.4); MONOCYTES # (AUTO) 0.3 10^3/uL (0.0-1.0); MONOCYTES % (AUTO) 6.5 %; NEUTROPHILS # (AUTO) 3.5 10^3/uL (1.5-6.6); NEUTROPHILS % (AUTO) 85.1 %; PLT - PLATELET COUNT 129 10^3/uL (130-450); RED BLOOD COUNT 4.51 10^6/uL (4.70-6.10); RED CELL DISTRIBUTION WIDTH 13.3 % (12.0-15.0); WHITE BLOOD COUNT 4.1 x10^3/uL (4.8-10.8)
[2022-04-13 08:28] LABS: INR 1.1 (0.8-1.2); PT - PROTHROMBIN TIME 12.2 secs (9.9-12.6)
[2022-04-13 08:35] LABS: ALBUMIN 3.8 g/dL (3.2-5.5); ALBUMIN/GLOBULIN RATIO 1.1 (1.0-2.2); BILIRUBIN,TOTAL 2.5 mg/dL (0.2-1.0); CALCIUM 8.5 mg/dL (8.5-10.3); CREATININE 0.9 mg/dL (0.6-1.2); POTASSIUM 3.8 mmol/L (3.5-5.0); TOTAL PROTEIN 7.2 g/dL (6.7-8.2)
[2022-04-13] MEDS ORDERED: PIPERACILLIN/TAZOBACTAM 4.5 GM in SODIUM CHLORIDE 0.9% MINIBAG 100 ML IV STA ×2 (08:48→19:05)
[2022-04-13] MEDS ORDERED: HYDROmorphone 1 MG/ML CARPUJECT IVP STA (09:08)
[2022-04-13] MEDS ORDERED: iohexoL-300 100 ML VIAL ONE (10:27)
[2022-04-13] MEDS ORDERED: ACETAMINOPHEN 325 MG TABLET PO STA (10:33)
[2022-04-13] MEDS ORDERED: iohexoL-300 100 ML VIAL IVP ONE (11:05)
--- NOTE | 2022-04-13 11:14 | Ultrasound Report ---
PROCEDURE: Abdomen Limited, ultrasound INDICATIONS: Evaluation for choledocholithiasis/Cholecystitis TECHNIQUE: Real-time focused scanning was performed of the abdomen, with image documentation. COMPARISON: CT abdomen pelvis 04/11/2022 FINDINGS: Liver: Liver is enlarged at 21.2 cm. Generalized increased echogenicity of the hepatic parenchyma. E valuation is limited due to body habitus and overlying bowel gas. Hepatopedal flow is noted. Partiall y imaged hepatic simple cyst noted. Gallbladder: Gallbladder wall is upper limits of normal at 3.4 cm. No shadowing calculi observed. Common Bile Duct: 5.5 mm. Pancreas: Unremarkable as visualized. Right Kidney: Appropriate in size and echotexture. No evidence of hydronephrosis. No shadowing calc joseluis. No solid or cystic mass lesion. Exophytic 1.3 cm right renal cyst noted. IMPRESSION: 1. Limited study related to body habitus and overlying bowel gas 2. Partially imaged CBD measures 5.5 mm. If there is clinical concern for choledocholithiasis, consid er follow-up MRCP. 3. No evidence of cholelithiasis. Reviewed by: Rico George MD on 04/13/2022 10:13 AM [facility] Approved by: Rico George MD on 04/13/2022 10:13 AM [facility] Station ID: [id number]
--- NOTE | 2022-04-13 11:27 | CT Report ---
PROCEDURE: CT abdomen pelvis with contrast INDICATIONS: Abd pain, elevated LFTs, [place], known hx kd stn CONTRAST: 100ml omni 300 TECHNIQUE: After the administration of contrast, 5 mm thick sections acquired from the diaphragms to the sym physis. 5 mm thick coronal and sagittal reformats were acquired. For radiation dose reduction, the following was used: automated exposure control, adjustment of mA and/or kV according to patient size . COMPARISON: 04/11/2022 FINDINGS: Lower thorax: The lung bases are clear. Heart size normal. No hiatal hernia. Dense coronary artery vascular calcification and midline sternotomy wires noted. Liver: Normal in size and attenuation. No contour deformity present. Hepatic cysts remain unchanged near the dome Biliary system: No calcified cholelithiasis or pericholecystic inflammation. No evidence of bile du ct dilatation. Pancreas: Unremarkable without mass or inflammation evident. Spleen: Splenomegaly, 16.3 cm Adrenals: Normal morphology and density. Reproductive system: Unremarkable as visualized. Urinary system: Right renal simple cyst and nonobstructive calculus remains unchanged from the prior. There is mild left perinephric stranding which is a nonspecific and unchanged in prior. No hydroneph rosis or hydroureter present. Gastrointestinal system: The bowel appears unremarkable with no evidence of bowel obstruction or inf lammation. The stomach appears unremarkable. Appendix: No findings to suggest acute appendicitis. Peritoneal spaces: No mesenteric or retroperitoneal adenopathy. No free air. No free fluid. Vasculature: The IVC, aorta and iliac vasculature are unremarkable. Musculoskeletal: Normal bone mineralization. No acute fractures. Moderate right inguinal hernia pre sent. Degenerative disc disease and arthropathy in the lower lumbar spine. Incidental penile prosthes is noted IMPRESSION: 1. Resolution of left-sided ureteral dilation. 2. Stable right renal nonobstructive calculus and simple hepatorenal cysts. 3. Incidental splenomegaly, 16.3 cm Reviewed by: Rico George MD on 04/13/2022 10:26 AM [facility] Approved by: Rico George MD on 04/13/2022 10:26 AM [facility] Station ID: [id number]
--- NOTE | 2022-04-13 11:38 | CT Report ---
PROCEDURE: CT angiogram chest with contrast INDICATIONS: Short of breath. CONTRAST: 100ml omni 300 TECHNIQUE: After the administration of intravenous contrast, 2 mm axial images were acquired from th e pulmonary apices to the posterior costophrenic angles during the arterial phase. In addition, 1 mm lung kernel and 5 mm soft tissue kernel reconstructions were performed. For radiation dose reduction, the following was used: automated exposure control, adjustment of mA and/or kV according to patient size. COMPARISON: 06/27/2019 FINDINGS: Image quality: Evaluation of the lungs limited by motion artifact Pulmonary arteries: Pulmonary arteries are normal in size, and demonstrate no intraluminal filling d efects to suggest central pulmonary embolism. Lungs and pleura: Lungs are clear. No pleural effusions or pneumothorax. Central and peripheral ai rways are patent. Mediastinum: Heart size is normal, without pericardial effusion. No mediastinal or hilar adenopathy . Thoracic aorta is normal in caliber and enhancement. Esophagus is normal in caliber, without hiat al hernia. Sternotomy wires, dense coronary artery vascular calcification and Bones and chest wall: No suspicious bony lesions. Ribs and thoracic spine appear intact throughout. No axillary or supraclavicular adenopathy. The thyroid is normal in size and there are no incident al findings. IMPRESSION: 1. No evidence of pulmonary embolism, aortic dissection or aneurysm. 2. Limited evaluation the lungs show no infiltrate, pleural effusion or pneumothorax Reviewed by: Rico George MD on 04/13/2022 10:36 AM [facility] Approved by: Rico George MD on 04/13/2022 10:36 AM [facility] Station ID: [id number]
[2022-04-13 12:46] LABS: B. PARAPERTUSSIS- RESP PCR PAN NOT DETECTED; B. PERTUSSIS- RESP PCR PANEL NOT DETECTED; C. PNEUMONIAE- RESP PCR PANEL NOT DETECTED; CORONAVIRUS 229E-RESP PCR NOT DETECTED; CORONAVIRUS HKU1-RESP PCR NOT DETECTED; CORONAVIRUS NL63-RESP PCR NOT DETECTED; CORONAVIRUS OC43-RESP PCR NOT DETECTED; HUMAN METAPNEUMOVIRUS NOT DETECTED; INFLUENZA A- RESP PCR PANEL NOT DETECTED; INFLUENZA B - RESP PCR PANEL NOT DETECTED; M. PNEUMONIAE- RESP PCR PANEL NOT DETECTED; PARAINFLUENZA VIRUS 1 NOT DETECTED; PARAINFLUENZA VIRUS 2 NOT DETECTED; PARAINFLUENZA VIRUS 3 NOT DETECTED; PARAINFLUENZA VIRUS 4 NOT DETECTED; RHINOVIRUS/ENTEROVIRUS NOT DETECTED; RSV- RESP PCR PANEL NOT DETECTED; SARS-CoV-2 -RESP PCR PANEL NOT DETECTED
[2022-04-13 13:03] LABS: GLUCOSE, URINE (UA) 100 mg/dL (NEGATIVE); KETONES,URINE (UA) NEGATIVE (NEGATIVE); LEUKOCYTE ESTERASE, URINE NEGATIVE (NEGATIVE); NITRITE,URINE NEGATIVE (NEGATIVE); OCCULT BLOOD,URINE MODERATE (NEGATIVE); PROTEIN,URINE 100 mg/dL (NEGATIVE); UROBILINOGEN,URINE >=8.0 E.U./dL (NORMAL)
[2022-04-13 13:10] LABS: BILIRUBIN,URINE NEGATIVE (NEGATIVE); CLARITY,URINE CLEAR (CLEAR); ICTOTEST,URINE NEGATIVE
[2022-04-13 13:19] LABS: AMORPHOUS SEDIMENT,UR Few /LPF; BACTERIA,URINE Many /HPF (None Seen); CASTS, URINE 0-2 Hyaline Casts /LPF; RBC,URINE TNTC /HPF (0-5); SQUAMOUS EPITHELIAL CELL,UR FEW Squamous (<= Few)
[2022-04-13] MEDS ORDERED: SODIUM CHLORIDE 0.9% 1,000 ML IV STA (13:52)
[2022-04-13] MEDS ORDERED: NOREPINEPHRINE/D5W 8 MG/250 ML BAG IV STA (14:40)
--- NOTE | 2022-04-13 15:16 | ED Physician Documentation ---
ED Addendum - Addendum Addendum: 04/13/22 15:15 Dr. Da Silva was placing a central line. I spoke with Dr. William Balderas and product mgr at [facility] about this patient who will check into bed status and call us back.
[2022-04-13 19:20] VITALS: BP 135/66
[2022-04-15 06:11] LABS: HBsAG SCREEN Negative (Negative); HCV AB <0.1 s/co ratio (0.0-0.9); HEPATITIS B CORE IGM AB Negative (Negative)
== END 2022-04-13 19:48 | disposition short-term general hospital (02) ==
LOC: EDUNIT# → ED 06:50
DX: K83.09 Other cholangitis (principal); I10 Essential (primary) hypertension
CPT/HCPCS: 36415; 36556; 71275; 74177; 76705; 80053; 81001; 83605; 83690; 84484; 85025; 85610; 86705; 86709; 86803; 87040; 87340; 87633; 93005; 96361; 96365; 96367; 96375; 96376; 99291; A9270; J1170; Q9967; 81003; 87086

== ENCOUNTER 2022-05-05 08:00 | Outpatient (CLI) | payer MEDICARE, OTHER | END 2022-05-05 23:59 | disposition home or self-care (01) | LOC: LAB.WCP 08:00 | PROVIDERS: ATTEND Physician Assistant | DX: R39.15 Urgency of urination (principal) | CPT/HCPCS: 87086 ==

== ENCOUNTER 2022-05-05 12:21 | Outpatient (CLI) | payer MEDICARE, OTHER ==
[2022-05-05 18:02] LABS: BASOPHILS % (AUTO) 0.2 %; EOSINOPHILS % (AUTO) 0.1 %; HCT - HEMATOCRIT 40.2 % (42.0-52.0); LYMPHOCYTES % (AUTO) 9.5 %; MEAN CORPUSCULAR HEMOGLOBIN 29.6 pg (27.0-31.0); MEAN CORPUSCULAR HGB CONC 32.3 g/dL (32.0-36.0); MEAN CORPUSCULAR VOLUME 91.6 fL (80.0-94.0); MONOCYTES # (AUTO) 0.9 10^3/uL (0.0-1.0); MONOCYTES % (AUTO) 8.8 %; NEUTROPHILS # (AUTO) 8.3 10^3/uL (1.5-6.6); NEUTROPHILS % (AUTO) 81.1 %; PLT - PLATELET COUNT 160 10^3/uL (130-450); RED BLOOD COUNT 4.39 10^6/uL (4.70-6.10); RED CELL DISTRIBUTION WIDTH 14.5 % (12.0-15.0); WHITE BLOOD COUNT 10.2 x10^3/uL (4.8-10.8)
[2022-05-05 18:10] LABS: ALBUMIN 3.5 g/dL (3.2-5.5); ALBUMIN/GLOBULIN RATIO 1.1 (1.0-2.2); BILIRUBIN,TOTAL 1.4 mg/dL (0.2-1.0); CALCIUM 9.3 mg/dL (8.5-10.3); CREATININE 1.7 mg/dL (0.6-1.2); POTASSIUM 4.2 mmol/L (3.5-5.0); TOTAL PROTEIN 6.8 g/dL (6.7-8.2)
== END 2022-05-05 12:22 | disposition home or self-care (01) ==
LOC: LAB.N 12:21
PROVIDERS: ATTEND Physician Assistant Medical
DX: R39.15 Urgency of urination (principal)
CPT/HCPCS: 36415; 80053; 85025; 87086; 87181

== ENCOUNTER 2022-05-06 13:53 | Emergency (ER) | payer MEDICARE, OTHER ==
[2022-05-06 14:23] LABS: BASOPHILS % (AUTO) 0.2 %; HCT - HEMATOCRIT 37.4 % (42.0-52.0); HGB - HEMOGLOBIN 12.3 g/dL (14.0-18.0); LYMPHOCYTES # (AUTO) 0.5 10^3/uL (1.5-3.5); LYMPHOCYTES % (AUTO) 6.7 %; MEAN CORPUSCULAR HEMOGLOBIN 28.9 pg (27.0-31.0); MEAN CORPUSCULAR HGB CONC 32.9 g/dL (32.0-36.0); MONOCYTES # (AUTO) 0.8 10^3/uL (0.0-1.0); MONOCYTES % (AUTO) 10.2 %; NEUTROPHILS # (AUTO) 6.6 10^3/uL (1.5-6.6); NEUTROPHILS % (AUTO) 82.4 %; PLT - PLATELET COUNT 128 10^3/uL (130-450); RED BLOOD COUNT 4.25 10^6/uL (4.70-6.10); WHITE BLOOD COUNT 8.1 x10^3/uL (4.8-10.8)
[2022-05-06] MEDS ORDERED: SODIUM CHLORIDE 0.9% 1,000 ML IV STA (14:24)
[2022-05-06] MEDS ORDERED: PIPERACILLIN/TAZOBACTAM 3.375 GM in SODIUM CHLORIDE 0.9% MINIBAG 100 ML IV STA (14:24)
--- NOTE | 2022-05-06 14:25 | ED Physician Documentation ---
History of Present Illness - Stated complaint Stated Complaint: MALE - Chief complaint Chief Complaint: Abd Pain - History obtained from History obtained from: Patient, Family - Additonal information Additional information: This is a 72-year-old male with a past medical history of kidney stones was recently placed biliary stent earlier this month who presents with 1 day of extreme fatigue, sleeping all day, shaking chills and reported fever at home of 102. He denied any abdominal or flank pain but has been urinating frequently though small amounts over the course the last day. He was seen in clinic for same symptoms yesterday though not quite as bad and had a work-up which showed some mild acute kidney injury and urinary tract infection. He was started on Cipro which she took 1 dose last night and once again this morning but seems to be worsening and thus presented here. The patient is due to have his gallbladder removed next week at [facility]. He has not had any right upper quadrant pain, no vomiting and no his appetite has been poor, he has been tolerating some p.o. Review of Systems Ten Systems: 10 systems reviewed and negative (except as noted in HPI) PD PAST MEDICAL HISTORY - Past Medical History Past Medical History: Yes Cardiovascular: Hypertension, High cholesterol, Angina, [place] Respiratory: Sleep apnea, CPAP use Endocrine/Autoimmune: None GI: Other : None HEENT: None Psych: Depression Musculoskeletal: Fibromyalgia, Chronic back pain Derm: None - Past Surgical History Past Surgical History: Yes General: Other Ortho: Arthroscopic surgery Cardiovascular: CABG HEENT: Tonsil/Adenoidectomy Derm: Skin cancer surgery - Present Medications Home Medications: Ambulatory Orders Medication Instructions Recorded Confirmed Cetirizine [ZyrTEC] 10 mg PO DAILY 08/18/13 04/13/22 Furosemide 20 mg PO DAILY 08/18/13 04/13/22 Levothyroxine [Synthroid] 175 mcg PO DAILY 08/18/13 04/13/22 Losartan [Cozaar] 50 mg PO BID 08/18/13 04/13/22 Potassium Chloride [K-Dur] 20 meq PO BID 08/18/13 04/13/22 lamoTRIgine [LaMICtal] 200 mg PO QPM 08/18/13 04/13/22 Cyanocobalamin (Vitamin B-12) 1,000 mcg PO DAILY 02/10/14 04/13/22 [B-12] Fluticasone [Flonase] 1 sprays MIKEY DAILY PRN 02/10/14 04/13/22 Multivitamin [Multivitamins] 1 each PO DAILY 02/10/14 04/13/22 Ubidecarenone [Co Q-10] 100 mg PO DAILY 02/10/14 04/13/22 Cyclobenzaprine [Flexeril] 10 mg PO TID PRN 05/18/17 04/13/22 Ropinirole HCl 6 mg PO BID 05/18/17 04/13/22 Clopidogrel [Plavix] 75 mg PO DAILY 03/19/19 04/13/22 Gabapentin 4 cap PO BID 03/19/19 04/13/22 traZODone [Desyrel] 50 mg PO HS 03/19/19 04/13/22 Acetylcysteine [Nac] 600 mg PO DAILY 04/11/22 04/13/22 Albuterol Sulfate [Proair 1 - 2 puffs IH Q4HR PRN 04/11/22 04/13/22 Digihaler] Alpha Lipoic Acid 600 mg PO BID 04/11/22 04/13/22 Calcium Carbonate [Calcium Antacid] 200 mg PO TIDWM 04/11/22 04/13/22 Cholecalciferol (Vitamin D3) 3,000 mcg PO DAILY 04/11/22 04/13/22 [Vitamin D3] Duloxetine HCl [Cymbalta] 60 mg PO DAILY 04/11/22 04/13/22 Finasteride [Proscar] 5 mg PO DAILY 04/11/22 04/13/22 Fluticasone 44 Mcg [Flovent] 1 puffs INH PRN PRN 04/11/22 04/13/22 Metformin HCl 1,000 mg PO BID 04/11/22 04/13/22 Metronidazole 1% Gel [Metrogel] 0 gm TOP PRN PRN 04/11/22 04/13/22 Nystatin/Triamcin 0 gm TP PRN PRN 04/11/22 04/13/22 [Nystatin-Triamcinolone Ointm] Pantoprazole [Protonix] 40 mg PO BID 04/11/22 04/13/22 Rosuvastatin Calcium [Crestor] 40 mg PO DAILY PM 04/11/22 04/13/22 Tamsulosin [Flomax] 2 cap PO DAILY PM 04/11/22 04/13/22 modafiniL [Provigil] 200 mg PO BID 04/11/22 04/13/22 Sulfamethox/Trimeth 800/160 1 each PO BID #20 tablet 05/06/22 [Bactrim Ds 800/160] - Allergies Allergies/Adverse Reactions: Allergies Allergy/AdvReac Type Severity Reaction Status Date / Time No Known Drug Allergies Allergy Verified 05/06/22 14:03 - Social History Does the pt smoke?: No Smoking Status: Never smoker Does the pt drink ETOH?: No Does the pt have substance abuse?: No - Immunizations Immunizations are current?: Yes - POLST Patient has POLST: No PD ED PE NORMAL - Vitals Vital signs reviewed: Yes - General General: Alert and oriented X 3, No acute distress, Well developed/nourished - HEENT HEENT: Atraumatic, Pharynx benign - Neck Neck: Supple, no meningeal sign, No JVD - Cardiac Cardiac: RRR, No murmur, No gallop, No rub - Respiratory Respiratory: No respiratory distress, Clear bilaterally - Abdomen Abdomen: Normal bowel sounds, Soft, Non tender, Non distended - Back Back: No CVA TTP - Derm Derm: Normal color, Warm and dry, No rash - Neuro Neuro: Alert and oriented X 3 Eye Opening: Spontaneous Motor: Obeys Commands Verbal: Oriented GCS Score: 15 - Psych Psych: Normal mood, Normal affect Results - Vitals Vitals: Vital Signs - 24 hr 05/06/22 05/06/22 05/06/22 14:00 14:04 16:02 Temperature 37.9 C 36.9 C Heart Rate 101 H 97 75 Respiratory 16 13 24 Rate Blood Pressure 119/70 111/77 108/67 O2 Saturation 97 94 99 Oxygen O2 Source Room air - Labs Labs: Microbiology 05/06/22 14:31 Urine Culture - Preliminary Urine,Clean Catch Escherichia Coli 05/06/22 14:10 Blood Culture - Preliminary Blood - Left Iv Start 05/06/22 14:13 Blood Culture (PCR) - Final Blood - Right Arm 05/06/22 14:13 Blood Culture - Preliminary Blood - Right Arm Laboratory Tests 05/06/22 05/06/22 05/06/22 14:04 14:13 14:13 WBC 8.1 RBC 4.25 L Hgb 12.3 L Hct 37.4 L MCV 88.0 MCH 28.9 MCHC 32.9 RDW 14.0 Plt Count 128 L MPV 10.0 Neut # (Auto) 6.6 Lymph # (Auto) 0.5 L Kle[place] # (Auto) 0.8 Eos # (Auto) 0.0 Baso # (Auto) 0.0 Absolute Nucleated RBC 0.00 Nucleated RBC % 0.0 Sodium 131 L Potassium 3.1 L Chloride 96 L Carbon Dioxide 23 Anion Gap 12.0 BUN 28 H Creatinine 1.4 H Estimated GFR (MDRD) 50 L Glucose 176 H Lactic Acid 0.9 Calcium 8.7 Total Bilirubin 1.5 H AST 28 ALT 19 Alkaline Phosphatase 35 L Total Protein 6.7 Albumin 3.3 Globulin 3.4 Albumin/Globulin Ratio 1.0 Lipase 28 Urine Color Urine Clarity Urine pH Ur Specific Grover Urine Protein Urine Glucose (UA) Urine Ketones Urine Occult Blood Urine Nitrite Urine Bilirubin Urine Urobilinogen Ur Leukocyte Esterase Urine RBC Urine WBC Ur Squamous Epith Cells Urine Bacteria Ur Microscopic Review Urine Culture Comments 05/06/22 14:31 WBC RBC Hgb Hct MCV MCH MCHC RDW Plt Count MPV Neut # (Auto) Lymph # (Auto) Kle[place] # (Auto) Eos # (Auto) Baso # (Auto) Absolute Nucleated RBC Nucleated RBC % Sodium Potassium Chloride Carbon Dioxide Anion Gap BUN Creatinine Estimated GFR (MDRD) Glucose Lactic Acid Calcium Total Bilirubin AST ALT Alkaline Phosphatase Total Protein Albumin Globulin Albumin/Globulin Ratio Lipase Urine Color YELLOW Urine Clarity CLOUDY Urine pH 6.0 Ur Specific [place] 1.025 Urine Protein 100 H Urine Glucose (UA) NEGATIVE Urine Ketones TRACE Urine Occult Blood LARGE H Urine Nitrite NEGATIVE Urine Bilirubin NEGATIVE Urine Urobilinogen 1 (NORMAL) Ur Leukocyte Esterase MODERATE H Urine RBC TNTC H Urine WBC >25 H Ur Squamous Epith Cells FEW Squamous Urine Bacteria Many H Ur Microscopic Review INDICATED Urine Culture Comments INDICATED PD MEDICAL DECISION MAKING - ED course Complexity details: reviewed results, re-evaluated patient, considered differential, d/w patient, d/w family ED course: This is a 72-year-old male with a past medical history as noted per HPI who Presented with fatigue and weakness as well as frequent urination. He was started the day prior On ciprofloxacin for a UTI it was noted in clinic and has taken 2 doses of that without improvement. He apparently had a fever at home But was afebrile throughout his stay here. We did do a sepsis work-up given concern that he may have sepsis related to UTI Given mild tachycardia on arrival however the work-up was largely reassuring. He does still have signs of urinary tract infection and this was sent for culture. His renal function has improved from yesterday and his CBC is stable. He was started on Zosyn for suspected UTI vs intrabdominal infection pending further work-up. We obtained a CT of the abdomen and pelvis given his recent choledocholithiasis and his biliary stent appears in proper position, there are no kidney stones or other acute findings other than signs of likely cystitis, no pyelonephritis. He also received a 500 mL bolus. Prior urinary cultures reviewed and patient did have a ESBL E. coli back in 2019 that was resistant to many different antibiotics but sensitive to Bactrim. He also had a prior UTI years earlier that was resistant to cephalosporins and ciprofloxacin. I therefore have discussed with patient and his that I recommend that we change the antibiotic to Bactrim but he will need to be monitored closely to recheck his renal function in the next couple of days. I did consider hospitalization for this patient given his hx/o ESBL and limited PO medication options however he does not meet sepsis criteria, we did road test him and he is able to ambulate and is tolerating p.o., and his physical exam is largely reassuring other than fatigue. I therefore will discharge him home with a change in antibiotics but he was advised to return if he had worsening symptoms or other new concerns. I did request that he have his blood redrawn in a couple of days to trend his renal function given that he will be on Bactrim. Departure - Departure Disposition: Home, Self Care Clinical Impression: Acute cystitis Qualifiers: Hematuria presence: without hematuria Qualified Code(s): N30.00 - Acute cystitis without hematuria Condition: Good Instructions: ED Infec Bladder Cystitis Male Prescriptions: Sulfamethox/Trimeth 800/160 [Bactrim Ds 800/160] 1 each PO BID #20 tablet Comments: Kelton has a urinary tract infection but the remainder of his labs are stable at this time and he does not require hospitalization Today. His CT scan showed bladder infection but no signs of kidney infection and no new kidney stones or issues with his gallbladder. I suspect he may be resistant to the antibiotic that was prescribed in the outpatient setting thus I am going to change his antibiotics. He has had resistant to a number of antibiotics in the past.You need to stop the Cipro that the patient is on and start a medication called Bactrim. While you are on this medication, he should not take the potassium supplementation he usually takes. He will also need to have his kidney function checked again in a couple of days, And Ensure he is drinking plenty of water He can be seen in clinic for repeat kidney function testing. If you feel is worsening, return to the ER. Discharge Date/Time: 05/06/22 17:35
[2022-05-06 14:37] LABS: ALBUMIN 3.3 g/dL (3.2-5.5); BILIRUBIN,TOTAL 1.5 mg/dL (0.2-1.0); CALCIUM 8.7 mg/dL (8.5-10.3); CREATININE 1.4 mg/dL (0.6-1.2); POTASSIUM 3.1 mmol/L (3.5-5.0); TOTAL PROTEIN 6.7 g/dL (6.7-8.2)
[2022-05-06 14:41] LABS: BILIRUBIN,URINE NEGATIVE (NEGATIVE); GLUCOSE, URINE (UA) NEGATIVE (NEGATIVE); KETONES,URINE (UA) TRACE mg/dL (NEGATIVE); LEUKOCYTE ESTERASE, URINE MODERATE (NEGATIVE); NITRITE,URINE NEGATIVE (NEGATIVE); OCCULT BLOOD,URINE LARGE (NEGATIVE); PROTEIN,URINE 100 mg/dL (NEGATIVE); UROBILINOGEN,URINE 1 (NORMAL) E.U./dL (NORMAL)
[2022-05-06 14:44] LABS: CLARITY,URINE CLOUDY (CLEAR)
[2022-05-06 15:01] LABS: BACTERIA,URINE Many /HPF (None Seen); RBC,URINE TNTC /HPF (0-5); SQUAMOUS EPITHELIAL CELL,UR FEW Squamous (<= Few); WBC,URINE >25 /HPF (0-3)
[2022-05-06 16:24] VITALS: BP 108/67
--- NOTE | 2022-05-06 16:26 | CT Report ---
PROCEDURE: ABDOMEN/PELVIS WO INDICATIONS: septic, UTI. eval for ureteral stone. TECHNIQUE: Noncontrast 5 mm thick sections acquired from the diaphragms to the symphysis. 5 mm coronal and sagi ttal reformats were then performed. For radiation dose reduction, the following was used: automated exposure control, adjustment of mA and/or kV according to patient size. COMPARISON: CT abdomen and pelvis with contrast dated 04/13/2022. FINDINGS: Image quality: Excellent. ABDOMEN: Lung bases: Lung bases are clear. Heart size is normal. Solid organs: Liver and spleen are normal in size. Gallbladder is unremarkable without stones. Inte rval placement of a Silastic endobiliary stent. No dilated bile ducts. Air is present in the left int rahepatic ducts. Pancreas is normal in contours. No adrenal nodules. There is a nonobstructing right renal stone. It is a lower pole stone measuring 7 mm. There is no right hydronephrosis or hydrourete r. 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 The left ureters are again not ed to be mildly prominent. Peritoneum and bowel: Unenhanced bowel loops demonstrate normal wall thickness and caliber. No free fluid or air. Nodes and vessels: No retroperitoneal or mesenteric adenopathy by size criteria. Aorta and inferior vena cava are normal in caliber. Miscellaneous: No ventral hernias. PELVIS: Genitourinary: Diffuse bladder wall thickening, increased compared to the previous study. Miscellaneous: Fat-containing right inguinal hernia. No inguinal adenopathy. Bones: No suspicious bony lesions. No vertebral body compression fractures. IMPRESSION: 1. Short interval development of diffuse bladder wall thickening, suggesting acute bacterial cystitis . 2. 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 3. Nonobstructing right renal stone. 4. Interval placement of a biliary stent. Reviewed by: Matt Baltazar MD on 05/06/2022 4:25 PM PST Approved by: Matt Baltazar MD on 05/06/2022 4:25 PM PST Station ID: [id number]
[2022-05-06] MEDS ORDERED: POTASSIUM CHLORIDE 20 MEQ TABLET PO STA (16:41)
[2022-05-06] MEDS ORDERED: SULFAMETH/TRIMETH DS 800/160 MG TABLET PO STA (16:43)
== END 2022-05-06 17:35 | disposition home or self-care (01) ==
LOC: EDUNIT# → ED 13:53
DX: N30.00 Acute cystitis without hematuria (principal)
CPT/HCPCS: 36415; 74176; 80053; 81001; 83605; 83690; 85025; 87040; 87086; 87150; 87181; 96365; 99284; A9270; 81003

== ENCOUNTER → 2022-05-06 | Outpatient (CLI) | payer MEDICARE, OTHER | END | disposition critical access hospital (66) | LOC: EMS 13:32 | DX: R53.1 Weakness (principal); R41.0 Disorientation, unspecified; R50.9 Fever, unspecified; R11.0 Nausea; R10.31 Right lower quadrant pain | CPT/HCPCS: A0425; A0429 ==

== ENCOUNTER 2022-05-08 15:40 | Emergency (ER) | payer MEDICARE, OTHER ==
[2022-05-08 16:38] LABS: BASOPHILS % (AUTO) 0.4 %; EOSINOPHILS # (AUTO) 0.1 10^3/uL (0.0-0.7); EOSINOPHILS % (AUTO) 0.9 %; HCT - HEMATOCRIT 40.9 % (42.0-52.0); HGB - HEMOGLOBIN 13.5 g/dL (14.0-18.0); LYMPHOCYTES # (AUTO) 0.9 10^3/uL (1.5-3.5); LYMPHOCYTES % (AUTO) 15.8 %; MEAN CORPUSCULAR HEMOGLOBIN 28.8 pg (27.0-31.0); MEAN CORPUSCULAR VOLUME 87.2 fL (80.0-94.0); MEAN PLATELET VOLUME 9.8 fL (7.4-11.4); MONOCYTES # (AUTO) 0.5 10^3/uL (0.0-1.0); MONOCYTES % (AUTO) 9.3 %; NEUTROPHILS # (AUTO) 4.2 10^3/uL (1.5-6.6); NEUTROPHILS % (AUTO) 73.2 %; PLT - PLATELET COUNT 161 10^3/uL (130-450); RED BLOOD COUNT 4.69 10^6/uL (4.70-6.10); RED CELL DISTRIBUTION WIDTH 13.8 % (12.0-15.0); WHITE BLOOD COUNT 5.7 x10^3/uL (4.8-10.8)
[2022-05-08 16:54] LABS: ALBUMIN 3.2 g/dL (3.2-5.5); ALBUMIN/GLOBULIN RATIO 0.7 (1.0-2.2); BILIRUBIN,TOTAL 1.6 mg/dL (0.2-1.0); CALCIUM 9.2 mg/dL (8.5-10.3); CREATININE 1.3 mg/dL (0.6-1.2); POTASSIUM 3.1 mmol/L (3.5-5.0); TOTAL PROTEIN 7.6 g/dL (6.7-8.2)
[2022-05-08] MEDS ORDERED: MEROPENEM 1 GM in SODIUM CHLORIDE 0.9% MINIBAG 100 ML IV STA (17:12)
--- NOTE | 2022-05-08 17:53 | ED Physician Documentation ---
History of Present Illness - Stated complaint Stated Complaint: POSITIVE CULTURE - Chief complaint Chief Complaint: Abd Pain - History obtained from History obtained from: Patient - Additonal information Additional information: This is a very pleasant 72-year-old gentleman with a past medical history significant for recent choledocholithiasis requiring a biliary stent which was placed at [facility] and patient is due to have the stent removed on May 16 and a subsequent cholecystectomy. He was seen 2 days ago here by me for fever and chills and was found to have a urinary tract infection. He was started on Bactrim given prior ESBL. He was discharged home however called back yesterday because he had a positive blood culture. The patient went to [facility] Rather than return here yesterday because he wanted to possibly see his surgeon and have the procedure while he was there. He was seen in the ER there where he waited reportedly for 11 hours, and received a dose of ceftriaxone and Bactrim and was discharged home. The patient actually feels A little better today but I had the nurse follow-up with the patient over the phone Because his blood culture was positive, Chas have asked him to return to the hospital for IV antibiotics. The patient continues to spike occasional fevers at home, T-max was 102.6 yesterday. Today was the first day has been able to eat anything in the last 3 days and tolerated it without difficulty. He denies any cough or URI symptoms, no chest pain or difficulty breathing, no abdominal pain, no vomiting, diarrhea, dysuria. He did have some urinary frequency before starting antibiotics. He still feels weak her than baseline but not as weak as he was few days ago. Review of Systems Ten Systems: 10 systems reviewed and negative (Except as noted in HPI) PD PAST MEDICAL HISTORY - Past Medical History Past Medical History: Yes Cardiovascular: Hypertension, High cholesterol, Angina, [place] Respiratory: Sleep apnea, CPAP use Endocrine/Autoimmune: None GI: Other : None HEENT: None Psych: Depression Musculoskeletal: Fibromyalgia, Chronic back pain Derm: None - Past Surgical History Past Surgical History: Yes General: Other Ortho: Arthroscopic surgery Cardiovascular: CABG HEENT: Tonsil/Adenoidectomy Derm: Skin cancer surgery - Present Medications Home Medications: Ambulatory Orders Medication Instructions Recorded Confirmed Cetirizine [ZyrTEC] 10 mg PO DAILY 08/18/13 04/13/22 Furosemide 20 mg PO DAILY 08/18/13 04/13/22 Levothyroxine [Synthroid] 175 mcg PO DAILY 08/18/13 04/13/22 Losartan [Cozaar] 50 mg PO BID 08/18/13 04/13/22 Potassium Chloride [K-Dur] 20 meq PO BID 08/18/13 04/13/22 lamoTRIgine [LaMICtal] 200 mg PO QPM 08/18/13 04/13/22 Cyanocobalamin (Vitamin B-12) 1,000 mcg PO DAILY 02/10/14 04/13/22 [B-12] Fluticasone [Flonase] 1 sprays MIKEY DAILY PRN 02/10/14 04/13/22 Multivitamin [Multivitamins] 1 each PO DAILY 02/10/14 04/13/22 Ubidecarenone [Co Q-10] 100 mg PO DAILY 02/10/14 04/13/22 Cyclobenzaprine [Flexeril] 10 mg PO TID PRN 05/18/17 04/13/22 Ropinirole HCl 6 mg PO BID 05/18/17 04/13/22 Clopidogrel [Plavix] 75 mg PO DAILY 03/19/19 04/13/22 Gabapentin 4 cap PO BID 03/19/19 04/13/22 traZODone [Desyrel] 50 mg PO HS 03/19/19 04/13/22 Acetylcysteine [Nac] 600 mg PO DAILY 04/11/22 04/13/22 Albuterol Sulfate [Proair 1 - 2 puffs IH Q4HR PRN 04/11/22 04/13/22 Digihaler] Alpha Lipoic Acid 600 mg PO BID 04/11/22 04/13/22 Calcium Carbonate [Calcium Antacid] 200 mg PO TIDWM 04/11/22 04/13/22 Cholecalciferol (Vitamin D3) 3,000 mcg PO DAILY 04/11/22 04/13/22 [Vitamin D3] Duloxetine HCl [Cymbalta] 60 mg PO DAILY 04/11/22 04/13/22 Finasteride [Proscar] 5 mg PO DAILY 04/11/22 04/13/22 Fluticasone 44 Mcg [Flovent] 1 puffs INH PRN PRN 04/11/22 04/13/22 Metformin HCl 1,000 mg PO BID 04/11/22 04/13/22 Metronidazole 1% Gel [Metrogel] 0 gm TOP PRN PRN 04/11/22 04/13/22 Nystatin/Triamcin 0 gm TP PRN PRN 04/11/22 04/13/22 [Nystatin-Triamcinolone Ointm] Pantoprazole [Protonix] 40 mg PO BID 04/11/22 04/13/22 Rosuvastatin Calcium [Crestor] 40 mg PO DAILY PM 04/11/22 04/13/22 Tamsulosin [Flomax] 2 cap PO DAILY PM 04/11/22 04/13/22 modafiniL [Provigil] 200 mg PO BID 04/11/22 04/13/22 Sulfamethox/Trimeth 800/160 1 each PO BID #20 tablet 05/06/22 [Bactrim Ds 800/160] - Allergies Allergies/Adverse Reactions: Allergies Allergy/AdvReac Type Severity Reaction Status Date / Time No Known Drug Allergies Allergy Verified 05/06/22 14:03 - Social History Does the pt smoke?: No Smoking Status: Never smoker Does the pt drink ETOH?: No Does the pt have substance abuse?: No - Immunizations Immunizations are current?: Yes - POLST Patient has POLST: No PD ED PE NORMAL - Vitals Vital signs reviewed: Yes - General General: Alert and oriented X 3, No acute distress, Well developed/nourished - HEENT HEENT: Atraumatic, Pharynx benign - Neck Neck: Supple, no meningeal sign, No adenopathy, No JVD - Cardiac Cardiac: RRR, No murmur - Respiratory Respiratory: No respiratory distress, Clear bilaterally - Abdomen Abdomen: Normal bowel sounds, Soft, Non tender, Non distended - Back Back: No CVA TTP, No spinal TTP - Derm Derm: Normal color, Warm and dry, No rash - Extremities Extremities: No deformity, No edema - Neuro Neuro: Alert and oriented X 3 Eye Opening: Spontaneous Motor: Obeys Commands Verbal: Oriented GCS Score: 15 - Psych Psych: Normal mood, Normal affect Results - Vitals Vitals: Vital Signs - 24 hr 05/08/22 15:48 Temperature 37.0 C Heart Rate 88 Respiratory 16 Rate Blood Pressure 134/84 H O2 Saturation 99 Oxygen O2 Source Room air - Labs Labs: Laboratory Tests 05/08/22 05/08/22 05/08/22 16:30 16:30 16:30 WBC 5.7 RBC 4.69 L Hgb 13.5 L Hct 40.9 L MCV 87.2 MCH 28.8 MCHC 33.0 RDW 13.8 Plt Count 161 MPV 9.8 Neut # (Auto) 4.2 Lymph # (Auto) 0.9 L [place] # (Auto) 0.5 Eos # (Auto) 0.1 Baso # (Auto) 0.0 Absolute Nucleated RBC 0.00 Nucleated RBC % 0.0 Sodium 133 L Potassium 3.1 L Chloride 95 L Carbon Dioxide 26 Anion Gap 12.0 BUN 17 Creatinine 1.3 H Estimated GFR (MDRD) 54 L Glucose 135 H Lactic Acid 1.0 Calcium 9.2 Total Bilirubin 1.6 H AST 511 H ALT 240 H Alkaline Phosphatase 91 Total Protein 7.6 Albumin 3.2 Globulin 4.4 H Albumin/Globulin Ratio 0.7 L Lipase 57 H PD MEDICAL DECISION MAKING - ED course Complexity details: reviewed old records, reviewed results, re-evaluated patient, considered differential, d/w patient, d/w family ED course: This is a very pleasant 72-year-old male with a past medical history as noted above who presented due to positive blood cultures. The patient was seen by me 2 days ago and blood cultures revealed E. coli, likely ESBL. His urine culture was also ESBL positive. He had been on Bactrim however given his bacteremia, he was called to return to the hospital. The patient was started on meropenem IV. His labs today are stable aside from an elevation in his LFTs. Bili is only slightly up but AST and ALT are elevated however patient does not have any new right upper quadrant pain and is actually tolerating p.o. today so I Think this is unlikely related to his biliary stent. I will review with his surgeon at [facility] if possible. This may be related to antibiotic use or lack of p.o. intake over the last several days. Patient clinically appears much better than he did the other day and overall is feeling somewhat better so I am hopeful that follow-up blood cultures will be negative and the patient will be able to discharge home on p.o. antibiotics when stable, and follow-up with his surgeon on May 16 for removal of his biliary stent. He does however need ongoing IV antibiotics until he has negative blood cultures therefore we will see if we can admit to the hospital here for bacteremia and IV antibiotics.
[2022-05-08] MEDS ORDERED: SODIUM CHLORIDE 0.9% 1,000 ML IV STA (17:59)
[2022-05-09] MEDS: MEROPENEM 1 GM in SODIUM CHLORIDE 0.9% MINIBAG 100 ML IV SCH ×3 (00:42→17:34)
[2022-05-09 06:50] LABS: BASOPHILS % (AUTO) 0.5 %; EOSINOPHILS # (AUTO) 0.1 10^3/uL (0.0-0.7); EOSINOPHILS % (AUTO) 1.1 %; HCT - HEMATOCRIT 35.3 % (42.0-52.0); HGB - HEMOGLOBIN 11.9 g/dL (14.0-18.0); LYMPHOCYTES # (AUTO) 0.8 10^3/uL (1.5-3.5); LYMPHOCYTES % (AUTO) 16.9 %; MEAN CORPUSCULAR HEMOGLOBIN 29.4 pg (27.0-31.0); MEAN CORPUSCULAR HGB CONC 33.7 g/dL (32.0-36.0); MEAN CORPUSCULAR VOLUME 87.2 fL (80.0-94.0); MEAN PLATELET VOLUME 10.1 fL (7.4-11.4); MONOCYTES # (AUTO) 0.6 10^3/uL (0.0-1.0); MONOCYTES % (AUTO) 12.9 %; NEUTROPHILS % (AUTO) 68.1 %; PLT - PLATELET COUNT 122 10^3/uL (130-450); RED BLOOD COUNT 4.05 10^6/uL (4.70-6.10); RED CELL DISTRIBUTION WIDTH 13.8 % (12.0-15.0); WHITE BLOOD COUNT 4.4 x10^3/uL (4.8-10.8)
[2022-05-09 07:04] LABS: ALBUMIN 2.9 g/dL (3.2-5.5); ALBUMIN/GLOBULIN RATIO 0.8 (1.0-2.2); CALCIUM 8.5 mg/dL (8.5-10.3); CREATININE 1.1 mg/dL (0.6-1.2); POTASSIUM 3.3 mmol/L (3.5-5.0); TOTAL PROTEIN 6.5 g/dL (6.7-8.2)
[2022-05-10] MEDS: MEROPENEM 1 GM in SODIUM CHLORIDE 0.9% MINIBAG 100 ML IV SCH ×2 (01:03→09:50)
[2022-05-10 04:53] LABS: BASOPHILS % (AUTO) 0.5 %; EOSINOPHILS # (AUTO) 0.1 10^3/uL (0.0-0.7); EOSINOPHILS % (AUTO) 2.4 %; HCT - HEMATOCRIT 39.4 % (42.0-52.0); HGB - HEMOGLOBIN 13.2 g/dL (14.0-18.0); LYMPHOCYTES # (AUTO) 1.3 10^3/uL (1.5-3.5); MEAN CORPUSCULAR HGB CONC 33.5 g/dL (32.0-36.0); MEAN CORPUSCULAR VOLUME 86.6 fL (80.0-94.0); MEAN PLATELET VOLUME 10.3 fL (7.4-11.4); MONOCYTES # (AUTO) 0.6 10^3/uL (0.0-1.0); MONOCYTES % (AUTO) 10.3 %; NEUTROPHILS # (AUTO) 3.7 10^3/uL (1.5-6.6); NEUTROPHILS % (AUTO) 64.1 %; PLT - PLATELET COUNT 176 10^3/uL (130-450); RED BLOOD COUNT 4.55 10^6/uL (4.70-6.10); RED CELL DISTRIBUTION WIDTH 13.6 % (12.0-15.0); WHITE BLOOD COUNT 5.8 x10^3/uL (4.8-10.8)
[2022-05-10 05:02] LABS: ALBUMIN/GLOBULIN RATIO 0.8 (1.0-2.2); CALCIUM 9.1 mg/dL (8.5-10.3); POTASSIUM 3.2 mmol/L (3.5-5.0)
[2022-05-10] MEDS ORDERED: POTASSIUM CHLORIDE 20 MEQ TABLET PO STA (11:39)
--- NOTE | 2022-05-10 12:09 | ED Physician Documentation ---
ED Addendum - Addendum Addendum: 05/10/22 12:05 Patient has been doing well since Starting on meropenem for his bacteremia. His follow-up blood culture drawn on 05/08 is negative. His labs have been stable. I discussed today with infectious disease physician On-call at [facility] and he did recommend that patient continue on IV antibiotics rather than being discharged on Bactrim given his age and concern for renal dysfunction. He suggested that if the patient is stable and would qualify for discharge that we could consider changing to ertapenem 1 g daily and he could come into the hospital or infusion clinic daily for infusions for now until follow-up with PCP under infectious disease as an outpatient. The patient will likely need at least 7 days of IV antibiotics. I discussed with the ED attending, Dr. Edwards, and he suggested we can see the patient back here tomorrow in the ER for infusion and then ideally Arrange antibiotics through the [facility] clinic and patient's primary Care provider who is JOSEFINA Pepper. I have reached out to Dr. Lopez, the anesthesiologist, who is very kindly agreed to come in today on a Thursday to place a midline in order to help us discharge this patient. I have explained all instructions to the patient and his and they are pleased that he is able to go home and understand the need for continued daily IV antibiotic infusions. Patient has no new concerns today, is feeling well, has had stable vital signs, has not been eating well. They have follow-up on Thursday with Rachell Sorensen to discuss removal of the biliary stent ideally sometime next week.
[2022-05-10] MEDS ORDERED: ERTAPENEM 1 GM in SODIUM CHLORIDE 0.9% MINIBAG 100 ML IV ONE (14:00)
--- NOTE | 2022-05-10 14:55 | XRAY Report ---
PROCEDURE: Chest for Line Placement INDICATIONS: Status post PICC placement TECHNIQUE: One view of the chest was acquired. COMPARISON: None. FINDINGS: Right upper extremity PICC terminates in the inferior aspect of the SVC. Median sternotomy changes ag ain noted. Heart size normal. No acute airspace opacity, pleural effusion, or pneumothorax. IMPRESSION: Appropriate position of right upper extremity PICC. Reviewed by: Ferdinand Rodríguez MD on 05/10/2022 2:53 PM PST Approved by: Ferdinand Rodríguez MD on 05/10/2022 2:53 PM PST Station ID: [id number]
--- NOTE | 2022-05-10 15:08 | ANESTHESIA PROCEDURE NOTE ---
Anesth Central Line Template - Central Line Central Line Preparation: Consent Obtained Central line location: Right Brachial Central line type: PICC Single Lumen Central line catheter tip site resides: Superior vena cava (SVC) Central line aftercare: Secured, Placement confirmed, No pneumothorax, No complications, Bundle checklist complete, Pt tolerated well
--- NOTE | 2022-05-10 15:10 | CONSULTATION NOTE ---
Consultation Report: consulted by ED provider for PICC line placement. Informed consent obtained, all questions answered. RUE PICC line placed with US guidance, attempt x1, sterile technique maintained. secured at 41cm. Placement verified with portable CXR. Pt tolerated well. NAC
[2022-05-10 16:21] VITALS: BP 148/89
== END 2022-05-10 16:21 | disposition home or self-care (01) ==
LOC: ED 15:40
DX: R78.81 Bacteremia (principal); R79.89 Other specified abnormal findings of blood chemistry
CPT/HCPCS: 36415; 80053; 83605; 83690; 85025; 87040; 96365; 96366; 96375; 99284; 99285; A9270; J1335; J2185

== ENCOUNTER 2022-05-11 14:43 | Emergency (ER) | payer MEDICARE, OTHER ==
--- NOTE | 2022-05-11 15:12 | ED Physician Documentation ---
History of Present Illness - Stated complaint Stated Complaint: INFUSION SHOT - Chief complaint Chief Complaint: General - History obtained from History obtained from: Patient - Additonal information Additional information: 72-year-old gentleman with recent biliary stent placement was initially seen on May 06 with a UTI and ended up growing ESBL E. coli out of both urine and blood cultures. He was readmitted here on the first and was on 3 days of meropenem and now has a midline catheter and returns as recommended for repeat dosing of ertapenem which he will need for 7 days total ending May 14. He has had no fevers or chills and feels well, but feels out of his normal sleep- wake cycle and request something to help him sleep tonight. Review of Systems Constitutional: denies: Fever, Chills Cardiac: reports: Reviewed and negative Respiratory: reports: Reviewed and negative PD PAST MEDICAL HISTORY - Past Medical History Cardiovascular: Hypertension, High cholesterol, Angina, [place] Respiratory: Sleep apnea, CPAP use Endocrine/Autoimmune: None GI: Other : None HEENT: None Psych: Depression Musculoskeletal: Fibromyalgia, Chronic back pain Derm: None - Past Surgical History Past Surgical History: Yes General: Other Ortho: Arthroscopic surgery Cardiovascular: CABG HEENT: Tonsil/Adenoidectomy Derm: Skin cancer surgery - Present Medications Home Medications: Ambulatory Orders Medication Instructions Recorded Confirmed Cetirizine [ZyrTEC] 10 mg PO DAILY 08/18/13 05/09/22 Furosemide 20 mg PO DAILY 08/18/13 05/09/22 Levothyroxine [Synthroid] 175 mcg PO DAILY 08/18/13 05/09/22 Losartan [Cozaar] 50 mg PO BID 08/18/13 05/09/22 Potassium Chloride [K-Dur] 20 meq PO BID 08/18/13 05/09/22 lamoTRIgine [LaMICtal] 200 mg PO QPM 08/18/13 05/09/22 Cyanocobalamin (Vitamin B-12) 1,000 mcg PO DAILY 02/10/14 05/09/22 [B-12] Fluticasone [Flonase] 1 sprays MIKEY DAILY PRN 02/10/14 05/09/22 Multivitamin [Multivitamins] 1 each PO DAILY 02/10/14 05/09/22 Ubidecarenone [Co Q-10] 100 mg PO DAILY 02/10/14 05/09/22 Cyclobenzaprine [Flexeril] 10 mg PO TID PRN 05/18/17 05/09/22 Ropinirole HCl 6 mg PO BID 05/18/17 05/09/22 Clopidogrel [Plavix] 75 mg PO DAILY 03/19/19 05/09/22 Gabapentin 4 cap PO BID 03/19/19 05/09/22 traZODone [Desyrel] 50 mg PO HS 03/19/19 05/09/22 Acetylcysteine [Nac] 600 mg PO DAILY 04/11/22 05/09/22 Albuterol Sulfate [Proair 1 - 2 puffs IH Q4HR PRN 04/11/22 05/09/22 Digihaler] Alpha Lipoic Acid 600 mg PO BID 04/11/22 05/09/22 Calcium Carbonate [Calcium Antacid] 200 mg PO TIDWM 04/11/22 05/09/22 Cholecalciferol (Vitamin D3) 3,000 mcg PO DAILY 04/11/22 05/09/22 [Vitamin D3] Duloxetine HCl [Cymbalta] 60 mg PO DAILY 04/11/22 05/09/22 Finasteride [Proscar] 5 mg PO DAILY 04/11/22 05/09/22 Fluticasone 44 Mcg [Flovent] 1 puffs INH PRN PRN 04/11/22 05/09/22 Metformin HCl 1,000 mg PO BID 04/11/22 05/09/22 Metronidazole 1% Gel [Metrogel] 0 gm TOP PRN PRN 04/11/22 05/09/22 Nystatin/Triamcin 0 gm TP PRN PRN 04/11/22 05/09/22 [Nystatin-Triamcinolone Ointm] Pantoprazole [Protonix] 40 mg PO BID 04/11/22 05/09/22 Rosuvastatin Calcium [Crestor] 40 mg PO DAILY PM 04/11/22 05/09/22 Tamsulosin [Flomax] 2 cap PO DAILY PM 04/11/22 05/09/22 modafiniL [Provigil] 200 mg PO BID 04/11/22 05/09/22 Dulaglutide [Trulicity] 0.75 mg SQ 05/09/22 Ertapenem [INVanz] 1 gm IV Q24H #1 05/10/22 LORazepam [Ativan] 1 mg PO QPM PRN #3 tablet 05/11/22 - Allergies Allergies/Adverse Reactions: Allergies Allergy/AdvReac Type Severity Reaction Status Date / Time No Known Drug Allergies Allergy Verified 05/11/22 15:02 - Social History Does the pt smoke?: No Smoking Status: Never smoker Does the pt drink ETOH?: No Does the pt have substance abuse?: No - Immunizations Immunizations are current?: Yes - POLST Patient has POLST: No PD ED PE NORMAL - Vitals Vital signs reviewed: Yes - General General: Alert and oriented X 3, No acute distress - Abdomen Abdomen: Normal bowel sounds, Soft, Non tender - Derm Derm: Normal color, Warm and dry - Neuro Neuro: Alert and oriented X 3, Normal speech Results - Vitals Vitals: Vital Signs - 24 hr 05/11/22 14:59 Temperature 36.4 C L Heart Rate 78 Respiratory 16 Rate Blood Pressure 120/83 H O2 Saturation 100 Oxygen O2 Source Room air PD MEDICAL DECISION MAKING - ED course ED course: 72-year-old gentleman presents for repeat dosing of ertapenem, he will need a total of 3 more days worth through the seventh. He appears well and has had no systemic symptoms of infection at this point. He did request something for sleep and was given prescription for 3 lorazepam to take at night but we also talked about the importance of sleep hygiene. Departure - Departure Disposition: 01 Home, Self Care Clinical Impression: E coli bacteremia Condition: Good Record reviewed to determine appropriate education?: Yes Prescriptions: LORazepam [Ativan] 1 mg PO QPM PRN #3 tablet PRN Reason: sleep Comments: I sent your prescription electronically to [facility] in [place]. I did send a message to your physicians project assistant to see if we can do subsequent dosing of ertapenem through the [place] I have not heard back from her yet. If you have not heard back from her by midday tomorrow return to the emergency department for repeat dosing around the same time.
[2022-05-11] MEDS ORDERED: ERTAPENEM 1 GM in SODIUM CHLORIDE 0.9% MINIBAG 100 ML IV ONE (15:30)
[2022-05-11 16:08] VITALS: BP 128/83
[2022-05-12] MEDS ORDERED: ERTAPENEM 1 GM in SODIUM CHLORIDE 0.9% MINIBAG 100 ML IV ONE ×2 (15:00→17:00)
== END 2022-05-11 16:10 | disposition home or self-care (01) ==
LOC: ED 14:43
DX: A49.8 Other bacterial infections of unspecified site (principal)
CPT/HCPCS: 96365; 99283; 99284; J1335

== ENCOUNTER 2022-05-12 14:42 | Emergency (ER) | payer MEDICARE, OTHER ==
[2022-05-12 14:52] VITALS: BP 139/92
--- NOTE | 2022-05-12 16:59 | ED Physician Documentation ---
History of Present Illness - Stated complaint Stated Complaint: ANTIBIOTIC SHOT/MALE - Chief complaint Chief Complaint: General - History obtained from History obtained from: Patient - Additonal information Additional information: 72-year-old gentleman returns as recommended for a dose of ertapenem for ESBL E. coli bacteremia. I had contacted his primary care PA yesterday but they have been unable to get outpatient orders as of yet for the ertapenem. He has no symptoms. No fevers or chills. Review of Systems Constitutional: denies: Fever, Chills Nose: reports: Reviewed and negative Cardiac: reports: Reviewed and negative Respiratory: reports: Reviewed and negative PD PAST MEDICAL HISTORY - Past Medical History Cardiovascular: Hypertension, High cholesterol, Angina, [place] Respiratory: Sleep apnea, CPAP use Endocrine/Autoimmune: None GI: Other : None HEENT: None Psych: Depression Musculoskeletal: Fibromyalgia, Chronic back pain Derm: None - Past Surgical History Past Surgical History: Yes General: Other Ortho: Arthroscopic surgery Cardiovascular: CABG HEENT: Tonsil/Adenoidectomy Derm: Skin cancer surgery - Present Medications Home Medications: Ambulatory Orders Medication Instructions Recorded Confirmed Cetirizine [ZyrTEC] 10 mg PO DAILY 08/18/13 05/09/22 Furosemide 20 mg PO DAILY 08/18/13 05/09/22 Levothyroxine [Synthroid] 175 mcg PO DAILY 08/18/13 05/09/22 Losartan [Cozaar] 50 mg PO BID 08/18/13 05/09/22 Potassium Chloride [K-Dur] 20 meq PO BID 08/18/13 05/09/22 lamoTRIgine [LaMICtal] 200 mg PO QPM 08/18/13 05/09/22 Cyanocobalamin (Vitamin B-12) 1,000 mcg PO DAILY 02/10/14 05/09/22 [B-12] Fluticasone [Flonase] 1 sprays MIKEY DAILY PRN 02/10/14 05/09/22 Multivitamin [Multivitamins] 1 each PO DAILY 02/10/14 05/09/22 Ubidecarenone [Co Q-10] 100 mg PO DAILY 02/10/14 05/09/22 Cyclobenzaprine [Flexeril] 10 mg PO TID PRN 05/18/17 05/09/22 Ropinirole HCl 6 mg PO BID 05/18/17 05/09/22 Clopidogrel [Plavix] 75 mg PO DAILY 03/19/19 05/09/22 Gabapentin 4 cap PO BID 03/19/19 05/09/22 traZODone [Desyrel] 50 mg PO HS 03/19/19 05/09/22 Acetylcysteine [Nac] 600 mg PO DAILY 04/11/22 05/09/22 Albuterol Sulfate [Proair 1 - 2 puffs IH Q4HR PRN 04/11/22 05/09/22 Digihaler] Alpha Lipoic Acid 600 mg PO BID 04/11/22 05/09/22 Calcium Carbonate [Calcium Antacid] 200 mg PO TIDWM 04/11/22 05/09/22 Cholecalciferol (Vitamin D3) 3,000 mcg PO DAILY 04/11/22 05/09/22 [Vitamin D3] Duloxetine HCl [Cymbalta] 60 mg PO DAILY 04/11/22 05/09/22 Finasteride [Proscar] 5 mg PO DAILY 04/11/22 05/09/22 Fluticasone 44 Mcg [Flovent] 1 puffs INH PRN PRN 04/11/22 05/09/22 Metformin HCl 1,000 mg PO BID 04/11/22 05/09/22 Metronidazole 1% Gel [Metrogel] 0 gm TOP PRN PRN 04/11/22 05/09/22 Nystatin/Triamcin 0 gm TP PRN PRN 04/11/22 05/09/22 [Nystatin-Triamcinolone Ointm] Pantoprazole [Protonix] 40 mg PO BID 04/11/22 05/09/22 Rosuvastatin Calcium [Crestor] 40 mg PO DAILY PM 04/11/22 05/09/22 Tamsulosin [Flomax] 2 cap PO DAILY PM 04/11/22 05/09/22 modafiniL [Provigil] 200 mg PO BID 04/11/22 05/09/22 Dulaglutide [Trulicity] 0.75 mg SQ 05/09/22 Ertapenem [INVanz] 1 gm IV Q24H #1 05/10/22 LORazepam [Ativan] 1 mg PO QPM PRN #3 tablet 05/11/22 - Allergies Allergies/Adverse Reactions: Allergies Allergy/AdvReac Type Severity Reaction Status Date / Time No Known Drug Allergies Allergy Verified 05/12/22 14:52 - Social History Does the pt smoke?: No Smoking Status: Never smoker Does the pt drink ETOH?: No Does the pt have substance abuse?: No - Immunizations Immunizations are current?: Yes - POLST Patient has POLST: No PD ED PE NORMAL - Vitals Vital signs reviewed: Yes - General General: Alert and oriented X 3, No acute distress, Well developed/nourished - Neuro Neuro: Alert and oriented X 3, Normal speech - Psych Psych: Normal mood, Normal affect Results - Vitals Vitals: Vital Signs - 24 hr 05/12/22 14:50 Temperature 35.9 C L Heart Rate 75 Respiratory 16 Rate Blood Pressure 139/92 H O2 Saturation 100 Oxygen O2 Source Room air PD MEDICAL DECISION MAKING - ED course ED course: 72-year-old gentleman presents as instructed for a dose of ertapenem for E. coli bacteremia. We had tried yesterday to get his PCP to write [facility] orders, but it is stuck in the referral process and it is likely he will return tomorrow for the seventh and final dose. Departure - Departure Disposition: 01 Home, Self Care Clinical Impression: E coli bacteremia Condition: Good Record reviewed to determine appropriate education?: Yes Comments: Return tomorrow again for the last dose of IV ertapenem. That is unless JOSEFINA Pepper's office can get the referral for the [facility] before then. Discharge Date/Time: 05/12/22 17:40
== END 2022-05-12 17:40 | disposition home or self-care (01) ==
LOC: ED 14:42
DX: A49.8 Other bacterial infections of unspecified site (principal)
CPT/HCPCS: 99281; 99282

== ENCOUNTER 2022-05-13 14:48 | Emergency (ER) | payer MEDICARE, OTHER ==
--- NOTE | 2022-05-13 15:14 | ED Physician Documentation ---
History of Present Illness - Stated complaint Stated Complaint: INFUSION SHOT - Chief complaint Chief Complaint: General - History obtained from History obtained from: Patient - History of Present Illness Timing: Today Pain level max: 0 Pain level now: 0 - Additonal information Additional information: 72-year-old male here for his seventh infusion of ertapenem for ESBL E. coli. He is asymptomatic. No fevers. No chills. Nothing makes it better or worse. Review of Systems Constitutional: denies: Fever, Chills Respiratory: denies: Cough GI: denies: Nausea, Vomiting, Diarrhea Skin: denies: Rash Musculoskeletal: denies: Neck pain, Back pain Neurologic: denies: Headache PD PAST MEDICAL HISTORY - Past Medical History Cardiovascular: Hypertension, High cholesterol, Angina, [place] Respiratory: Sleep apnea, CPAP use Endocrine/Autoimmune: None GI: Other : None HEENT: None Psych: Depression Musculoskeletal: Fibromyalgia, Chronic back pain Derm: None - Past Surgical History Past Surgical History: Yes General: Other Ortho: Arthroscopic surgery Cardiovascular: CABG HEENT: Tonsil/Adenoidectomy Derm: Skin cancer surgery - Present Medications Home Medications: Ambulatory Orders Medication Instructions Recorded Confirmed Cetirizine [ZyrTEC] 10 mg PO DAILY 08/18/13 05/09/22 Furosemide 20 mg PO DAILY 08/18/13 05/09/22 Levothyroxine [Synthroid] 175 mcg PO DAILY 08/18/13 05/09/22 Losartan [Cozaar] 50 mg PO BID 08/18/13 05/09/22 Potassium Chloride [K-Dur] 20 meq PO BID 08/18/13 05/09/22 lamoTRIgine [LaMICtal] 200 mg PO QPM 08/18/13 05/09/22 Cyanocobalamin (Vitamin B-12) 1,000 mcg PO DAILY 02/10/14 05/09/22 [B-12] Fluticasone [Flonase] 1 sprays MIKEY DAILY PRN 02/10/14 05/09/22 Multivitamin [Multivitamins] 1 each PO DAILY 02/10/14 05/09/22 Ubidecarenone [Co Q-10] 100 mg PO DAILY 02/10/14 05/09/22 Cyclobenzaprine [Flexeril] 10 mg PO TID PRN 05/18/17 05/09/22 Ropinirole HCl 6 mg PO BID 05/18/17 05/09/22 Clopidogrel [Plavix] 75 mg PO DAILY 03/19/19 05/09/22 Gabapentin 4 cap PO BID 03/19/19 05/09/22 traZODone [Desyrel] 50 mg PO HS 03/19/19 05/09/22 Acetylcysteine [Nac] 600 mg PO DAILY 04/11/22 05/09/22 Albuterol Sulfate [Proair 1 - 2 puffs IH Q4HR PRN 04/11/22 05/09/22 Digihaler] Alpha Lipoic Acid 600 mg PO BID 04/11/22 05/09/22 Calcium Carbonate [Calcium Antacid] 200 mg PO TIDWM 04/11/22 05/09/22 Cholecalciferol (Vitamin D3) 3,000 mcg PO DAILY 04/11/22 05/09/22 [Vitamin D3] Duloxetine HCl [Cymbalta] 60 mg PO DAILY 04/11/22 05/09/22 Finasteride [Proscar] 5 mg PO DAILY 04/11/22 05/09/22 Fluticasone 44 Mcg [Flovent] 1 puffs INH PRN PRN 04/11/22 05/09/22 Metformin HCl 1,000 mg PO BID 04/11/22 05/09/22 Metronidazole 1% Gel [Metrogel] 0 gm TOP PRN PRN 04/11/22 05/09/22 Nystatin/Triamcin 0 gm TP PRN PRN 04/11/22 05/09/22 [Nystatin-Triamcinolone Ointm] Pantoprazole [Protonix] 40 mg PO BID 04/11/22 05/09/22 Rosuvastatin Calcium [Crestor] 40 mg PO DAILY PM 04/11/22 05/09/22 Tamsulosin [Flomax] 2 cap PO DAILY PM 04/11/22 05/09/22 modafiniL [Provigil] 200 mg PO BID 04/11/22 05/09/22 Dulaglutide [Trulicity] 0.75 mg SQ 05/09/22 Ertapenem [INVanz] 1 gm IV Q24H #1 05/10/22 LORazepam [Ativan] 1 mg PO QPM PRN #3 tablet 05/11/22 - Allergies Allergies/Adverse Reactions: Allergies Allergy/AdvReac Type Severity Reaction Status Date / Time No Known Drug Allergies Allergy Verified 05/12/22 14:52 - Social History Does the pt smoke?: No Smoking Status: Never smoker Does the pt drink ETOH?: No Does the pt have substance abuse?: No - Immunizations Immunizations are current?: Yes - POLST Patient has POLST: No PD ED PE NORMAL - Vitals Vital signs reviewed: Yes - General General: Alert and oriented X 3, No acute distress - HEENT HEENT: Moist mucous membranes - Neck Neck: Supple, no meningeal sign - Cardiac Cardiac: RRR, Strong equal pulses - Respiratory Respiratory: No respiratory distress, Clear bilaterally - Abdomen Abdomen: Soft, Non tender, Non distended - Derm Derm: Warm and dry - Extremities Extremities: No edema - Neuro Neuro: Alert and oriented X 3 - Psych Psych: Normal mood, Normal affect Results - Vitals Vitals: Oxygen O2 Source Room air PD MEDICAL DECISION MAKING - ED course Complexity details: reviewed results, re-evaluated patient, considered differential, d/w patient ED course: Patient received his last dose of ertapenem here. PICC line was pulled. Confirmed PICC line length with the insertion note. The PICC line came out in a single piece. Matched the length of input. Patient will follow up with his PCP as needed for further care. Patient asymptomatic. Patient counseled regarding signs and symptoms for which I believe and urgent re-evaluation would be necessary. Patient with good understanding of and agreement to plan and is comfortable going home at this time This document was made in part using voice recognition software. While efforts are made to proofread this document, sound alike and grammatical errors may occur. Departure - Departure Disposition: 01 Home, Self Care Clinical Impression: Bacteremia Condition: Good Instructions: Ertapenem injection Follow-Up: Muriel Pepper PA-C [Primary Care Provider] - Comments: Please follow-up with your doctor as needed for further care. Return if you worsen. Discharge Date/Time: 05/13/22 17:22
[2022-05-13] MEDS ORDERED: ERTAPENEM 1 GM in SODIUM CHLORIDE 0.9% MINIBAG 100 ML IV ONE (16:00)
[2022-05-13 17:20] VITALS: BP 110/75
== END 2022-05-13 17:22 | disposition home or self-care (01) ==
LOC: ED 14:48
DX: R78.81 Bacteremia (principal)
CPT/HCPCS: 96365; 99282; 99284; J1335

== ENCOUNTER 2022-05-15 15:00 | Outpatient (CLI) | payer MEDICARE, OTHER ==
[2022-05-15 17:52] LABS: ALBUMIN 3.4 g/dL (3.2-5.5); BILIRUBIN,TOTAL 0.6 mg/dL (0.2-1.0); CALCIUM 9.4 mg/dL (8.5-10.3); TOTAL PROTEIN 6.7 g/dL (6.7-8.2)
[2022-05-15 17:58] LABS: BASOPHILS % (AUTO) 0.5 %; EOSINOPHILS # (AUTO) 0.2 10^3/uL (0.0-0.7); EOSINOPHILS % (AUTO) 2.9 %; HCT - HEMATOCRIT 38.3 % (42.0-52.0); HGB - HEMOGLOBIN 12.1 g/dL (14.0-18.0); LYMPHOCYTES # (AUTO) 1.6 10^3/uL (1.5-3.5); LYMPHOCYTES % (AUTO) 25.3 %; MEAN CORPUSCULAR HEMOGLOBIN 29.1 pg (27.0-31.0); MEAN CORPUSCULAR HGB CONC 31.6 g/dL (32.0-36.0); MEAN CORPUSCULAR VOLUME 92.1 fL (80.0-94.0); MEAN PLATELET VOLUME 9.9 fL (7.4-11.4); MONOCYTES # (AUTO) 0.4 10^3/uL (0.0-1.0); MONOCYTES % (AUTO) 5.7 %; NEUTROPHILS % (AUTO) 64.5 %; PLT - PLATELET COUNT 244 10^3/uL (130-450); RED BLOOD COUNT 4.16 10^6/uL (4.70-6.10); RED CELL DISTRIBUTION WIDTH 14.2 % (12.0-15.0); WHITE BLOOD COUNT 6.2 x10^3/uL (4.8-10.8)
== END 2022-05-15 15:01 | disposition home or self-care (01) ==
LOC: LAB.N 15:00
PROVIDERS: ATTEND Nurse Practitioner Family
DX: I10 Essential (primary) hypertension (principal); N39.0 Urinary tract infection, site not specified; K80.50 Calculus of bile duct without cholangitis or cholecystitis without obstruction; E11.9 Type 2 diabetes mellitus without complications; K80.20 Calculus of gallbladder without cholecystitis without obstruction
CPT/HCPCS: 36415; 80053; 85025

== ENCOUNTER 2022-05-19 08:00 | Outpatient (CLI) | payer MEDICARE, OTHER | END 2022-05-19 23:58 | disposition home or self-care (01) | LOC: LAB.N 08:00 | PROVIDERS: ATTEND Nurse Practitioner | DX: R39.15 Urgency of urination (principal) | CPT/HCPCS: 81001; 87086 ==

== ENCOUNTER 2022-05-19 15:54 | Outpatient (CLI) | payer MEDICARE, OTHER ==
[2022-05-19 16:50] LABS: BASOPHILS % (AUTO) 0.4 %; EOSINOPHILS # (AUTO) 0.2 10^3/uL (0.0-0.7); EOSINOPHILS % (AUTO) 1.5 %; HCT - HEMATOCRIT 40.8 % (42.0-52.0); HGB - HEMOGLOBIN 12.9 g/dL (14.0-18.0); LYMPHOCYTES # (AUTO) 1.3 10^3/uL (1.5-3.5); LYMPHOCYTES % (AUTO) 12.3 %; MEAN CORPUSCULAR HEMOGLOBIN 28.7 pg (27.0-31.0); MEAN CORPUSCULAR HGB CONC 31.6 g/dL (32.0-36.0); MEAN CORPUSCULAR VOLUME 90.9 fL (80.0-94.0); MEAN PLATELET VOLUME 9.9 fL (7.4-11.4); MONOCYTES # (AUTO) 0.4 10^3/uL (0.0-1.0); MONOCYTES % (AUTO) 3.8 %; NEUTROPHILS # (AUTO) 8.7 10^3/uL (1.5-6.6); NEUTROPHILS % (AUTO) 81.5 %; PLT - PLATELET COUNT 226 10^3/uL (130-450); RED BLOOD COUNT 4.49 10^6/uL (4.70-6.10); RED CELL DISTRIBUTION WIDTH 14.3 % (12.0-15.0); WHITE BLOOD COUNT 10.7 x10^3/uL (4.8-10.8)
[2022-05-19 16:59] LABS: ALBUMIN 3.8 g/dL (3.2-5.5); ALBUMIN/GLOBULIN RATIO 1.1 (1.0-2.2); BILIRUBIN,TOTAL 0.8 mg/dL (0.2-1.0); CREATININE 0.9 mg/dL (0.6-1.2); POTASSIUM 3.9 mmol/L (3.5-5.0); TOTAL PROTEIN 7.2 g/dL (6.7-8.2)
[2022-05-19 17:02] LABS: BILIRUBIN,URINE NEGATIVE (NEGATIVE); GLUCOSE, URINE (UA) NEGATIVE (NEGATIVE); KETONES,URINE (UA) TRACE mg/dL (NEGATIVE); LEUKOCYTE ESTERASE, URINE LARGE (NEGATIVE); NITRITE,URINE NEGATIVE (NEGATIVE); OCCULT BLOOD,URINE LARGE (NEGATIVE); PROTEIN,URINE 100 mg/dL (NEGATIVE); UROBILINOGEN,URINE 0.2 (NORMAL) E.U./dL (NORMAL)
[2022-05-19 17:05] LABS: CLARITY,URINE CLOUDY (CLEAR)
[2022-05-19 17:17] LABS: BACTERIA,URINE Moderate /HPF (None Seen); SQUAMOUS EPITHELIAL CELL,UR NONE SEEN (<= Few); WBC,URINE >25 /HPF (0-3)
== END 2022-05-19 15:55 | disposition home or self-care (01) ==
LOC: LAB 15:54
PROVIDERS: ATTEND Nurse Practitioner
DX: R39.15 Urgency of urination (principal)
CPT/HCPCS: 36415; 80053; 81001; 85025; 87040; 87086; 87181

== ENCOUNTER 2022-09-11 10:35 | Outpatient (CLI) | payer MEDICARE, OTHER ==
[2022-09-11 17:45] LABS: ALBUMIN 3.9 g/dL (3.2-5.5); ALBUMIN/GLOBULIN RATIO 1.3 (1.0-2.2); BILIRUBIN,TOTAL 0.8 mg/dL (0.2-1.0); CALCIUM 9.4 mg/dL (8.5-10.3); CREATININE 0.8 mg/dL (0.6-1.2); MAGNESIUM 2.3 mg/dL (1.7-2.8); POTASSIUM 4.2 mmol/L (3.5-5.0); TOTAL PROTEIN 6.8 g/dL (6.7-8.2)
== END 2022-09-11 10:36 | disposition home or self-care (01) ==
LOC: LAB.N 10:35
PROVIDERS: ATTEND Specialist
DX: I10 Essential (primary) hypertension (principal); E78.2 Mixed hyperlipidemia
CPT/HCPCS: 36415; 80053; 83704; 83735

== ENCOUNTER 2022-09-16 16:43 | Outpatient (CLI) | payer MEDICARE, OTHER ==
--- NOTE | 2022-09-17 09:01 | XRAY Report ---
PROCEDURE: Chest 2 View X-Ray INDICATIONS: COUGH TECHNIQUE: 2 views of the chest were acquired. COMPARISON: None. FINDINGS: Surgical changes and devices: None. Lungs and pleura: No pleural effusions or pneumothorax. Lungs are clear. Mediastinum: Mediastinal contours appear normal. Heart size is normal. Bones and chest wall: No suspicious bony lesions. Overlying soft tissues appear unremarkable. IMPRESSION: No acute cardiopulmonary process. Reviewed by: Antonino Nicole on 09/17/2022 9:00 AM PDT Approved by: Antonino Nicole on 09/17/2022 9:00 AM PDT Station ID: [id number]
== END 2022-09-16 16:44 | disposition home or self-care (01) ==
LOC: DI 16:43
PROVIDERS: ATTEND Physician Assistant Medical
DX: R05.9 Cough, unspecified (principal)

== ENCOUNTER 2022-11-06 08:00 | Outpatient (CLI) | payer MEDICARE, OTHER | END 2022-11-06 08:01 | disposition home or self-care (01) | LOC: LAB.N 08:00 | PROVIDERS: ATTEND Physician Assistant | DX: J40 Bronchitis, not specified as acute or chronic (principal); Z20.822 Contact with and (suspected) exposure to COVID-19 ==

== ENCOUNTER 2022-11-17 10:49 | Outpatient (CLI) | payer MEDICARE, OTHER ==
--- NOTE | 2022-11-17 13:28 | XRAY Report ---
PROCEDURE: Lumbar Spine 2 View INDICATIONS: LUMBAR SPINAL STENOSIS TECHNIQUE: 3 views of the lumbar spine were acquired. COMPARISON: CT abdomen/pelvis 05/06/2022, MRI lumbar spine 11/25/2013 FINDINGS: Bones: 5 [id number] vertebrae are present. There is moderate S shaped curvature of the lumbar s pine. Mild 2 mm grade 1 retrolisthesis of L4 on L5. No vertebral body compression fractures. No susp icious bony lesions. Multilevel disc space narrowing and degenerative endplate changes. Multilevel f acet hypertrophy. Remote prior ununited left transverse process fractures appear stable. Soft tissues: Overlying bowel gas pattern is normal. No suspicious soft tissue calcifications. Rig ht upper quadrant surgical clips. IMPRESSION: 1.Moderate to severe multilevel spondylosis, which appears to have progressed when compared to the re mote prior MRI from 11/25/2013. MRI could be performed for further evaluation if indicated clinically. 2.Moderate S-shaped scoliosis. Reviewed by: Uziel Topete MD on 11/17/2022 1:26 PM PDT Approved by: Uziel Topete MD on 11/17/2022 1:26 PM PDT Station ID: [id number]
--- NOTE | 2022-11-17 13:30 | XRAY Report ---
PROCEDURE: Hip w/Pelvis 2-3V LT INDICATIONS: HIP PAIN,LEFT TECHNIQUE: AP pelvis with lateral view of the left hip. COMPARISON: None. FINDINGS: Bones: No acute fractures or dislocations. No suspicious bony lesions. Mild to moderate degenerat danielle changes are seen in the hips bilaterally with marginal osteophyte formation and mild joint space narrowing. 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 Degenerative changes and and scolioti c curvature noted in the included lumbar spine. Soft tissues: No suspicious soft tissue calcifications or masses. IMPRESSION: 1.Mild to moderate bilateral hip osteoarthrosis. 2.Osseous protuberances at the bilateral femoral head/neck junctions, which can be seen in the settin g of cam-type femoroacetabular impingement. Reviewed by: Uziel Topete MD on 11/17/2022 1:29 PM PDT Approved by: Uziel Topete MD on 11/17/2022 1:29 PM PDT Station ID: [id number]
== END 2022-11-17 10:50 | disposition home or self-care (01) ==
LOC: DI 10:49
PROVIDERS: ATTEND Physician Assistant Medical
DX: M47.816 Spondylosis without myelopathy or radiculopathy, lumbar region (principal); M41.9 Scoliosis, unspecified; M16.0 Bilateral primary osteoarthritis of hip

== ENCOUNTER 2022-12-12 10:47 | Outpatient (CLI) | payer MEDICARE, OTHER ==
[2022-12-12 13:05] LABS: CALCIUM 9.4 mg/dL (8.5-10.3); CREATININE 0.9 mg/dL (0.6-1.2)
[2022-12-12 13:32] LABS: ESTIMATED AVERAGE GLUCOSE 128 mg/dL (70-100); HEMOGLOBIN A1c% 6.1 % (4.27-6.07)
== END 2022-12-12 10:48 | disposition home or self-care (01) ==
LOC: LAB.N 10:47
PROVIDERS: ATTEND Physician Assistant Medical
DX: E11.9 Type 2 diabetes mellitus without complications (principal)
CPT/HCPCS: 36415; 80048; 83036

== ENCOUNTER 2022-12-16 13:00 | Outpatient (CLI) | payer MEDICARE, OTHER ==
--- NOTE | 2022-12-16 16:58 | MRI Report ---
PROCEDURE: LUMBAR SPINE WO INDICATIONS: lUMBAR SPINAL STENOSIS TECHNIQUE: Noncontrast sagittal T1 spin echo and T2 fast echo, sagittal STIR, axial T1 and T2 fast spin echo thr ough the lumbar spine. In cases with scoliosis, additional coronal T2 fast spin echo may be performe d. COMPARISON: X-ray lumbar spine 11/17/2022 FINDINGS: Image quality: Excellent. Alignment and Curvature: S-shaped scoliosis of the lumbar spine. Right lateral listhesis of L3 on L4. . Bone Marrow: Marrow is of normal overall signal. No acute vertebral body compression fractures. Spinal Cord: Conus medullaris terminates at the L1 level. Visualized cord demonstrates normal signa l and size. Paraspinous Soft Tissues: No paravertebral masses. Right renal cyst. Partially visualized. Collecti ng system of the left kidney. T12-L1: Small posterior disc bulge and facet arthropathy. No significant central canal or neural for aminal stenosis. L1-L2: Disc desiccation, height loss and a posterior disc bulge. Facet arthropathy. No significant central canal or neural foraminal stenosis. L2-L3: Disc desiccation and height loss with a small posterior disc bulge, and facet arthropathy r esulting in moderate narrowing of the left lateral recess with abutment of the descending left L3 ner ve root. Mild central canal stenosis. No significant neural foraminal stenosis. L3-L4: Disc desiccation, height loss and a posterior disc bulge. Facet arthropathy and thickening o f ligamentum flavum and this results in severe narrowing of the right lateral recess with impingement of the descending right L4 nerve root. Mild central canal stenosis. There is moderate narrowing of t he right neural foramina. No significant left neural foraminal narrowing. L4-L5: Disc desiccation, height loss and posterior disc bulge. Facet arthropathy and thickened liga menta flava resulting in moderate narrowing of the right lateral recess. There is mild right neural f oraminal narrowing. No left foraminal foraminal narrowing. L5-S1: Disc desiccation, height loss and a posterior disc bulge. Facet arthropathy. No significant central canal stenosis. No neural foraminal narrowing. IMPRESSION: 1.Degenerative changes of the lumbar spine with S-shaped scoliosis. No significant central canal sten osis. 2.There is severe narrowing of the right lateral recess at L3-L4 with impingement of the descending r ight L4 nerve root. Moderate right neural foraminal narrowing at L3-L4. 3.Moderate right lateral recess at L4-L5 with abutment of the descending right L5 nerve root. There i s moderate narrowing of the left lateral recess at L2-L3 with abutment of the descending left L3 nerv e root. Reviewed by: Elvin Hernandez MD on 12/16/2022 4:57 PM PDT Approved by: Elvin Hernandez MD on 12/16/2022 4:57 PM PDT Station ID: [id number]
== END 2022-12-16 13:01 | disposition home or self-care (01) ==
LOC: DI 13:00
PROVIDERS: ATTEND Physician Assistant Medical
DX: M47.26 Other spondylosis with radiculopathy, lumbar region (principal); M48.061 Spinal stenosis, lumbar region without neurogenic claudication; M41.9 Scoliosis, unspecified; M51.16 Intervertebral disc disorders with radiculopathy, lumbar region

== ENCOUNTER 2023-02-16 08:00 | Outpatient (CLI) | payer MEDICARE, OTHER | END 2023-02-16 23:59 | disposition home or self-care (01) | LOC: LAB.N 08:00 | PROVIDERS: ATTEND Physician Assistant Medical | DX: T78.1XXA Other adverse food reactions, not elsewhere classified, initial encounter (principal); R30.0 Dysuria | CPT/HCPCS: 36415; 81599; 82784; 82785; 85025; 85651; 86003; 87077; 87086; 87181 ==

== ENCOUNTER 2023-02-16 11:23 | Outpatient (CLI) | payer MEDICARE, OTHER ==
[2023-02-16 18:00] LABS: BASOPHILS % (AUTO) 0.6 %; EOSINOPHILS # (AUTO) 0.2 10^3/uL (0.0-0.7); EOSINOPHILS % (AUTO) 3.2 %; HCT - HEMATOCRIT 43.3 % (42.0-52.0); HGB - HEMOGLOBIN 13.8 g/dL (14.0-18.0); LYMPHOCYTES % (AUTO) 14.4 %; MEAN CORPUSCULAR HEMOGLOBIN 30.2 pg (27.0-31.0); MEAN CORPUSCULAR HGB CONC 31.9 g/dL (32.0-36.0); MEAN CORPUSCULAR VOLUME 94.7 fL (80.0-94.0); MEAN PLATELET VOLUME 11.9 fL (7.4-11.4); MONOCYTES # (AUTO) 0.4 10^3/uL (0.0-1.0); MONOCYTES % (AUTO) 6.3 %; NEUTROPHILS % (AUTO) 75.3 %; PLT - PLATELET COUNT 145 10^3/uL (130-450); RED BLOOD COUNT 4.57 10^6/uL (4.70-6.10); RED CELL DISTRIBUTION WIDTH 13.5 % (12.0-15.0); WHITE BLOOD COUNT 6.7 x10^3/uL (4.8-10.8)
== END 2023-02-16 11:24 | disposition home or self-care (01) ==
LOC: LAB.N 11:23
DX: T78.1XXA Other adverse food reactions, not elsewhere classified, initial encounter (principal)
CPT/HCPCS: 36415; 81599; 82784; 82785; 85025; 85651

== ENCOUNTER 2023-04-02 18:33 | Emergency (ER) | payer MEDICARE, OTHER ==
[2023-04-02 18:53] VITALS: BP 118/76; O2SAT 96
--- NOTE | 2023-04-02 19:31 | ED Physician Documentation ---
PD HPI SKIN - Stated complaint Stated Complaint: LT HAND FINGER LAC - Chief complaint Chief Complaint: Laceration - History obtained from History obtained from: Patient - Additional information Additional information: 73-year-old male presents for left index finger laceration. He was working in his garage when he cut himself on a tool. He states he is up-to-date on his tetanus vaccination. He attempted to stem the bleeding at home, but it continued to bleed and he felt he may need stitches so he decided to present for evaluation.Denies numbness, decreased range of motion Review of Systems Skin: reports: Laceration (s) Musculoskeletal: denies: Neck pain, Back pain, Extremity pain, Joint pain, Extremity swelling, Joint swelling PD PAST MEDICAL HISTORY - Past Medical History Cardiovascular: Hypertension, High cholesterol, Angina, [place] Respiratory: Sleep apnea, CPAP use Endocrine/Autoimmune: None GI: Other : None HEENT: None Psych: Depression Musculoskeletal: Fibromyalgia, Chronic back pain Derm: None - Past Surgical History Past Surgical History: Yes General: Other Ortho: Arthroscopic surgery Cardiovascular: CABG HEENT: Tonsil/Adenoidectomy Derm: Skin cancer surgery - Present Medications Home Medications: Ambulatory Orders Medication Instructions Recorded Confirmed Cetirizine [ZyrTEC] 10 mg PO DAILY 08/18/13 05/09/22 Furosemide 20 mg PO DAILY 08/18/13 05/09/22 Levothyroxine [Synthroid] 175 mcg PO DAILY 08/18/13 05/09/22 Losartan [Cozaar] 50 mg PO BID 08/18/13 05/09/22 Potassium Chloride [K-Dur] 20 meq PO BID 08/18/13 05/09/22 lamoTRIgine [LaMICtal] 200 mg PO QPM 08/18/13 05/09/22 Cyanocobalamin (Vitamin B-12) 1,000 mcg PO DAILY 02/10/14 05/09/22 [B-12] Fluticasone [Flonase] 1 sprays MIKEY DAILY PRN 02/10/14 05/09/22 Multivitamin [Multivitamins] 1 each PO DAILY 02/10/14 05/09/22 Ubidecarenone [Co Q-10] 100 mg PO DAILY 02/10/14 05/09/22 Cyclobenzaprine [Flexeril] 10 mg PO TID PRN 05/18/17 05/09/22 Ropinirole HCl 6 mg PO BID 05/18/17 05/09/22 Clopidogrel [Plavix] 75 mg PO DAILY 03/19/19 05/09/22 Gabapentin 4 cap PO BID 03/19/19 05/09/22 traZODone [Desyrel] 50 mg PO HS 03/19/19 05/09/22 Acetylcysteine [Nac] 600 mg PO DAILY 04/11/22 05/09/22 Albuterol Sulfate [Proair 1 - 2 puffs IH Q4HR PRN 04/11/22 05/09/22 Digihaler] Alpha Lipoic Acid 600 mg PO BID 04/11/22 05/09/22 Calcium Carbonate [Calcium Antacid] 200 mg PO TIDWM 04/11/22 05/09/22 Cholecalciferol (Vitamin D3) 3,000 mcg PO DAILY 04/11/22 05/09/22 [Vitamin D3] Duloxetine HCl [Cymbalta] 60 mg PO DAILY 04/11/22 05/09/22 Finasteride [Proscar] 5 mg PO DAILY 04/11/22 05/09/22 Fluticasone 44 Mcg [Flovent] 1 puffs INH PRN PRN 04/11/22 05/09/22 Metformin HCl 1,000 mg PO BID 04/11/22 05/09/22 Metronidazole 1% Gel [Metrogel] 0 gm TOP PRN PRN 04/11/22 05/09/22 Nystatin/Triamcin 0 gm TP PRN PRN 04/11/22 05/09/22 [Nystatin-Triamcinolone Ointm] Pantoprazole [Protonix] 40 mg PO BID 04/11/22 05/09/22 Rosuvastatin Calcium [Crestor] 40 mg PO DAILY PM 04/11/22 05/09/22 Tamsulosin [Flomax] 2 cap PO DAILY PM 04/11/22 05/09/22 modafiniL [Provigil] 200 mg PO BID 04/11/22 05/09/22 Dulaglutide [Trulicity] 0.75 mg SQ 05/09/22 Ertapenem [INVanz] 1 gm IV Q24H #1 05/10/22 LORazepam [Ativan] 1 mg PO QPM PRN #3 tablet 05/11/22 - Allergies Allergies/Adverse Reactions: Allergies Allergy/AdvReac Type Severity Reaction Status Date / Time No Known Drug Allergies Allergy Verified 05/12/22 14:52 - Social History Does the pt smoke?: No Smoking Status: Never smoker Does the pt drink ETOH?: No Does the pt have substance abuse?: No - Immunizations Immunizations are current?: Yes - POLST Patient has POLST: No PD ED PE NORMAL - Vitals Vital signs reviewed: Yes - General General: Alert and oriented X 3, No acute distress, Well developed/nourished - Derm Derm: Normal color, Warm and dry, Other (2cm oblique laceration over dorsum of L index finger crossing PIP joint) - Extremities Extremities: No deformity, Normal ROM s pain, No edema, Other (Full ROM of finger, no deficits in flexion or extension) - Neuro Neuro: Alert and oriented X 3, drawbench operator 2-12 intact, No motor deficit, Normal speech - Psych Psych: Normal mood, Normal affect Results - Vitals Vitals: Vital Signs - 24 hr 04/02/23 18:44 Temperature 36.7 C Heart Rate 73 Respiratory 15 Rate Blood Pressure 118/76 O2 Saturation 96 Oxygen O2 Source Room air Procedures - Laceration (location) Finger left Length in cm: 2 Wound type: Linear Neurovascular status: Sensory intact, Motor intact, Vascular intact Tendon involvement: Tendon intact Anesthesia: Lidocaine 1% Wound preparation: Chlorhexadine, Irrigated copiously NS Skin layer closure: Nylon, Size #-0 - enter number (4), Sutures - enter # (6) PD Medical Decision Making - ED course ED course: Finger laceration. Neurovascularly intact. Up-to-date on tetanus shot. Repaired per procedure note. Dressing applied. Wound care instructions discussed with patient. Departure - Departure Disposition: 01 Home, Self Care Clinical Impression: Laceration Condition: Stable Instructions: ED Laceration Hand Comments: SUTURE REMOVAL IN 5-7 DAYS. KEEP CLEAN AND DRY. DO NO PLACE IN STANDING WATER. IF YOU NOTICE REDNESS, SWELLING, DRAINAGE FROM THE FINGER PLEASE RETURN FOR EVALUATION. Forms: PCP List Discharge Date/Time: 04/02/23 19:43
== END 2023-04-02 19:43 | disposition home or self-care (01) ==
LOC: ED 18:33
DX: S61.211A Laceration without foreign body of left index finger without damage to nail, initial encounter (principal); W27.8XXA Contact with other nonpowered hand tool, initial encounter; Y92.008 Other place in unspecified non-institutional (private) residence as the place of occurrence of the external cause; I10 Essential (primary) hypertension; E78.00 Pure hypercholesterolemia, unspecified; Z79.899 Other long term (current) drug therapy; Z79.02 Long term (current) use of antithrombotics/antiplatelets; Z79.84 Long term (current) use of oral hypoglycemic drugs
CPT/HCPCS: 12001; 99281

== ENCOUNTER 2023-06-03 14:09 | Outpatient (CLI) | payer MEDICARE, OTHER ==
[2023-06-03 18:02] LABS: BASOPHILS % (AUTO) 0.6 %; EOSINOPHILS # (AUTO) 0.2 10^3/uL (0.0-0.7); EOSINOPHILS % (AUTO) 3.3 %; HCT - HEMATOCRIT 42.4 % (42.0-52.0); HGB - HEMOGLOBIN 13.6 g/dL (14.0-18.0); LYMPHOCYTES # (AUTO) 1.3 10^3/uL (1.5-3.5); LYMPHOCYTES % (AUTO) 21.3 %; MEAN CORPUSCULAR HEMOGLOBIN 29.1 pg (27.0-31.0); MEAN CORPUSCULAR HGB CONC 32.1 g/dL (32.0-36.0); MEAN CORPUSCULAR VOLUME 90.6 fL (80.0-94.0); MONOCYTES # (AUTO) 0.4 10^3/uL (0.0-1.0); MONOCYTES % (AUTO) 5.9 %; NEUTROPHILS # (AUTO) 4.3 10^3/uL (1.5-6.6); NEUTROPHILS % (AUTO) 68.7 %; PLT - PLATELET COUNT 144 10^3/uL (130-450); RED BLOOD COUNT 4.68 10^6/uL (4.70-6.10); RED CELL DISTRIBUTION WIDTH 13.7 % (12.0-15.0); WHITE BLOOD COUNT 6.3 x10^3/uL (4.8-10.8)
[2023-06-03 18:28] LABS: CREATININE,URINE 103.3 mg/dL; MICROALBUM/CREATININE RATIO,UR 16.5 ug/mg (<30.0); MICROALBUMIN,URINE 1.7 mg/dL
[2023-06-03 18:30] LABS: ALBUMIN 4.3 g/dL (3.2-5.5); ALKALINE PHOSPHATASE 22 IU/L (42-121); ALT ALANINE AMINOTRANSFERASE 27 IU/L (10-60); AST ASPARTATE AMINOTRANSFERASE 25 IU/L (10-42); BILIRUBIN,TOTAL 0.6 mg/dL (0.2-1.0); BUN - BLOOD UREA NITROGEN 13 mg/dL (6-20); CALCIUM 9.8 mg/dL (8.5-10.3); CARBON DIOXIDE - CO2 31 mmol/L (21-32); CHLORIDE 100 mmol/L (101-111); CHOL/HDL RATIO 3.5 (<5.0); CHOLESTEROL 159 mg/dL; CREATININE 0.8 mg/dL (0.6-1.3); GFR - MDRD 95 (>89); GLUCOSE 134 mg/dL (74-104); HDL CHOLESTEROL 46 mg/dL; LDL CHOLESTEROL,CALCULATED 66 mg/dL; LDL/HDL RATIO 1.4 (<3.6); POTASSIUM 3.9 mmol/L (3.5-4.5); SODIUM 138 mmol/L (135-145); TOTAL PROTEIN 6.5 g/dL (6.4-8.9); TRIGLYCERIDES 233 mg/dL (48-352); VLDL CHOLESTEROL 47 mg/dL
[2023-06-03 19:04] LABS: THYROID STIMULATING HORMONE 2.49 uIU/mL (0.34-5.60)
[2023-06-03 20:52] LABS: ESTIMATED AVERAGE GLUCOSE 128 mg/dL (70-100); HEMOGLOBIN A1c% 6.1 % (4.27-6.07)
== END 2023-06-03 14:10 | disposition home or self-care (01) ==
LOC: LAB.N 14:09
PROVIDERS: ATTEND Internal Medicine Endocrinology, Diabetes & Metabolism
DX: E11.9 Type 2 diabetes mellitus without complications (principal); R53.83 Other fatigue
CPT/HCPCS: 36415; 80053; 80061; 82043; 82570; 82607; 82746; 83036; 83540; 83721; 84402; 84443; 84466; 85025

== ENCOUNTER 2023-10-23 21:02 | Outpatient (CLI) | payer MEDICARE, OTHER ==
--- NOTE | 2023-10-25 07:20 | Ultrasound Report ---
PROCEDURE: Carotid Doppler Complete INDICATIONS: SYNCOPE TECHNIQUE: Color and pulse Doppler interrogation was performed of both carotid systems, with image documentation and velocity measurements. COMPARISON: None. FINDINGS: Right side: Brachial blood pressure: 122/73 mm Hg. Common carotid artery peak systolic velocity: 74 cm/sec. Internal carotid artery peak systolic velocity: 69 cm/sec. Internal carotid artery end diastolic velocity: 31 cm/sec. External carotid artery peak systolic velocity: 93 cm/sec. ICA/CCA peak systolic ratio: 2.9 . Contreras scale imaging description: No significant atherosclerotic plaque. Percent internal carotid artery stenosis: No stenosis. Vertebral artery: Flow direction is antegrade. Left side: Brachial blood pressure: 129/75 mm Hg. Common carotid artery peak systolic velocity: 70 cm/sec. Internal carotid artery peak systolic velocity: 71 cm/sec. Internal carotid artery end diastolic velocity: 77 cm/sec. External carotid artery peak systolic velocity: 94 cm/sec. ICA/CCA peak systolic ratio: 1.0 . Contreras scale imaging description: No significant atherosclerotic plaque. Percent internal carotid artery stenosis: No stenosis. Vertebral artery: Flow direction is antegrade. IMPRESSION: 1. In the right internal carotid artery, there is no stenosis based on peak systolic velocity criteri a. 2. In the left internal carotid artery, there is no stenosis based on peak systolic velocity criteria . 3. Antegrade blood flow within the right vertebral artery. 4. Antegrade blood flow within the left vertebral artery. The estimate of stenosis included in the report of the imaging study was calculated using the [facility]-end orsed standards of carotid artery stenosis. Reviewed by: Virgen Kim MD on 10/25/2023 7:19 AM PDT Approved by: Virgen Kim MD on 10/25/2023 7:19 AM PDT Station ID: [id number]
== END 2023-10-23 21:03 | disposition home or self-care (01) ==
LOC: DI 21:02
PROVIDERS: ATTEND Physician Assistant Medical
DX: R55 Syncope and collapse (principal)
CPT/HCPCS: 93880

== ENCOUNTER 2023-11-11 10:26 | Outpatient (CLI) | payer MEDICARE, OTHER | END 2023-11-11 10:27 | disposition home or self-care (01) | LOC: DI 10:26 | PROVIDERS: ATTEND Physician Assistant Medical | DX: R55 Syncope and collapse (principal) | CPT/HCPCS: 93307 ==

== ENCOUNTER 2024-02-17 14:09 | Outpatient (CLI) | payer MEDICARE, OTHER ==
--- NOTE | 2024-02-18 15:54 | Ultrasound Report ---
PROCEDURE: Renal (Retroperitoneal) INDICATIONS: RECURRENT NEPHROLITHIASIS TECHNIQUE: Real-time scanning was performed of the retroperitoneal organs, with image documentation. COMPARISON: None. FINDINGS: Kidneys: Kidneys are normal in size. Right kidney measures 10.8 cm long; left kidney measures 12.9 cm long. Right renal cortical thickness is 1.3 cm; left renal cortical thickness is 1.6 cm. No diane d masses, hydronephrosis, or nephrolithiasis. Several right renal simple cysts, largest right renal cyst 2.3 x 2.1 x 2.1 cm Bladder: Pre-void bladder volume is 167 mL. Post-void residual is 12 mL. Pre-void images demonstra te no intraluminal masses or stones. On pre-void images, bilateral ureteral jets are noted with colo r Doppler interrogation. (Of note, ureteral jets may not be detectable in up to 25% of cases due to insufficient differences in specific gravity between ureteral and bladder urine). Miscellaneous: No free abdominal fluid. IMPRESSION: Simple right renal cysts. No hydronephrosis. No evidence of calculi by ultrasound Reviewed by: Rico George MD on 02/18/2024 2:53 PM JOSE Approved by: Rico George MD on 02/18/2024 2:53 PM AKDT Station ID: [id number]
== END 2024-02-17 14:10 | disposition home or self-care (01) ==
LOC: DI 14:09
PROVIDERS: ATTEND Internal Medicine Nephrology
DX: N20.0 Calculus of kidney (principal); N18.9 Chronic kidney disease, unspecified; K76.89 Other specified diseases of liver

== ENCOUNTER 2024-02-22 14:27 | Emergency (ER) | payer MEDICARE, OTHER ==
--- NOTE | 2024-02-22 15:01 | ED Physician Documentation ---
PD HPI SYNCOPE - Stated complaint Stated Complaint: RT HAND LAC - Chief complaint Chief Complaint: Neuro - History obtained from History obtained from: Patient, Family - Additional information Additional information: 74-year-old male who has a history of of hypertension, CAD, TIA, prior episodes of syncope presents after a possible syncopal episode during which time he sustained a hand laceration. The patient states that he jumped up quickly from a recliner chair to answer the doorbell and walked to the door, started talking to the gentleman at the door and then felt dizzy and said he is going to pass out. He did fall to the ground, did not lose consciousness. At some point during the fall he struck his right palm on something though he is not sure what, and after the gentleman helped him up they noticed that he was bleeding from his right hand. They called EMS and he was evaluated but patient declined the EMS transport to the hospital and drove himself here. He states he has had some syncopal episodes in the past that his media operator thought was secondary to his diuretics. He was hospitalized recently in November for a day for evaluation, EF at that time was 50 to 55% and medication was adjusted. He states he does drink plenty water throughout the day, has had a mild viral illness which she is at the tail end of now but has not been feeling great for the last week or so although feeling better than prior days. He has not had any vomiting or diarrhea, no abdominal pain, denies any chest pain or difficulty breathing. He denies any other injuries in the fall other than a right hand laceration. Review of Systems Constitutional: reports: Reviewed and negative Eyes: reports: Reviewed and negative Ears: reports: Reviewed and negative Nose: reports: Reviewed and negative Throat: reports: Reviewed and negative Cardiac: reports: Reviewed and negative Respiratory: reports: Reviewed and negative GI: reports: Reviewed and negative : reports: Reviewed and negative Skin: reports: Laceration (s) Musculoskeletal: reports: Reviewed and negative Neurologic: reports: Syncope Psychiatric: reports: Reviewed and negative Endocrine: reports: Reviewed and negative PD PAST MEDICAL HISTORY - Past Medical History Past Medical History: Yes Cardiovascular: Hypertension, High cholesterol, Coronary artery disease, Angina Respiratory: Sleep apnea, CPAP use Neuro: TIA Endocrine/Autoimmune: Type 2 diabetes, HyPOthyroidism GI: Other : None HEENT: None Psych: Depression Musculoskeletal: Fibromyalgia, Chronic back pain Derm: None - Past Surgical History Past Surgical History: Yes General: Other Ortho: Arthroscopic surgery Cardiovascular: CABG HEENT: Tonsil/Adenoidectomy Derm: Skin cancer surgery - Present Medications Home Medications: Ambulatory Orders Medication Instructions Recorded Confirmed Cetirizine [ZyrTEC] 10 mg PO DAILY 08/18/13 02/22/24 Levothyroxine [Synthroid] 175 mcg PO DAILY 08/18/13 02/22/24 Losartan [Cozaar] 50 mg PO BID 08/18/13 02/22/24 Potassium Chloride [K-Dur] 20 meq PO BID 08/18/13 02/22/24 Cyanocobalamin (Vitamin B-12) 1,000 mcg PO DAILY 02/10/14 02/22/24 [B-12] Multivitamin [Multivitamins] 1 each PO DAILY 02/10/14 02/22/24 Cyclobenzaprine [Flexeril] 10 mg PO TID PRN 05/18/17 02/22/24 Ropinirole HCl 6 mg PO BID 05/18/17 02/22/24 Clopidogrel [Plavix] 75 mg PO DAILY 03/19/19 02/22/24 Gabapentin 2 - 4 cap PO BID 03/19/19 02/22/24 traZODone [Desyrel] 50 mg PO HS 03/19/19 02/22/24 Acetylcysteine [Nac] 600 mg PO DAILY 04/11/22 02/22/24 Albuterol Sulfate [Proair 1 - 2 puffs IH Q4HR PRN 04/11/22 02/22/24 Digihaler] Alpha Lipoic Acid 600 mg PO BID 04/11/22 02/22/24 Calcium Carbonate [Calcium Antacid] 200 mg PO TIDWM 04/11/22 02/22/24 Cholecalciferol (Vitamin D3) 3,000 mcg PO DAILY 04/11/22 02/22/24 [Vitamin D3] Duloxetine HCl [Cymbalta] 60 mg PO DAILY 04/11/22 02/22/24 Finasteride [Proscar] 5 mg PO DAILY 04/11/22 02/22/24 Fluticasone 44 Mcg [Flovent] 2 puffs INH BID 04/11/22 02/22/24 Metformin HCl 1,000 mg PO BID 04/11/22 02/22/24 Pantoprazole [Protonix] 40 mg PO BID 04/11/22 02/22/24 Rosuvastatin Calcium [Crestor] 40 mg PO DAILY PM 04/11/22 02/22/24 Tamsulosin [Flomax] 2 cap PO DAILY PM 04/11/22 02/22/24 Ferrous Sulfate [Slow Fe] 137 mg PO DAILY 02/22/24 02/22/24 Melatonin 5 mg PO HS 02/22/24 02/22/24 Ubidecarenone [Co Q-10] 100 mg PO DAILY 02/22/24 02/22/24 lamoTRIgine [Lamictal Xr] 200 mg PO DAILY 02/22/24 02/22/24 - Allergies Allergies/Adverse Reactions: Allergies Allergy/AdvReac Type Severity Reaction Status Date / Time No Known Drug Allergies Allergy Verified 02/22/24 14:30 - Social History Does the pt smoke?: No Smoking Status: Never smoker Does the pt drink ETOH?: No Does the pt have substance abuse?: No - Immunizations Immunizations are current?: Yes - POLST Patient has POLST: No PD ED PE NORMAL - Vitals Vital signs reviewed: Yes - General General: Alert and oriented X 3, No acute distress, Well developed/nourished - HEENT HEENT: Atraumatic, Moist mucous membranes - Neck Neck: Supple, no meningeal sign, No JVD - Cardiac Cardiac: RRR, No murmur, No gallop, No rub - Respiratory Respiratory: No respiratory distress, Clear bilaterally - Abdomen Abdomen: Normal bowel sounds, Soft, Non tender, Non distended - Back Back: No CVA TTP, No spinal TTP - Derm Derm: Normal color, Warm and dry, Other (6 cm laceration palmar surface of the right hand base of thumb. No tendon involvement.) - Extremities Extremities: No deformity, Normal ROM s pain, Other (Normal thumb and finger range of motion the right hand no tendon involvement) - Neuro Neuro: Alert and oriented X 3 Eye Opening: Spontaneous Motor: Obeys Commands Verbal: Oriented GCS Score: 15 - Psych Psych: Normal mood, Normal affect Results - Vitals Vitals: Vital Signs - 24 hr 02/22/24 02/22/24 02/22/24 14:31 16:07 16:35 Temperature 36.6 C Heart Rate 97 83 Heart Rate [ 83 Sitting] Heart Rate [ 84 Standing] Heart Rate [ 80 Supine] Respiratory 20 16 Rate Blood Pressure 124/70 132/89 H Blood Pressure 110/78 [Sitting] Blood Pressure 101/65 [Standing] Blood Pressure 123/81 H [Supine] O2 Saturation 98 97 02/22/24 18:00 Temperature Heart Rate 71 Heart Rate [ Sitting] Heart Rate [ Standing] Heart Rate [ Supine] Respiratory 20 Rate Blood Pressure 114/84 H Blood Pressure [Sitting] Blood Pressure [Standing] Blood Pressure [Supine] O2 Saturation 96 Oxygen O2 Source Room air - EKG (time done) No standard instances EKG releavant findings:: EKG personally interpreted by author of this note. Relevant findings are: Rate: Rate (enter#) (77) Rhythm: NSR Munden: Normal Intervals: Normal RI QRS: Normal Ischemia: Non specific changes Computer interpretation: Agree with computer - Labs Labs: Laboratory Tests 02/22/24 02/22/24 02/22/24 14:43 14:51 14:51 WBC 4.2 L RBC 4.59 L Hgb 13.9 L Hct 42.6 MCV 92.8 MCH 30.3 MCHC 32.6 RDW 13.6 Plt Count 151 MPV 10.8 Neut # (Auto) 2.6 Lymph # (Auto) 1.2 L Ceiba # (Auto) 0.3 Eos # (Auto) 0.2 Baso # (Auto) 0.0 Absolute Nucleated RBC 0.00 Nucleated RBC % 0.0 Sodium 139 Potassium 3.7 Chloride 104 Carbon Dioxide 30 Anion Gap 5.0 L BUN 8 Creatinine 1.0 Estimated GFR (MDRD) 73 L Glucose 106 H POC Whole Bld Glucose 116 H Calcium 9.4 Total Bilirubin 0.6 AST 15 ALT 13 Alkaline Phosphatase 21 L Troponin I High Sens 9.3 Total Protein 6.5 Albumin 4.2 Globulin 2.3 Albumin/Globulin Ratio 1.8 Lipase 17 - Rads (name of study) No standard instances Relevant Findings:: Final report received Procedures - Laceration (location) Hand right Radial Length in cm: 6 Wound type: Curved Neurovascular status: Sensory intact, Motor intact, Vascular intact Tendon involvement: Tendon intact Anesthesia: Lidocaine 1% with epi Wound preparation: Irrigated copiously NS Skin layer closure: Nylon, Sutures - enter # (8) Other: Patient tolerated well, Dressing applied, Tetanus UTD PD Medical Decision Making - ED course Complexity details: reviewed results, re-evaluated patient, considered mayra edwin, d/w patient ED course: This is a very nice 74-year-old gentleman who presented after a syncopal episode as described in HPI as well as a right hand laceration. He is awake alert with reassuring physical exam other than a 6 cm right palm laceration which was cleaned and repaired as charted above. Regards to his syncope, it was suspected to be orthostatic syncope as patient jumped up quickly to answer the door and had the syncopal episode. Lower suspicion for acute neurologic event and the patient has no chest pain or other symptoms to suggest a cardiogenic event. We did obtain EKG which showed no acute ischemic changes, labs are reassuring, head CT shows no acute findings. He was initially mildly orthostatic and received 500 mL of normal saline and felt substantially better with improved orthostatics. I think he is stable for discharge home when she has had a fairly complete workup for this in the past including echocardiogram in November of this year which was reassuring. He was advised to stay well-hydrated, mostly from a seated to standing position and continue follow-up with his media operator and PCP for this issue. He may need additional adjustment of his heart medication and diuretics in the future. I strongly urged him not to jump up quickly and rather move slowly from a seated to standing position to avoid orthostatic effects. Return precaution reviewed in detail with the patient and his . Departure - Departure Disposition: 01 Home, Self Care Clinical Impression: Orthostatic hypotension Laceration of right hand Qualifiers: Encounter type: initial encounter Foreign body presence: without foreign body Qualified Code(s): S61.411A - Laceration without foreign body of right hand, initial encounter Syncope Qualifiers: Syncope type: vasovagal syncope Qualified Code(s): R55 - Syncope and collapse Condition: Good Instructions: ED Laceration Hand, ED Syncope Vasovagal Comments: We placed 8 sutures in your right hand. This should remain in place for 10 to 14 days and then can be removed. If there is any signs of infection such as increased redness, swelling, purulent drainage, increased pain or new concerns about the wound, please follow-up for reevaluation. Keep wound covered and dry for the next 24 hours then you can remove the dressing, wash your hands as normal but do not soak the wound or allowed to be persistently wet. Change dressing as needed. I think your syncopal episode was likely due to abruptly standing up along with mild dehydration, likely from your heart medications. You were mildly orthostatic here (meaning when you stood up, your blood pressure dropped a bit). It sounds like a similar situation has happened to you in the past. Your head CT here today is reassuring as are your labs and EKG. I recommend continuing follow-up with your media operator for this issue but likely you will need to get up more slowly from a lying to seated and then standing position, and utilize assistive devices as needed, and stay well hydrated. If you feel dizzy sit down to avoid any injuries from a fall. If you have any additional symptoms with this including chest pain or difficulty breathing we would like you to seek care. Forms: PCP List Discharge Date/Time: 02/22/24 18:04
[2024-02-22 15:02] LABS: BASOPHILS % (AUTO) 0.2 %; EOSINOPHILS # (AUTO) 0.2 10^3/uL (0.0-0.7); EOSINOPHILS % (AUTO) 4.3 %; HCT - HEMATOCRIT 42.6 % (42.0-52.0); HGB - HEMOGLOBIN 13.9 g/dL (14.0-18.0); LYMPHOCYTES # (AUTO) 1.2 10^3/uL (1.5-3.5); LYMPHOCYTES % (AUTO) 27.3 %; MEAN CORPUSCULAR HEMOGLOBIN 30.3 pg (27.0-31.0); MEAN CORPUSCULAR HGB CONC 32.6 g/dL (32.0-36.0); MEAN CORPUSCULAR VOLUME 92.8 fL (80.0-94.0); MEAN PLATELET VOLUME 10.8 fL (7.4-11.4); MONOCYTES # (AUTO) 0.3 10^3/uL (0.0-1.0); MONOCYTES % (AUTO) 7.1 %; NEUTROPHILS # (AUTO) 2.6 10^3/uL (1.5-6.6); NEUTROPHILS % (AUTO) 60.9 %; PLT - PLATELET COUNT 151 10^3/uL (130-450); RED BLOOD COUNT 4.59 10^6/uL (4.70-6.10); RED CELL DISTRIBUTION WIDTH 13.6 % (12.0-15.0); WHITE BLOOD COUNT 4.2 x10^3/uL (4.8-10.8)
[2024-02-22 15:22] LABS: ALBUMIN 4.2 g/dL (3.2-5.5); ALBUMIN/GLOBULIN RATIO 1.8 (1.0-2.2); BILIRUBIN,TOTAL 0.6 mg/dL (0.2-1.0); CALCIUM 9.4 mg/dL (8.5-10.3); POTASSIUM 3.7 mmol/L (3.5-4.5); TOTAL PROTEIN 6.5 g/dL (6.4-8.9)
[2024-02-22 15:26] LABS: TROPONIN I HIGH SENSITIVITY 9.3 ng/L (2.3-19.7)
--- NOTE | 2024-02-22 15:28 | CT Report ---
PROCEDURE: Head WO INDICATIONS: syncope TECHNIQUE: Noncontrast 4.5 mm thick angled axial sections acquired from the foramen magnum to the vertex. For r adiation dose reduction, the following was used: automated exposure control, adjustment of mA and/or kV according to patient size. COMPARISON: None. FINDINGS: Image quality: Excellent. CSF spaces: Basal cisterns are patent. No extra-axial fluid collections. Ventricles are normal in size and shape. Brain: No midline shift. No intracranial masses or hemorrhage. Contreras-white matter interface is norm al. Skull and face: Calvarium and visualized facial bones are intact, without suspicious lesions. Sinuses: Mild mucosal thickening of the maxillary sinuses. IMPRESSION: No acute intracranial pathology. Reviewed by: Antonino Nicole MD on 02/22/2024 3:27 PM PDT Approved by: Antonino Nicole MD on 02/22/2024 3:27 PM PDT Station ID: [id number]
[2024-02-22] MEDS: LIDOCAINE 1%-EPI 1:100000 20 ML MDV SUBQ STA (16:00)
[2024-02-22] MEDS: SODIUM CHLORIDE 0.9% 500 ML IV STA (16:53)
[2024-02-22 18:10] VITALS: BP 114/84; O2SAT 96
== END 2024-02-22 18:04 | disposition home or self-care (01) ==
LOC: ED 14:27
DX: I95.1 Orthostatic hypotension (principal); S61.411A Laceration without foreign body of right hand, initial encounter; W18.39XA Other fall on same level, initial encounter; Y93.89 Activity, other specified; Y92.008 Other place in unspecified non-institutional (private) residence as the place of occurrence of the external cause
CPT/HCPCS: 12002; 36415; 80053; 83690; 84484; 85025; 93005; 99283; 99284